=== PATIENT | male | born 1945 | race Two or more races ===

== ENCOUNTER 2018-10-10 09:22 | Inpatient (IN) | payer MEDICARE, MEDICAID ==
[~2018-10-10] VITALS: Ht 172.7 cm; Wt 77.1 kg
[2018-10-10 01:15] VITALS: BP 150/80
--- NOTE | 2018-10-10 09:22 | NUR ---
BIB SELF W C/O MIDSTERNAL CHEST PAIN X 5 DAYS, COUGH X 10 DAYS. TO ER BED 4, HOOKED TO MONITOR, CHANGED TO DR RIO BRICEÑO AT BEDSIDE, RESEARCH EDITOR AT BEDSIDE
[2018-10-10] MEDS ORDERED: IPRATROPIUM NEB FS 0.5 MG/2.5 ML AMPUL.NEB ONE (09:49)
[2018-10-10] MEDS ORDERED: ALBUTEROL FS 2.5 MG/3 ML VIAL.NEB ONE (09:49)
[2018-10-10 09:50] LABS: BASOPHILS % (AUTO) 0.5 % (0.0-2.0); EOSINOPHILS % (AUTO) 3.8 % (0.0-6.0); HEMATOCRIT 37 % (39-51); HEMOGLOBIN 12.9 g/dL (13.5-17.5); LYMPHOCYTES # (AUTO) 1.7 /CMM (0.8-4.8); LYMPHOCYTES % (AUTO) 18.4 % (20.0-44.0); MEAN CORPUSCULAR HGB CONC 35 g/dl (31.0-36.0); MEAN CORPUSCULAR VOLUME 92 fL (80-96); MONOCYTES % (AUTO) 10.6 % (2.0-12.0); NEUTROPHILS # (AUTO) 6.1 /CMM (1.8-8.9); NEUTROPHILS % (AUTO) 66.7 % (43.0-81.0); PLATELET COUNT (AUTO) 146 /CMM (150-450); RED BLOOD CELL COUNT(AUTO) 4.05 MIL/uL (4.5-6.0); WHITE BLOOD COUNT (AUTO) 9.2 K/uL (4.3-11.0)
[2018-10-10 09:57] LABS: POTASSIUM 3.9 mmol/L (3.5-5.1)
[2018-10-10 09:58] LABS: CALCIUM, SERUM 8.7 mg/dL (8.5-10.1); CARBON DIOXIDE 28 mmol/L (21-32); CHLORIDE 105 mmol/L (98-107); CREATININE 1.3 mg/dL (0.6-1.3); GLUCOSE 130 mg/dL (74-106); SODIUM SERUM 140 mmol/L (136-145); UREA NITROGEN, BLOOD 18 mg/dL (7-18)
[2018-10-10] MEDS ORDERED: IV NS 0.9% 1,000 ML BAG IV ONE (10:00)
[2018-10-10] MEDS ORDERED: IPRATROPIUM NEB FS 0.5 MG/2.5 ML AMPUL.NEB NEB ONE (10:00)
[2018-10-10] MEDS ORDERED: ALBUTEROL FS 2.5 MG/3 ML VIAL.NEB NEB ONE (10:00)
[2018-10-10 10:04] LABS: ALANINE AMINOTRANSFERASE 33 U/L (12-78); ALBUMIN 3.6 g/dL (3.4-5.0); ALKALINE PHOSPHATASE 59 U/L (46-116); ASPARTATE AMINOTRANSFERASE 16 U/L (15-37); BILIRUBIN,DIRECT 0.1 mg/dL (0.0-0.2); BILIRUBIN,TOTAL 0.7 mg/dL (0.2-1.0); TOTAL PROTEIN, SERUM 7.4 g/dL (6.4-8.2)
--- NOTE | 2018-10-10 10:07 | NUR ---
ONGOING BREATHING TREATMENT
--- NOTE | 2018-10-10 11:12 | NUR ---
CALLED [employer] [facility]SP WAS PAGED.
[2018-10-10] MEDS ORDERED: CHOL100044 PO (11:13)
[2018-10-10] MEDS ORDERED: CARV25TA2 PO (11:13)
[2018-10-10] MEDS ORDERED: LEVO88TA2 PO (11:13)
[2018-10-10] MEDS ORDERED: SACU1TAB4 PO (11:13)
[2018-10-10] MEDS ORDERED: POTA20TA83 PO (11:13)
[2018-10-10] MEDS ORDERED: METF500T PO (11:13)
[2018-10-10] MEDS ORDERED: CLOP75TA15 PO (11:13)
[2018-10-10] MEDS ORDERED: CEFTRIAXONE 1GM BAG (ER ONLY) 50 ML IV ONE ×2 (11:28→11:30)
[2018-10-10] MEDS ORDERED: ASPIRIN 81 MG TAB.CHEW ONE (11:28)
[2018-10-10] MEDS ORDERED: AZITHROMYCIN 500 MG in IV D5W 250 ML IV ONE (11:30)
[2018-10-10] MEDS ORDERED: ASPIRIN 81 MG TAB.CHEW PO ONE (11:30)
--- NOTE | 2018-10-10 11:30 | NUR ---
PT DOES NOT WANT TO RECEIVE CEFTRIAXONE AND ZITHROMYCIN. FAM WOULD LIKE TO GO HOME AND CHECK FOR PT'S ALLERGY TO ANTIBIOTICS. MADE AWARE
--- NOTE | 2018-10-10 11:45 | NUR ---
FAMILY INFORMED PT'S ALLERGY TO CEPHALEXIN. MADE AWARE. CANCELLED ORDER FOR CEFTRIAXONE AND ZITHROMYCIN.
--- NOTE | 2018-10-10 11:54 | NUR ---
REPORT GIVEN TO CARLOS SIMEON OF TELEMETRY UNIT
[2018-10-10] MEDS ORDERED: LEVOFLOXACIN 750 MG /D5W 150ML 150 ML IV ONE ×2 (11:55→12:00)
--- NOTE | 2018-10-10 12:50 | NUR ---
MS/tin pot operator New admission from emergency room with persistent cough for the past 10 days with some chest pain due to coughing. Patient fully admitted apart from skin assessment, refusing to allow at this time. Orders given by Kevin Slater NP. Oriented to new surroundings, made aware of how to operate bed controls, TV remote and how to call for nurse. Will continue to monitor and ensure safety.
[2018-10-10] MEDS ORDERED: DEXTROSE 50%-WATER 50 ML DISP.SYRIN IV PRN (13:00)
--- NOTE | 2018-10-10 15:53 | NUR ---
MS/RN Breathing treatment RT at bedside for breathing treatment.
[2018-10-10] MEDS: ALBUTEROL FS 2.5 MG/3 ML VIAL.NEB NEB PRN (15:55)
[2018-10-10] MEDS: IPRATROPIUM NEB FS 0.5 MG/2.5 ML AMPUL.NEB NEB PRN (15:55)
[2018-10-10 16:00] VITALS: BP 154/84
[2018-10-10 16:09] VITALS: BP 150/84
[2018-10-10] MEDS: BLOOD SUGAR DIAGNOSTIC 1 EACH STRIP IN SCH ×2 (17:00→22:06)
--- NOTE | 2018-10-10 18:23 | NUR ---
MS/RN End note Patient continues to complain of cough which in turn causes chest pain. MD notified and order given for Robitussin with codeine 5ml every 8 hours prn, order entered into computer. All other needs addressed, will endorse to closet organizer.
[2018-10-10] MEDS ORDERED: GUAIFENESIN/CODEINE 10 ML UDC PO PRN (18:30)
--- NOTE | 2018-10-10 18:43 | NUR ---
MS/RN Temperature Patient complaining of feeling hot, temperature checked and found to be 100.1. Tylenol 650mg ordered, blood cultures previously taken in ER and results still pending.
[2018-10-10] MEDS: ACETAMINOPHEN 325 MG TABLET PO PRN (18:46)
--- NOTE | 2018-10-10 19:30 | NUR ---
PRIMARY SPECIAL EDUCATION TEACHER NOTE RECEIVED IN STABLE A/O X4, SLOVAK SPEAKING BUT UNDERSTANDS SOMALI. NO SIGNS OF SOB OR DISTRESS. PT CURRENTY ON RA 96%. AND SON AT BEDSIDE. TELE MONITOR READING SR 111. IV ON RAC #18 PATENT AND INTACT H/L. SAFETY PRECAUTIONS IN PLACE: BED IN LOW, LOCKED POSITION, UPPER BED RAILS UP, AND CALL LIGHT WITHIN REACH. WILL CONT TO MONITOR.
[2018-10-10] MEDS: CARVEDILOL 12.5 MG TABLET PO SCH (20:33)
[2018-10-10 20:54] VITALS: BP 152/93
[2018-10-10] MEDS: INSULIN REGULAR, HUMAN 100 UNIT/ML 3 ML VIAL SQ PRN (21:59)
[2018-10-11 00:07] VITALS: BP 145/84
[2018-10-11] MEDS: ACETAMINOPHEN 325 MG TABLET PO PRN ×4 (03:07→20:17)
--- NOTE | 2018-10-11 03:07 | NUR ---
MS RN NOTE PRN TYLENOL 650 MG GIVEN FOR FEVER. 99.9. PT. CURRENTLY RESTING IN BED. NO SIGNS OF SOB OR DISTRESS. COOLING MEASURES ALSO STARTED. WILL CONT. TO MONITOR.
--- NOTE | 2018-10-11 03:19 | NUR ---
INTERNAL COMBUSTION ENGINE ASSEMBLER NOTE NOTIFIED IRIS RETAIL ADMINISTRATIVE ASSISTANT OF TROPONIN 0.078 AND BNP [id number] WITH NNO.
[2018-10-11] MEDS: ALBUTEROL FS 2.5 MG/3 ML VIAL.NEB NEB PRN ×4 (04:13→21:14)
[2018-10-11] MEDS: IPRATROPIUM NEB FS 0.5 MG/2.5 ML AMPUL.NEB NEB PRN ×4 (04:13→21:14)
[2018-10-11 04:17] VITALS: BP 131/60
--- NOTE | 2018-10-11 06:31 | NUR ---
KEY ACCOUNT COORDINATOR NOTE PT. IN STABLE A/O X4, AMERICAN SPEAKING BUT UNDERSTANDS MALAWIAN. NO SIGNS OF SOB OR DISTRESS. PT CURRENTLY ON RA 96%. TELE MONITOR READING SR 98. IV ON RAC #18 PATENT AND INTACT H/L. SAFETY PRECAUTIONS IN PLACE: BED IN LOW, LOCKED POSITION, UPPER BED RAILS UP, AND CALL LIGHT WITHIN REACH. WILL CONT TO MONITOR AND ENDORSE TO NEXT SHIFT FOR RIGOBERTO.
[2018-10-11] MEDS: BLOOD SUGAR DIAGNOSTIC 1 EACH STRIP IN SCH ×4 (06:46→21:23)
[2018-10-11 07:08] LABS: BASOPHILS % (AUTO) 0.2 % (0.0-2.0); EOSINOPHILS % (AUTO) 0.3 % (0.0-6.0); HEMATOCRIT 33 % (39-51); HEMOGLOBIN 11.2 g/dL (13.5-17.5); LYMPHOCYTES # (AUTO) 2.2 /CMM (0.8-4.8); LYMPHOCYTES % (AUTO) 19.9 % (20.0-44.0); MEAN CORPUSCULAR HGB CONC 34 g/dl (31.0-36.0); MEAN CORPUSCULAR VOLUME 91 fL (80-96); MONOCYTES % (AUTO) 8.7 % (2.0-12.0); NEUTROPHILS % (AUTO) 70.9 % (43.0-81.0); PLATELET COUNT (AUTO) 138 /CMM (150-450); RED BLOOD CELL COUNT(AUTO) 3.59 MIL/uL (4.5-6.0); WHITE BLOOD COUNT (AUTO) 11.2 K/uL (4.3-11.0)
[2018-10-11 07:21] LABS: CALCIUM, SERUM 8.6 mg/dL (8.5-10.1); CARBON DIOXIDE 25 mmol/L (21-32); CHLORIDE 106 mmol/L (98-107); CREATININE 1.4 mg/dL (0.6-1.3); GLUCOSE 97 mg/dL (74-106); POTASSIUM 3.6 mmol/L (3.5-5.1); SODIUM SERUM 142 mmol/L (136-145); UREA NITROGEN, BLOOD 21 mg/dL (7-18)
[2018-10-11] MEDS ORDERED: LEVOTHYROXINE SODIUM 175 MCG TABLET PO SCH (07:30)
[2018-10-11 07:32] LABS: CHOLESTEROL 105 mg/dL (<200); HDL CHOLESTEROL 42 mg/dL (40-60); LDL 61 mg/dL (0-99); THYROID STIMULATING HORMONE < 0.007 uIU/mL (0.358-3.74); TRIGLYCERIDES 70 mg/dL (30-150)
--- NOTE | 2018-10-11 07:32 | NUR ---
RN OPENING NOTES PT WAS RECEIVED IN BED AT LOWEST AND LOCKED POSITION WITH SIDE RAILS UP X2, A/O X4, BREATHING EVEN AND UNLABORED BUT NOTED TO HAVE A COUGH, NO S/S OF PAIN OR DISTRESS CURRENTLY NOTED, IV IS PATENT AND INTACT, SAFETY PRECAUTIONS IN PLACE, CALL LIGHT WITHIN REACH, WILL MONITOR ACCORDINGLY
--- NOTE | 2018-10-11 07:40 | NUR ---
RN NOTES PT CURRENTLY RECEIVING PRN BREATHING TX
[2018-10-11] MEDS: LEVOTHYROXINE SODIUM 100 MCG TABLET PO SCH (07:45)
[2018-10-11] MEDS: LEVOTHYROXINE SODIUM 88 MCG TABLET PO SCH (07:45)
[2018-10-11 08:00] VITALS: BP 130/68
[2018-10-11] MEDS: VALSARTAN 80 MG TABLET PO SCH (08:33)
[2018-10-11] MEDS: CLOPIDOGREL BISULFATE 75 MG TABLET PO SCH (08:34)
[2018-10-11] MEDS: CARVEDILOL 12.5 MG TABLET PO SCH ×2 (08:34→20:16)
[2018-10-11] MEDS: LEVOFLOXACIN 750 MG /D5W 150ML 750 MG in PREMIX 1 EA IV SCH (08:35)
[2018-10-11] MEDS ORDERED: VALSARTAN 80 MG TABLET PO SCH (09:00)
--- NOTE | 2018-10-11 11:50 | NUR ---
RN NOTE ROBITUSSIN GIVEN AT THIS TIME FOR PATIENT HACKING COUGH
[2018-10-11] MEDS: GUAIFENESIN/CODEINE 10 ML UDC PO PRN (11:51)
--- NOTE | 2018-10-11 12:11 | NUR ---
RN NOTE BLOOD GLUCOSE WAS NOTED TO BE 117, NO INSULIN NEEDED OR GIVEN ACCORDING TO S/S
[2018-10-11] MEDS: BENZONATATE 100 MG CAPSULE PO PRN (14:38)
[2018-10-11 16:00] VITALS: BP 135/76
--- NOTE | 2018-10-11 17:30 | NUR ---
RN NOTE PT BLOOD GLUCOSE WAS NOTED TO BE 111 AT THIS TIME, NO INSULIN NEED OR GIVEN ACCORDING TO S/S
--- NOTE | 2018-10-11 18:02 | NUR ---
RN CLOSING NOTES PT IN BED AT LOWEST AND LOCKED POSITION WITH SIDE RAILS UP X2, A/O X4 GERMAN SPEAKING, BREATHING EVEN AND UNLABORED BUT STILL HAS A COUGH, NO S/S OF PAIN OR DISTRESS, IV IS PATENT AND INTACT, PT IS AMBULATORY, SAFETY PRECAUTIONS IN PLACE, CALL LIGHT WITHIN REACH, ALL NEEDS ATTENDED TO, WILL ENDORSE TO SKI LIFT ATTENDANT RN FOR CONTINUITY OF CARE.
--- NOTE | 2018-10-11 19:15 | NUR ---
MS RN NOTE RECEIVED PT IN STABLE CONDITION A&O X4, GIBRALTARIAN SPEAKING, UNDERSTANDS MALAY. BREATHING EVEN AND UNLABORED WITH NO SIGNS OF DISTRESS. PT IS AMBULATORY WITH STEADY GAIT. STILL HAS A COUGH. IV PATENT AND INTACT. IS AT BEDSIDE. SAFETY PRECAUTIONS IN PLACE: BED LOW, LOCKED POSITION, UPPER RAILS UP, AND CALL LIGHT WITHIN REACH. WILL CONT TO MONITOR.
--- NOTE | 2018-10-11 19:42 | NUR ---
MS RN NOTE PT. ASKED FOR PRN TYLENOL 650 MG. WHEN MED WAS BROUGHT TO BEDSIDE, PT STATED HE WANTED TO KEEP IT UNTIL HE WENT TO BED. EXPLAINED TO PT THAT MEDICATION MUST BE CONSUMED IN FRONT OF ME, HE STATED THAT IT WAS ACTUALLY FOR HIS . MEDICATION WAS TAKEN BACK AND WASTED IN MED ROOM.
[2018-10-11 20:00] VITALS: BP 123/80
--- NOTE | 2018-10-11 20:38 | NUR ---
MS RN NOTE PRN TYLENOL 650 MG GIVEN TO PT FOR FEVER 99.4. COOLING MEASURES INITIATED, PT STABLE WITH NO SIGNS OF DISTRESS NOTED. WILL CONT TO MONITOR.
--- NOTE | 2018-10-11 21:09 | NUR ---
Met with patient, son Alen and patient sister at bedside. Patient primary language is Greek. He lives alone locally. He is ambulatory and independent with adl's. Has no DME or homehalth reported. Family is requesting homehealth follow up with [facility] [phone] prior discharge. Addendum: 10/11/18 at 2110 by MARITZA BECKMAN RN Amended: Links added.
[2018-10-11] MEDS: INSULIN REGULAR, HUMAN 100 UNIT/ML 3 ML VIAL SQ PRN (21:25)
[2018-10-12] MEDS: BENZONATATE 100 MG CAPSULE PO PRN (00:08)
[2018-10-12] MEDS: ALBUTEROL FS 2.5 MG/3 ML VIAL.NEB NEB PRN ×2 (01:29→12:36)
[2018-10-12] MEDS: IPRATROPIUM NEB FS 0.5 MG/2.5 ML AMPUL.NEB NEB PRN ×2 (01:29→12:36)
[2018-10-12] MEDS: GUAIFENESIN/CODEINE 10 ML UDC PO PRN (01:56)
--- NOTE | 2018-10-12 01:56 | NUR ---
MS RN NOTE PRN ROBITUSSIN GIVEN TO PT FOR COUGH. WILL CONT TO MONITOR.
--- NOTE | 2018-10-12 03:23 | NUR ---
MS SIMEON NOTE LANNY VENEGAS GIVEN TO PT FOR COUGH. WILL CONT TO MONITOR. Addendum: 10/12/18 at 0324 by JAROCHO BRANDT RN MEDICATION GIVEN AT 1208 NOT 0324
--- NOTE | 2018-10-12 06:15 | NUR ---
MS RN NOTE PT IN STABLE CONDITION A&O X4, LAO SPEAKING, UNDERSTANDS CZECH. BREATHING EVEN AND UNLABORED WITH NO SIGNS OF DISTRESS. PT IS AMBULATORY WITH STEADY GAIT. STILL HAS A COUGH. IV PATENT AND INTACT. SAFETY PRECAUTIONS IN PLACE: BED LOW, LOCKED POSITION, UPPER RAILS UP, AND CALL LIGHT WITHIN REACH. WILL CONT TO MONITOR AND ENDORSE TO NEXT SHIFT FOR RIGOBERTO.
[2018-10-12] MEDS: BLOOD SUGAR DIAGNOSTIC 1 EACH STRIP IN SCH ×2 (06:52→12:00)
--- NOTE | 2018-10-12 07:46 | NUR ---
MS RN OPENING NOTE RECEIVED PT IN BED, SLEEPING AND EASILY AROUSABLE. PT IS ALERT AND ORIENTED X4, PRIMARILY BOTSWANAN SPEAKING BUT ABLE TO MAKE NEEDS KNOWN AND COMMUNICATE VIA SLOVAK. DENIES N/V, CHEST PAIN, SOB. BREATHING IS EVEN AND UNLABORED ON ROOM AIR, NO ACUTE DISTRESS NOTED AT THIS TIME. R AC #18G IV IS SALINE LOCKED WITHOUT REDNESS OR SWELLING. PLANS FOR POSSIBLE D/C BACK HOME TODAY. REVIEWED USE OF CALL SYSTEM AND TO CALL FOR ASSISTANCE PRIOR TO GETTING OUT OF BED, PT VERBALIZED AGREEMENT AND UNDERSTANDING. ALL NEEDS ATTENDED TO, BED IS LOCKED AND IN LOWEST POSITION, SIDE RAILS UP X2, CALL LIGHT WITHIN REACH.
[2018-10-12 08:00] VITALS: BP 136/75
[2018-10-12] MEDS: VALSARTAN 80 MG TABLET PO SCH (08:21)
[2018-10-12] MEDS: LEVOTHYROXINE SODIUM 88 MCG TABLET PO SCH (08:21)
[2018-10-12] MEDS: LEVOTHYROXINE SODIUM 100 MCG TABLET PO SCH (08:21)
[2018-10-12 08:22] VITALS: BP 136/75
[2018-10-12] MEDS: CLOPIDOGREL BISULFATE 75 MG TABLET PO SCH (08:22)
[2018-10-12] MEDS: LEVOFLOXACIN 750 MG /D5W 150ML 750 MG in PREMIX 1 EA IV SCH (08:22)
[2018-10-12] MEDS: CARVEDILOL 12.5 MG TABLET PO SCH (08:22)
--- NOTE | 2018-10-12 12:02 | NUR ---
MS RN NOTE PT REFUSED ACCU CHECK, STATED HE IS BEING DISCHARGED SHORTLY. RISKS AND BENEFITS EXPLAINED, PT STILL REFUSED
--- NOTE | 2018-10-12 12:31 | NUR ---
MS RN PATIENT DISCHARGED PT DISCHARGE HOME VIA PRIVATE CAR IN MEDICALLY STABLE CONDITION. ACCOMPANIED BY SON HAYDER. PT IS ALERT AND ORIENTED X4, DENIES N/V, CHEST PAIN, SOB. BREATHING IS EVEN AND UNLABORED ON ROOM AIR. VS WNL. ALL DUE MEDICATIONS PROVIDED ORDERED. R AC PERIPHERAL IV REMOVED WITH CATHETER TIP INTACT. DISCHARGE INSTRUCTIONS AND EDUCATION PROVIDED PER PROTOCOL AT THE BEDSIDE WITH PT AND SON. INFORMED PT AND SON TO CALL 911 OR RETURN TO THE NEAREST ER FOR SOB, CHEST PAIN, UNILATERAL CALF SWELLING AND PAIN, A TEMPERATURE THAT DOES NOT DECREASE WITH TYLENOL, OR REOCCURRENCE OF SYMPTOMS. BOTH VERBALIZED UNDERSTANDING. PROVIDED PRESCRIPTIONS, REVIEWED D/C INSTRUCTIONS FROM PROVIDER TO TAKE LEVAQUIN ORDERED, TESSALON PEARLS NEEDED, AND TO FOLLOW UP WITH PCP IN ONE WEEK, AND TO WHICH HOME MEDICATION TO CONTINUE. SMOKING CESSATION EDUCATION PROVIDED ORDERED. PROVIDED CONTACT INFORMATION FOR [facility] [employer]. BOTH THE PT AND SON VERBALIZED UNDERSTANDING. ALL BELONGINGS ACCOUNTED FOR, BELONGINGS LIST SIGNED AND PLACED IN CHART. THE NURSE ACCOMPANIED THE PT AND SON TO THE MAIN LOBBY WITHOUT INCIDENT.
== END 2018-10-12 12:50 | disposition home health service (06) | DRG 202 ==
LOC: ER 09:24 → TELE 12:08 → MED 10-11 08:52
PROVIDERS: ADMIT Nurse Practitioner Acute Care; ATTEND Nurse Practitioner Acute Care
DX: J20.9 Acute bronchitis, unspecified (principal); I21.A1 Myocardial infarction type 2; I13.0 Hypertensive heart and chronic kidney disease with heart failure and stage 1 through stage 4 chronic kidney disease, or unspecified chronic kidney disease; I50.32 Chronic diastolic (congestive) heart failure; I49.9 Cardiac arrhythmia, unspecified; I25.10 Atherosclerotic heart disease of native coronary artery without angina pectoris; Z95.810 Presence of automatic (implantable) cardiac defibrillator; N18.9 Chronic kidney disease, unspecified; E89.0 Postprocedural hypothyroidism; D63.8 Anemia in other chronic diseases classified elsewhere; E11.22 Type 2 diabetes mellitus with diabetic chronic kidney disease; F17.210 Nicotine dependence, cigarettes, uncomplicated; E78.5 Hyperlipidemia, unspecified
CPT/HCPCS: 36415; 71045-TC; 80048-TC; 80061-TC; 80076-TC; 82962-TC; 83605-TC; 83880; 84439-TC; 84443-TC; 84484-TC; 85025-TC; 85730-TC; 87040-TC; 87081-TC; 93307-TC; A4216; G0378; J0456; J0696; J1815; J1956; J7030; J7060

== ENCOUNTER 2019-02-06 01:10 | Emergency (ER) | payer MEDICARE, MEDICAID ==
[~2019-02-06] VITALS: Ht 167.6 cm; Wt 78.0 kg
[~2019-02-06 01:10] MED LIST: CARV25TA2 PO; CHOL100044 PO; CLOP75TA15 PO; LEVO88TA2 PO; METF500T PO; POTA20TA83 PO; SACU1TAB4 PO
--- NOTE | 2019-02-06 01:40 | NUR ---
PT BIBSELF C/O PRODUCTIVE COUGH X3 DAYS. DESCRIBED YELLOW SPUTUM. PER , STATES PT HAD FEVER X1 DAY AGO, UNKNOWN TMAX. PT AAOX4. RESPIRATIONS EVEN AND UNLABORED. SKIN WARM AND INTACT. VITAL SIGNS STABLE. NO ACUTE DISTRESS NOTED AT THIS TIME. WILL CONTINUE TO MONITOR
--- NOTE | 2019-02-06 01:49 | NUR ---
FLU SWAB COLLECTED AND SENT TO LAB
--- NOTE | 2019-02-06 01:50 | NUR ---
RADIOLOGY AT BEDSIDE FOR CXR
--- NOTE | 2019-02-06 02:06 | NUR ---
CALLED [facility] FOR PENDING CHEST XRAY
--- NOTE | 2019-02-06 02:37 | NUR ---
Patient discharged to home in stable condition. Written and verbal after care instructions given. Patient verbalizes understanding of instruction.Pt ambulatory with a steady gait
[2019-02-06 02:39] VITALS: BP 150/73
[2019-04-14] MEDS ORDERED: METH4TAB3 PO (08:34)
== END 2019-02-06 02:40 | disposition home or self-care (01) ==
LOC: ER 01:12
DX: J06.9 Acute upper respiratory infection, unspecified (principal); I10 Essential (primary) hypertension; E11.9 Type 2 diabetes mellitus without complications; F10.10 Alcohol abuse, uncomplicated; F17.200 Nicotine dependence, unspecified, uncomplicated; Y90.9 Presence of alcohol in blood, level not specified; Z85.850 Personal history of malignant neoplasm of thyroid; Z95.810 Presence of automatic (implantable) cardiac defibrillator
CPT/HCPCS: 71045-TC; 87400

== ENCOUNTER 2019-04-12 08:11 | Inpatient (IN) | payer MEDICARE, MEDICAID ==
[~2019-04-12] VITALS: Ht 170.2 cm; Wt 75.3 kg
[2019-04-12] VITALS (15 sets, daily range): BP systolic 123–157; BP diastolic 62–107
--- NOTE | 2019-04-12 08:26 | NUR ---
BIB from home, c/o swollen upper lip and patient states " i can't breath when i lay down". On room air, breathing evenly and labored. connected to the monitor and pulse ox. Kept comfortable, will continue to monitor accordingly.
[2019-04-12] MEDS ORDERED: ONDANSETRON HCL/PF 4 MG/2 ML VIAL ONE (08:29)
[2019-04-12] MEDS ORDERED: methylPREDNISolone SOD SUCC 125 MG/2ML VIAL ONE (08:29)
[2019-04-12] MEDS ORDERED: diphenhydrAMINE HCL 50 MG/ML VIAL ONE (08:29)
[2019-04-12] MEDS ORDERED: methylPREDNISolone SOD SUCC 125 MG/2ML VIAL IV ONE (08:30)
[2019-04-12] MEDS ORDERED: ONDANSETRON HCL/PF 4 MG/2 ML VIAL IVP ONE (08:30)
[2019-04-12] MEDS ORDERED: IV NS 0.9% 500 ML BAG IV ONE (08:30)
[2019-04-12] MEDS ORDERED: diphenhydrAMINE HCL 50 MG/ML VIAL IV ONE (08:30)
[2019-04-12 08:35] LABS: BASOPHILS % (AUTO) 0.2 % (0.0-2.0); EOSINOPHILS % (AUTO) 6.2 % (0.0-6.0); HEMATOCRIT 37 % (39-51); HEMOGLOBIN 12.7 g/dL (13.5-17.5); LYMPHOCYTES # (AUTO) 1.2 /CMM (0.8-4.8); LYMPHOCYTES % (AUTO) 12.6 % (20.0-44.0); MEAN CORPUSCULAR HGB CONC 34 g/dl (31.0-36.0); MEAN CORPUSCULAR VOLUME 92 fL (80-96); MONOCYTES # (AUTO) 0.9 /CMM (0.1-1.30); MONOCYTES % (AUTO) 9.3 % (2.0-12.0); NEUTROPHILS % (AUTO) 71.7 % (43.0-81.0); PLATELET COUNT (AUTO) 151 /CMM (150-450); RED BLOOD CELL COUNT(AUTO) 4.05 MIL/uL (4.5-6.0); WHITE BLOOD COUNT (AUTO) 9.8 K/uL (4.3-11.0)
--- NOTE | 2019-04-12 08:35 | NUR ---
IV LINE ESTABLISHED, BLOOD DRAWNED AND SENT TO LAB.
[2019-04-12 08:43] LABS: CALCIUM, SERUM 8.6 mg/dL (8.5-10.1); CARBON DIOXIDE 27 mmol/L (21-32); CHLORIDE 105 mmol/L (98-107); CREATININE 1.3 mg/dL (0.6-1.3); GLUCOSE 145 mg/dL (74-106); POTASSIUM 3.9 mmol/L (3.5-5.1); SODIUM SERUM 143 mmol/L (136-145); UREA NITROGEN, BLOOD 25 mg/dL (7-18)
[2019-04-12 08:48] LABS: ALANINE AMINOTRANSFERASE 31 U/L (12-78); ALBUMIN 3.5 g/dL (3.4-5.0); ALKALINE PHOSPHATASE 50 U/L (46-116); ASPARTATE AMINOTRANSFERASE 12 U/L (15-37); BILIRUBIN,DIRECT 0.2 mg/dL (0.0-0.2); BILIRUBIN,TOTAL 0.8 mg/dL (0.2-1.0); TOTAL PROTEIN, SERUM 6.7 g/dL (6.4-8.2)
[2019-04-12] MEDS ORDERED: RACEPINEPHRINE HCL 2.25% NEB 0.5 ML VIAL.NEB IH ONE ×2 (10:14→10:30)
[2019-04-12] MEDS ORDERED: ATOR10TA PO (10:18)
[2019-04-12] MEDS ORDERED: TADA5TAB13 PO (10:18)
[2019-04-12] MEDS ORDERED: ESOM40CA52 PO (10:18)
[2019-04-12] MEDS ORDERED: AMLO5TAB9 PO (10:18)
--- NOTE | 2019-04-12 10:18 | NUR ---
paged epic personalized living manager nurse
--- NOTE | 2019-04-12 10:20 | NUR ---
RT AT BEDSIDE FOR BREATHING TREATMENT.
--- NOTE | 2019-04-12 10:36 | NUR ---
AT BEDSIDE FOR EVAL.
[2019-04-12] MEDS ORDERED: ALBUTEROL FS 2.5 MG/3 ML VIAL.NEB ONE (10:40)
[2019-04-12] MEDS ORDERED: ALBUTEROL FS 2.5 MG/3 ML VIAL.NEB NEB STA (10:41)
--- NOTE | 2019-04-12 11:00 | NUR ---
REPORT GIVEN TO CAILIN SERNA FOR RIGOBERTO.
--- NOTE | 2019-04-12 11:45 | NUR ---
DRAFT ROLLER PICKERPHLEBOTOMY SERVICES TECHNICIAN NOTES REPORT GIVEN BY CAILIN TROY IN ER.RECEIVED PT FROM ER TO ROOM 251 VIA GURNEY.PT AMBULATED WELL FROM DOORWAY TO BED.ALERT/ORIENTED X4,YI SPEAKING.UNDERSTANDS AND SPEAK UKRAINIAN WELL.ON ROOM AIR,TOLERATING WELL WITH O2 SATURATION 92%.NO SOB AND ACUTE DISTRESS NOTED.VITAL SIGNS CHECKED AND RECORDED.BEDSIDE MONITOR PRESENT.SKIN ASSESSMENT IS DONE AND NOTED WITH UPPER LIP EDEMA AND SWELLING.IV LINE IS ON LEFT AC G20,SL.SITE IS CLEAN,DRY AND INTACT.NO INFILTRATION NOTED.FAMILY IS AT BEDSIDE.BED IS IN LOW POSITION,SEMIFOWLERS.CALL LIGHT IS WITHIN REACH.WILL CONTINUE THE CARE. Addendum: 04/12/19 at 1922 by KAREEM TEJADA RN DEFIBRILLATOR PRESENT.
[2019-04-12] MEDS ORDERED: RACEPINEPHRINE HCL 2.25% NEB 0.5 ML VIAL.NEB IH PRN (12:00)
[2019-04-12] MEDS ORDERED: diphenhydrAMINE HCL 50 MG/ML VIAL IV PRN ×2 (12:00→12:30)
[2019-04-12] MEDS ORDERED: FAMOTIDINE/PF INJ 20 MG/2 ML VIAL IV SCH (12:00)
--- NOTE | 2019-04-12 12:10 | NUR ---
COREMAKER FLOOR NOTES STARTED PLASMA INFUSION PER ON IV G20 IN LEFT AC.PT TOLERATING WELL.
[2019-04-12] MEDS ORDERED: ONDANSETRON HCL/PF 4 MG/2 ML VIAL IVP PRN (12:30)
[2019-04-12] MEDS ORDERED: Z GUARD REMEDY 2 OZ OINT TP PRN (12:30)
[2019-04-12] MEDS ORDERED: ACETAMINOPHEN 325 MG TABLET PO PRN (12:30)
[2019-04-12] MEDS: DEXAMETHASONE SOD PHOSPHATE 4 MG/ML VIAL IV SCH ×2 (12:34→17:03)
[2019-04-12] MEDS: FAMOTIDINE/PF INJ 20 MG/2 ML VIAL IV SCH ×2 (12:35→21:55)
[2019-04-12] MEDS: methylPREDNISolone SOD SUCC 125 MG/2ML VIAL IV SCH ×2 (12:35→16:27)
[2019-04-12] MEDS: IV 1/2NS 1000 ML 1,000 ML IV PRN (12:53)
--- NOTE | 2019-04-12 13:30 | NUR ---
EQUAL OPPORTUNITY COUNSELOR NOTES PT REQUESTED TO HAVE 1LPM O2 VIA NC WITH O2 SATURATION 96%.
--- NOTE | 2019-04-12 13:30 | NUR ---
SUPERVISOR TICKET SALES NOTES PT HAS DONE 2 BAG OF FFP.PT TOLERATED WELL.
--- NOTE | 2019-04-12 18:52 | NUR ---
NURSE'S COMPANION CLOSING NOTES PATIENT ALERT/ORIENTED X4.ON NASAL CANULA O2 2 L, TOLERATING WELL WITH O2 SATURATION 96/97%. NO SOB AND ACUTE DISTRESS NOTED AT THIS TIME. VITAL SIGNS WNL. BEDSIDE MONITOR PRESENT. UPPER LIP EDEMA AND SWELLING. IV LINE IS ON LEFT AC G20, WITH 0.45% NS RUNNING @ 75ML/HR. SITE IS CLEAN,DRY AND INTACT.NO INFILTRATION NOTED.FAMILY IS AT BEDSIDE. BED IS IN LOW/LUCKED POSITION, SEMI FOWLERS. CALL LIGHT IS WITHIN REACH. ALL DUE MEDICATION ARE GIVEN. WILL ENDORSE THE CARE TO UPCOMING SHIFT RN.
--- NOTE | 2019-04-12 20:00 | NUR ---
FIELD SERVICE ANALYST OPENING NOTES RECEIVED PATIENT ALERT/ORIENTED X4 IN BED .ON NASAL CANULA O2 2 L, TOLERATING WELL WITH O2 SATURATION 96%. NO SOB AND ACUTE DISTRESS NOTED AT THIS TIME. VITAL SIGNS WNL. BEDSIDE. UPPER LIP EDEMA AND SWELLING NOTED. IV LINE IS ON LEFT AC G20, WITH 0.45% NS RUNNING @ 75ML/HR. SITE IS CLEAN,DRY AND INTACT.NO INFILTRATION NOTED. BED IS IN LOW/LUCKED POSITION, SEMI FOWLERS. CALL LIGHT IS WITHIN REACH. WILL CONTINUE TO MONITOR PATIENT CLOSELY.
[2019-04-13] VITALS (21 sets, daily range): BP systolic 122–164; BP diastolic 50–100
[2019-04-13] MEDS: DEXAMETHASONE SOD PHOSPHATE 4 MG/ML VIAL IV SCH ×3 (00:50→21:07)
[2019-04-13] MEDS: IV 1/2NS 1000 ML 1,000 ML IV PRN (02:30)
[2019-04-13 04:44] LABS: HEMATOCRIT 35 % (39-51); HEMOGLOBIN 12.1 g/dL (13.5-17.5); LYMPHOCYTES # (AUTO) 1.1 /CMM (0.8-4.8); LYMPHOCYTES % (AUTO) 9.9 % (20.0-44.0); MEAN CORPUSCULAR HGB CONC 35 g/dl (31.0-36.0); MEAN CORPUSCULAR VOLUME 91 fL (80-96); MONOCYTES # (AUTO) 0.1 /CMM (0.1-1.30); MONOCYTES % (AUTO) 1.4 % (2.0-12.0); NEUTROPHILS # (AUTO) 9.4 /CMM (1.8-8.9); NEUTROPHILS % (AUTO) 88.7 % (43.0-81.0); PLATELET COUNT (AUTO) 154 /CMM (150-450); RED BLOOD CELL COUNT(AUTO) 3.79 MIL/uL (4.5-6.0); WHITE BLOOD COUNT (AUTO) 10.6 K/uL (4.3-11.0)
[2019-04-13 04:54] LABS: ALANINE AMINOTRANSFERASE 26 U/L (12-78); ALBUMIN 3.3 g/dL (3.4-5.0); ALKALINE PHOSPHATASE 51 U/L (46-116); ASPARTATE AMINOTRANSFERASE 11 U/L (15-37); BILIRUBIN,TOTAL 0.8 mg/dL (0.2-1.0); CALCIUM, SERUM 8.3 mg/dL (8.5-10.1); CARBON DIOXIDE 24 mmol/L (21-32); CHLORIDE 105 mmol/L (98-107); CREATININE 1.3 mg/dL (0.6-1.3); GLUCOSE 157 mg/dL (74-106); MAGNESIUM 1.7 mg/dL (1.8-2.4); PHOSPHORUS 4.4 mg/dL (2.5-4.9); POTASSIUM 3.6 mmol/L (3.5-5.1); SODIUM SERUM 144 mmol/L (136-145); TOTAL PROTEIN, SERUM 6.8 g/dL (6.4-8.2); UREA NITROGEN, BLOOD 25 mg/dL (7-18)
[2019-04-13 05:01] LABS: CHOLESTEROL 147 mg/dL (<200); HDL CHOLESTEROL 48 mg/dL (40-60); LDL 92 mg/dL (0-99); TRIGLYCERIDES 69 mg/dL (30-150)
--- NOTE | 2019-04-13 06:36 | NUR ---
DISTRICT BRANCH MANAGER CLOSING NOTES PATIENT IS RESTING IN THE BED ALERT/ORIENTED X4.ON NASAL CANULA O2 2 L, TOLERATING WELL WITH O2 SATURATION 96%-97%. NO SOB AND ACUTE DISTRESS NOTED AT THIS TIME. VITAL SIGNS WNL. CONNECTED TO BEDSIDE MONITOR . UPPER LIP EDEMA AND SWELLING. IV LINE IS ON LEFT AC G20 PATIENT AND INTACT WITH 0.45% NS RUNNING @ 75ML/HR. SITE IS CLEAN,DRY AND INTACT.NO INFILTRATION NOTED.BED IS IN LOW/LUCKED POSITION, SEMI FOWLERS POSITION . CALL LIGHT IS WITHIN REACH. ALL DUE MEDICATION ARE GIVEN. WILL ENDORSE PATIENT CARE TO UPCOMING SHIFT RN FOR RESIDENT PROGRAMS ASSISTANT.
[2019-04-13] MEDS: FAMOTIDINE/PF INJ 20 MG/2 ML VIAL IV SCH ×2 (08:18→21:10)
[2019-04-13] MEDS: methylPREDNISolone SOD SUCC 125 MG/2ML VIAL IV SCH (08:18)
[2019-04-13] MEDS: Magnesium 1GM/D5W 100ML PREMIX 100 ML IV SCH ×2 (10:16→11:47)
[2019-04-13] MEDS: AMLODIPINE BESYLATE 5 MG TABLET PO SCH (11:49)
[2019-04-13] MEDS ORDERED: methylPREDNISolone SOD SUCC 125 MG/2ML VIAL IV SCH (17:00)
[2019-04-13] MEDS ORDERED: diphenhydrAMINE HCL 50 MG/ML VIAL IV PRN (18:00)
--- NOTE | 2019-04-13 18:50 | NUR ---
MS RN RECEIVING/CLOSING NOTES RECEIVED PATIENT FROM ICU VIA WHEELCHAIR. ALERT AND ORIENTED X4 NO SOB OBSERVED. DENIES ANY C/O PAIN NOR DISCOMFORT AT THIS TIME. NO LIP SWELLING NOR TONGUE SWELLING OBSERVED. PATIENT AMBULATORY. FAMILY AT BEDSIDE. SPEAKS LIMITED GUYANESE AND FLUENT IN JORDANIAN. SKIN WARM AND DRY TO TOUCH. V/S TAKEN B/P: 143/83, T:97.7, R:20, HR:88, SPO2 965 ROOM AIR. BED IN LOWEST POSITION. CALL LIGHT WITHIN REACH. ORIENTED TO ROOM AND CALL LIGHT, ENDORSED TO ONCOMING SHIFT.
--- NOTE | 2019-04-13 19:15 | NUR ---
rn initial notes: received report from [facility]. pt transfer from icu. pt met with pt and family at bed side. pt awake, a/o x4 on ra respirations even and unlabored. pt denies any pain or discomfort at this time. lip swelling improved as compared to photos in chart. pt claimed, he felt better, no difficulty swallowing, pt claimed he already ate and no problem so far. denies any pain, dizziness or light headedness. discussed with pt and family regarding plan of care tonight. oriented pt to unit policy and hourly rounding, use of call light. iv access patent and flushing well, on hl. safety precautions for fall initiated, call light in reach, will continue monitoring pt.
--- NOTE | 2019-04-13 20:50 | NUR ---
RN NOTES: PT WORKING ON HIS IPAD, OFFERED SNACK, REQUESTED FOR JELLO AND CRANBERRY JUICE.
--- NOTE | 2019-04-13 22:30 | NUR ---
RN NOTES: REQUESTED FOR CRANBERRY JUICE, PROVIDED WITH 2 BOXES 120ML EACH, BOTH CONSUMED 100%, NO DIFFICULTY SWALLOWING REPORTED
--- NOTE | 2019-04-14 00:33 | NUR ---
rn notes: pt requested for warm milk
--- NOTE | 2019-04-14 06:43 | NUR ---
rn closing notes: pt in bed, awake, remains a/o x4, ambulatory on ra, denies any sob or difficulty swallowing. facial edema improved. iv access remains patent and flushing well, on hl. vs remains stable, needs attended. safety precautions for fall remains engaged, call light in reach, will endorse to day rn for continuity of care.
[2019-04-14 07:09] LABS: CALCIUM, SERUM 8.4 mg/dL (8.5-10.1); CARBON DIOXIDE 24 mmol/L (21-32); CHLORIDE 104 mmol/L (98-107); CREATININE 1.5 mg/dL (0.6-1.3); GLUCOSE 182 mg/dL (74-106); MAGNESIUM 2.1 mg/dL (1.8-2.4); POTASSIUM 3.7 mmol/L (3.5-5.1); SODIUM SERUM 140 mmol/L (136-145); UREA NITROGEN, BLOOD 39 mg/dL (7-18)
[2019-04-14 08:00] VITALS: BP 140/92
--- NOTE | 2019-04-14 08:00 | NUR ---
RN NOTES RECEIVED PATIENT IN THE BED A/O X4, STABLE NO ACUTE RESPIRATORY DISTRESS, V/S STABLE. PATIENT REFUSED PAIN. PATIENT SEE HOSPITALIST. PATIENT WILL DISCHARGE HOME TODAY. PATIENT AMBULATORY SELF CARE. CALL LIGHT WITHIN TO REACH, CONTINUED MONITORING.
[2019-04-14] MEDS ORDERED: METH4TAB3 PO (08:34)
[2019-04-14] MEDS: DEXAMETHASONE SOD PHOSPHATE 4 MG/ML VIAL IV SCH (08:49)
[2019-04-14] MEDS: FAMOTIDINE/PF INJ 20 MG/2 ML VIAL IV SCH (08:50)
[2019-04-14] MEDS: AMLODIPINE BESYLATE 5 MG TABLET PO SCH (08:50)
[2019-04-14 09:00] VITALS: BP 140/92
[2019-04-14] MEDS ORDERED: AMLODIPINE BESYLATE 5 MG TABLET PO SCH (09:00)
--- NOTE | 2019-04-14 10:20 | NUR ---
LOAN SECRETARY NOTES PATENT DISCHARGE AT THIS TIME GOING HOME. PATIENT STABLE, A/O X4, NO ACUTE RESPIRATORY DISTRESS, V/S STABLE, REFUSED PAIN. MED RECONCILIATION AND DISCHARGE ORDER REVIEWED AND EXPLAINED TO PATIENT. PATIENT VERBALIZED UNDERSTANDING. BELONGING WITH THE PATIENT. PATIENT SIGN PAPERWORK. PRESCRIPTION HANDED TO THE PATIENT. PATIENT WILL FOLLOW PRIMARY MD. REMOVED IV ACCESS. PATIENT TIRE MAN BY NAME STAR PHONE # [phone]. ESCORTED PATIENT TO [employer] [facility] FOR SAFETY.
== END 2019-04-14 10:20 | disposition home or self-care (01) | DRG 915 ==
LOC: ER 08:13 → ICU 10:22 → MED 04-13 18:46
PROVIDERS: ADMIT Internal Medicine; ATTEND Nurse Practitioner Acute Care
DX: T78.3XXA Angioneurotic edema, initial encounter (principal); N17.0 Acute kidney failure with tubular necrosis; T46.4X5A Adverse effect of angiotensin-converting-enzyme inhibitors, initial encounter; Y92.009 Unspecified place in unspecified non-institutional (private) residence as the place of occurrence of the external cause; I12.9 Hypertensive chronic kidney disease with stage 1 through stage 4 chronic kidney disease, or unspecified chronic kidney disease; N18.9 Chronic kidney disease, unspecified; E11.22 Type 2 diabetes mellitus with diabetic chronic kidney disease; D63.8 Anemia in other chronic diseases classified elsewhere; Z95.810 Presence of automatic (implantable) cardiac defibrillator; Z79.899 Other long term (current) drug therapy; Z79.02 Long term (current) use of antithrombotics/antiplatelets; Z79.890 Hormone replacement therapy; Z79.84 Long term (current) use of oral hypoglycemic drugs; E89.0 Postprocedural hypothyroidism; Z88.1 Allergy status to other antibiotic agents; E78.5 Hyperlipidemia, unspecified; F17.200 Nicotine dependence, unspecified, uncomplicated; I25.10 Atherosclerotic heart disease of native coronary artery without angina pectoris
CPT/HCPCS: 36415; 71045-TC; 80048-TC; 80053-TC; 80061-TC; 80076-TC; 83735-TC; 84100-TC; 85025-TC; 86850-TC; 87081-TC; G0378; J1100; J1200; J2405; J2930; J3475; J3490; J7040; P9017-BL

== ENCOUNTER 2021-03-18 20:51 | Inpatient (IN) | payer MEDICARE, OTHER ==
[~2021-03-18] VITALS: Ht 172.7 cm; Wt 83.5 kg
[~2021-03-18 20:51] MED LIST changes: +AMLO-212 PO; +ATOR10TA PO; -CHOL100044 PO; -CLOP75TA15 PO; +ESOM40CA52 PO; +METH4TAB3 PO; -SACU1TAB4 PO; +TADA5TAB13 PO
--- NOTE | 2021-03-18 21:45 | NUR ---
pt bibfamily c/o non radiating cp since 2 weeks ago, but worse today. Pt aaox4 breathing evenly and unlabored. Pt skin warm, dry, and intact. pt attached to monitor and pox. blood drawn and sent to lab. Pt given blanket and call light within reach
--- NOTE | 2021-03-18 21:48 | NUR ---
placed on O2 2L via nc
[2021-03-18 22:25] LABS: BASOPHILS % (AUTO) 0.6 % (0.0-2.0); EOSINOPHILS % (AUTO) 1.8 % (0.0-6.0); HEMATOCRIT 37 % (39-51); HEMOGLOBIN 12.5 g/dL (13.5-17.5); LYMPHOCYTES # (AUTO) 1.8 K/uL (0.8-4.8); LYMPHOCYTES % (AUTO) 23.6 % (20.0-44.0); MEAN CORPUSCULAR HGB CONC 34 g/dl (31.0-36.0); MEAN CORPUSCULAR VOLUME 95 fL (80-96); MONOCYTES # (AUTO) 0.6 K/uL (0.1-1.30); MONOCYTES % (AUTO) 7.8 % (2.0-12.0); NEUTROPHILS # (AUTO) 5.2 K/uL (1.8-8.9); NEUTROPHILS % (AUTO) 66.2 % (43.0-81.0); PLATELET COUNT (AUTO) 146 K/uL (150-450); WHITE BLOOD COUNT (AUTO) 7.8 K/uL (4.3-11.0)
[2021-03-18] MEDS ORDERED: ASPIRIN EC 325 MG TABLET.DR PO ONE (22:26)
[2021-03-18] MEDS ORDERED: ASPIRIN 325 MG TABLET PO ONE (22:30)
[2021-03-18 22:37] LABS: CALCIUM, SERUM 8.3 mg/dL (8.5-10.1); CARBON DIOXIDE 24 mmol/L (21-32); CHLORIDE 111 mmol/L (98-107); CREATININE 1.4 mg/dL (0.6-1.3); GLUCOSE 157 mg/dL (74-106); POTASSIUM 4.1 mmol/L (3.5-5.1); SODIUM SERUM 143 mmol/L (136-145); UREA NITROGEN, BLOOD 26 mg/dL (7-18)
[2021-03-18 22:45] LABS: ALANINE AMINOTRANSFERASE 42 U/L (12-78); ALBUMIN 3.2 g/dL (3.4-5.0); ALKALINE PHOSPHATASE 49 U/L (46-116); ASPARTATE AMINOTRANSFERASE 26 U/L (15-37); BILIRUBIN,DIRECT 0.2 mg/dL (0.0-0.2); BILIRUBIN,TOTAL 0.6 mg/dL (0.2-1.0); TOTAL PROTEIN, SERUM 6.4 g/dL (6.4-8.2)
--- NOTE | 2021-03-18 22:45 | NUR ---
covid swab sent to lab
--- NOTE | 2021-03-18 22:46 | NUR ---
trop 3.69 per lab
[2021-03-18] MEDS ORDERED: ENOXAPARIN SODIUM 30 MG/0.3 ML DISP.SYRIN SQ ONE (23:00)
--- NOTE | 2021-03-18 23:00 | NUR ---
PAGED CARDIOLOGY; DR. COLLINS EVENT CREW TECHNICIAN, SPEAKING WITH DR CALDWELL
--- NOTE | 2021-03-18 23:07 | NUR ---
CALLED NURSING SUP FOR TELE BED
[2021-03-18] MEDS ORDERED: ONDANSETRON HCL/PF 4 MG/2 ML VIAL IVP PRN (23:30)
[2021-03-18] MEDS ORDERED: MAG HYDROX/AL HYDROX/SIMETH 30 ML UDC PO PRN (23:30)
[2021-03-18] MEDS ORDERED: MORPHINE SULFATE INJ 2 MG/ML DISP.SYRIN IV PRN (23:30)
[2021-03-18] MEDS ORDERED: Z GUARD REMEDY 2 OZ OINT TP PRN (23:30)
[2021-03-18] MEDS ORDERED: MAGNESIUM HYDROXIDE 30 ML UDC PO PRN (23:30)
[2021-03-18] MEDS ORDERED: IV NS 0.9% 1,000 ML IV PRN (23:30)
[2021-03-18] MEDS ORDERED: ACETAMINOPHEN 325 MG TABLET PO PRN (23:30)
--- NOTE | 2021-03-18 23:42 | NUR ---
ROOM 119-2, PER NURSING SUP.
--- NOTE | 2021-03-18 23:59 | NUR ---
Gave report to CAILIN morgan for cher
[2021-03-19] VITALS (21 sets, daily range): BP systolic 104–246; BP diastolic 63–149
--- NOTE | 2021-03-19 00:45 | NUR ---
RN NOTE 0010 RECEIVED PT FROM ER, ADMITTED FOR NSTEMI. PT ALERT AND ORIENTED X 4. DENIES ANY CHEST PAIN AT THIS TIME. HOOKED TO TELE MONITOR, SHOWS SR WITH OCCASIONAL VPACING. PT ON O2 AT 2L, NO SIGNS OF DISTRESS NOTED. DENIES SOB. SKIN INTACT. IV ON RFA 20G PATENT AND INTACT. FLUSHES WELL. PT ON NPO. ALL SAFETY MEASURES IN PLACE PER PROTOCOL, CALL LIGHT WITHIN REACH, BED LOCKED IN LOWEST POSITION. BP 141/70, R20 HR 75 T 98.3. O2 SAT 98 %.
[2021-03-19] MEDS ORDERED: DEXTROSE 50%-WATER 50 ML DISP.SYRIN IV PRN (01:00)
[2021-03-19 03:05] LABS: BASOPHILS # (AUTO) 0.1 K/uL (0.0-0.2); BASOPHILS % (AUTO) 0.7 % (0.0-2.0); EOSINOPHILS % (AUTO) 2.7 % (0.0-6.0); HEMATOCRIT 34 % (39-51); HEMOGLOBIN 11.7 g/dL (13.5-17.5); LYMPHOCYTES # (AUTO) 2.2 K/uL (0.8-4.8); LYMPHOCYTES % (AUTO) 30.4 % (20.0-44.0); MEAN CORPUSCULAR HGB CONC 34 g/dl (31.0-36.0); MEAN CORPUSCULAR VOLUME 94 fL (80-96); MONOCYTES # (AUTO) 0.6 K/uL (0.1-1.30); MONOCYTES % (AUTO) 8.4 % (2.0-12.0); NEUTROPHILS # (AUTO) 4.1 K/uL (1.8-8.9); NEUTROPHILS % (AUTO) 57.8 % (43.0-81.0); PLATELET COUNT (AUTO) 129 K/uL (150-450); RED BLOOD CELL COUNT(AUTO) 3.64 MIL/uL (4.5-6.0); WHITE BLOOD COUNT (AUTO) 7.1 K/uL (4.3-11.0)
[2021-03-19 03:16] LABS: D-DIMER 1.45 mg/L(FEU (0.17-0.50)
[2021-03-19 03:18] LABS: CREATININE 1.3 mg/dL (0.6-1.3); PHOSPHORUS 3.7 mg/dL (2.5-4.9); POTASSIUM 3.8 mmol/L (3.5-5.1)
[2021-03-19] MEDS ORDERED: CLOPIDOGREL BISULFATE 300 MG TABLET PO ONE (03:30)
--- NOTE | 2021-03-19 03:35 | NUR ---
RN NOTE PT TROPONIN AT 6.237. DOBBY LOOMS PEGGER DIAMOND MADE AWARE. PT DENIES ANY CHEST PAIN. CONTINUE ON TELE MONITORING.
[2021-03-19] MEDS ORDERED: CLOPIDOGREL BISULFATE 75 MG TABLET ONE (04:53)
--- NOTE | 2021-03-19 04:55 | NUR ---
RN NOTES PLAVIX GIVEN ORDERED, GAVE 4 TABS OF 75 MG.
--- NOTE | 2021-03-19 07:00 | NUR ---
RN NOTE PT REMAINS IN BED, ABLE TO MAKE NEEDS KNOWN. NO SIGNS OF DISTRESS NOTED, CONTINUE ON O2 THERAPY AT 2 LITERS. PT DENIES ANY SOB DENIES CHEST PAIN. CONTINUE ON TELE MONITORING, SR WITH HR OF 62. ON IVF OF NS 70 ML/HR, NO SIGNS OF INFILTRATION NOTED. ALL SAFETY MEASURES IN PLACE. WILL ENDORSE TO NEXT SHIFT NURSE FOR RIGOBERTO.
--- NOTE | 2021-03-19 08:02 | NUR ---
BLOOMING MILL SUPERVISOR NOTES 0748 - PATIENT FOUND GASPING FOR AIR, DIAPHORETIC,STATED NOT FEELING WELL. PATIENT REMOVED NASAL CANULA. RN PLACED IT BACK, O2 INCREASED TO 5L. PATIENT WAS SEEN BY DR. COLLINS 10-15 MINUTES AGO AND WAS DOING FINE. 0750 -RAPID RESPONSE CALLED. VS BP 246/149, O2 SAT 82% RR 28 HR 133 TEMP 98.4 BLOOD SUGAR 135 MG/DL. PATIENT PLACED ON NONREBREATHER MASK AT 15 LPM 0752 - RAPID RESPONSE TEAM ARRIVED. MALCOLM NURSING TRUCK GUARD, JOANNE ICU CHARGE NURSE, ARMANDO RESPIRATORY THERAPIST. SOON WILBERTO CHARGE NURSE, ASHLEIGH Antonio PRIMARY NURSE AND ALTAGRACIA SIMEON COLLEAGUE. 0755 - SPOKE WITH DR. COLLINS, ORDERED TO TRANSFER TO ICU. 0756 - ORDERED FOR STAT ABG. 0758 - PATIENT TRANSFERRED TO ICU RM 254. RAPID RESPONSE ENDED. 0802 - PATIENT ARRIVED AT ICU, RM 254. BEDSIDE REPORT GIVEN TO PRASAD SIMEON.
--- NOTE | 2021-03-19 08:05 | NUR ---
TRANSSFERRED TO ICU BED 254 POST CUSTOMER CONSULTING MANAGER FROM WILBERTO. PATIENT IN SEVERE RESP. DISTRESS UPON ARRIVAL, DIAPHORETIC, LUNG SOUNDS RALES THROUGHOUT. SBP >200'S. SPO2 70'S ON NRBM. STAT ABG DONE , 7.18 / / 49. / . PATIENT PLACED ON RESCUE BIPAP, ABG RESULTS RELAYED TO DR. KOTHARI WITH ORDERS TO KEEP PATIENT ON BIPAP AND REPEAT ABG POST 1 HOUR.
[2021-03-19 08:09] LABS: ABG BASE EXCESS -9.9 mmol/L; ABG OXYGEN SATURATION 75.8 % (92.0-98.5); ABG PH 7.185 (7.350-7.450); ABG PO2 49.7 mmHg (75.0-100.0); AaDO2 612.3 mmHg; COHb 0.2 % (0.5-1.5); MetHb 0.2 % (0.0-1.5); O2Hb 75.5 % (94.0-97.0); SITE, ABG Right Brachial; VENT MODE, BG NRB 100%
--- NOTE | 2021-03-19 08:20 | NUR ---
ICU/RN PT IS POST OFFICE SYSTEM ANALYST.PLACED ON BI-PAP.NEW IV INSERTED.F/C INSERTED.AM CARE PROVIDED.ABG DONE.CONTINUE MONITORING.
--- NOTE | 2021-03-19 08:20 | NUR ---
PT. IS AWAKE AND ALERT PLACED INTO BIPAP DUE TO INCREASE WORK OF BREATHING. BIPAP SETTINGS BELOW ORDER: IPAP 20 EPAP 8 RATE 14 FIO2 100% BREATH SOUNDS BILATERAL CRACKLES. LUCIANO @ BESIDE. Addendum: 03/19/21 at 0831 by ARMANDO STEVENS RT Amended: Links added.
[2021-03-19] MEDS ORDERED: Medication Not On Formulary EA (Tadalafil 5 MG) PO SCH (09:00)
[2021-03-19] MEDS: FUROSEMIDE 40 MG/4 ML VIAL IV SCH ×3 (09:03→16:24)
[2021-03-19] MEDS: ATORVASTATIN 10 MG TABLET PO SCH (09:04)
[2021-03-19] MEDS: BLOOD SUGAR DIAGNOSTIC 1 EACH STRIP IN SCH ×4 (09:04→22:00)
[2021-03-19] MEDS: ASPIRIN 81 MG TAB.CHEW PO SCH (09:04)
[2021-03-19] MEDS: AMLODIPINE BESYLATE 5 MG TABLET PO SCH (09:05)
[2021-03-19] MEDS: CARVEDILOL 12.5 MG TABLET PO SCH ×2 (09:05→21:02)
[2021-03-19] MEDS: POTASSIUM CHLORIDE 20 MEQ TAB.PRT.SR PO SCH ×3 (09:05→11:04)
[2021-03-19 09:17] LABS: BASOPHILS # (AUTO) 0.1 K/uL (0.0-0.2); BASOPHILS % (AUTO) 0.8 % (0.0-2.0); EOSINOPHILS % (AUTO) 3.1 % (0.0-6.0); HEMATOCRIT 46 % (39-51); HEMOGLOBIN 15.3 g/dL (13.5-17.5); LYMPHOCYTES # (AUTO) 2.3 K/uL (0.8-4.8); LYMPHOCYTES % (AUTO) 29.6 % (20.0-44.0); MEAN CORPUSCULAR HGB CONC 33 g/dl (31.0-36.0); MEAN CORPUSCULAR VOLUME 96 fL (80-96); MONOCYTES # (AUTO) 0.4 K/uL (0.1-1.30); MONOCYTES % (AUTO) 5.3 % (2.0-12.0); NEUTROPHILS # (AUTO) 4.8 K/uL (1.8-8.9); NEUTROPHILS % (AUTO) 61.2 % (43.0-81.0); PLATELET COUNT (AUTO) 155 K/uL (150-450); RED BLOOD CELL COUNT(AUTO) 4.78 MIL/uL (4.5-6.0); WHITE BLOOD COUNT (AUTO) 7.9 K/uL (4.3-11.0)
[2021-03-19] MEDS: PANTOPRAZOLE 40 MG TABLET.DR PO SCH (09:30)
[2021-03-19] MEDS: LEVOTHYROXINE SODIUM 88 MCG TABLET PO SCH (09:55)
--- NOTE | 2021-03-19 10:00 | NUR ---
fio2 decrease from 100% to 40% due to 100% spo2 and 199 PaO2 Addendum: 03/19/21 at 1033 by ARMANDO STEVENS RT Amended: Links added.
[2021-03-19 10:03] LABS: ABG BASE EXCESS -3.6 mmol/L; ABG PH 7.403 (7.350-7.450); COHb 0.3 % (0.5-1.5); MetHb 0.3 % (0.0-1.5); O2Hb 98.4 % (94.0-97.0); SITE, ABG Right Brachial
[2021-03-19 10:31] LABS: ALANINE AMINOTRANSFERASE 43 U/L (12-78); ALBUMIN 3.3 g/dL (3.4-5.0); ALKALINE PHOSPHATASE 59 U/L (46-116); ASPARTATE AMINOTRANSFERASE 30 U/L (15-37); BILIRUBIN,TOTAL 1.1 mg/dL (0.2-1.0); CALCIUM, SERUM 8.2 mg/dL (8.5-10.1); CARBON DIOXIDE 20 mmol/L (21-32); CHLORIDE 109 mmol/L (98-107); CREATININE 1.5 mg/dL (0.6-1.3); GLUCOSE 275 mg/dL (74-106); MAGNESIUM 1.9 mg/dL (1.8-2.4); PHOSPHORUS 5.2 mg/dL (2.5-4.9); POTASSIUM 3.6 mmol/L (3.5-5.1); SODIUM SERUM 144 mmol/L (136-145); TOTAL PROTEIN, SERUM 6.8 g/dL (6.4-8.2); UREA NITROGEN, BLOOD 22 mg/dL (7-18)
[2021-03-19] MEDS: ENOXAPARIN SODIUM 80 MG/0.8 ML DISP.SYRIN SQ SCH ×2 (11:15→21:03)
[2021-03-19 15:03] LABS: CALCIUM, SERUM 8.3 mg/dL (8.5-10.1); CARBON DIOXIDE 25 mmol/L (21-32); CHLORIDE 111 mmol/L (98-107); CREATININE 1.5 mg/dL (0.6-1.3); GLUCOSE 118 mg/dL (74-106); POTASSIUM 3.8 mmol/L (3.5-5.1); SODIUM SERUM 146 mmol/L (136-145); UREA NITROGEN, BLOOD 24 mg/dL (7-18)
--- NOTE | 2021-03-19 18:05 | NUR ---
ICU/RN ALL MEDS ARE GIVEN ORDERED.PM CARE PROVIDED. PLACED ON 2L N/C .PT EATS 50% FROM HIS DINNER TRAY. V/S STABLE.AFEBRILE.NO PAIN REPORTED AT THIS TIME.F/C DRAINED WITH CLEAR YELLOW URINE.CONTINUE MONITORING.
--- NOTE | 2021-03-19 19:27 | NUR ---
RCVD PT ON 3L NC. PLACED PT ON BIPAP 20/8, RATE 14, FIO2 40% PER MD'S ORDER. BIPAP PLUGGED INTO RED OUTLET, ALARMS ON AND AUDIBLE. NO RESPIRATORY DISTRESS NOTED AT THIS TIME. WILL CONTINUE TO MONITOR T/O SHIFT.
[2021-03-20] VITALS (13 sets, daily range): BP systolic 113–147; BP diastolic 56–91
[2021-03-20] MEDS: INSULIN REGULAR, HUMAN 100 UNIT/ML 3 ML VIAL SQ PRN ×2 (00:24→11:48)
--- NOTE | 2021-03-20 02:04 | NUR ---
patient awake alert on bi-pap 06/05 resp 14 fi02 40% sat 98%. patient sinus rythem on monitor blood sugar 113 no insulin given patient has a pace maker upper left side patient has f/c draining well.
[2021-03-20 05:01] LABS: BASOPHILS % (AUTO) 0.5 % (0.0-2.0); EOSINOPHILS % (AUTO) 2.3 % (0.0-6.0); HEMATOCRIT 38 % (39-51); HEMOGLOBIN 12.6 g/dL (13.5-17.5); LYMPHOCYTES # (AUTO) 2.4 K/uL (0.8-4.8); LYMPHOCYTES % (AUTO) 30.3 % (20.0-44.0); MEAN CORPUSCULAR HGB CONC 34 g/dl (31.0-36.0); MEAN CORPUSCULAR VOLUME 95 fL (80-96); MONOCYTES # (AUTO) 0.7 K/uL (0.1-1.30); MONOCYTES % (AUTO) 8.5 % (2.0-12.0); NEUTROPHILS # (AUTO) 4.6 K/uL (1.8-8.9); NEUTROPHILS % (AUTO) 58.4 % (43.0-81.0); PLATELET COUNT (AUTO) 136 K/uL (150-450); RED BLOOD CELL COUNT(AUTO) 3.95 MIL/uL (4.5-6.0); WHITE BLOOD COUNT (AUTO) 7.9 K/uL (4.3-11.0)
[2021-03-20 05:25] LABS: ALANINE AMINOTRANSFERASE 31 U/L (12-78); ALKALINE PHOSPHATASE 48 U/L (46-116); ASPARTATE AMINOTRANSFERASE 17 U/L (15-37); BILIRUBIN,TOTAL 1.7 mg/dL (0.2-1.0); CALCIUM, SERUM 8.3 mg/dL (8.5-10.1); CARBON DIOXIDE 29 mmol/L (21-32); CHLORIDE 110 mmol/L (98-107); CREATININE 1.8 mg/dL (0.6-1.3); GLUCOSE 106 mg/dL (74-106); MAGNESIUM 1.8 mg/dL (1.8-2.4); PHOSPHORUS 2.9 mg/dL (2.5-4.9); POTASSIUM 3.8 mmol/L (3.5-5.1); SODIUM SERUM 145 mmol/L (136-145); TOTAL PROTEIN, SERUM 5.9 g/dL (6.4-8.2)
[2021-03-20 05:37] LABS: UREA NITROGEN, BLOOD 26 mg/dL (7-18)
--- NOTE | 2021-03-20 06:00 | NUR ---
family here want to TALK TO DR. COLLINS ABOUT PATIENT GOING TO [facility] TODAY.THE SON WAS HERE EARLIER THIS NITE.
[2021-03-20] MEDS: BLOOD SUGAR DIAGNOSTIC 1 EACH STRIP IN SCH ×2 (06:22→11:50)
--- NOTE | 2021-03-20 06:23 | NUR ---
check blood sugar this a.m 108 no insulin given
--- NOTE | 2021-03-20 07:20 | NUR ---
CLINICAL REVIEWER NOTES RECEIVED PATIENT IN BED RESTING COMFORTABLY IN MODERATE HIGH BACK REST, A/O X4, ON BIPAP 30% FIO2 SATING 99%, NO SIGNS OF DISTRESS NOTED AT THIS TIME. IV ACCESS ON RAC #18 AND RFA #20, INTACT AND PATENT. SR ON THE MONITOR WITH HR OF 63. MERLOS CATHETER INTACT AND DRAINING CLEAR YELLOW URINE, SAFETY MEASURES MAINTAINED, WILL CONTINUE TO MONITOR.
[2021-03-20] MEDS: ATORVASTATIN 10 MG TABLET PO SCH (08:07)
[2021-03-20] MEDS: ASPIRIN 81 MG TAB.CHEW PO SCH (08:07)
[2021-03-20] MEDS: LEVOTHYROXINE SODIUM 88 MCG TABLET PO SCH (08:07)
[2021-03-20] MEDS: AMLODIPINE BESYLATE 5 MG TABLET PO SCH (08:08)
[2021-03-20] MEDS: PANTOPRAZOLE 40 MG TABLET.DR PO SCH (08:08)
[2021-03-20] MEDS: CARVEDILOL 12.5 MG TABLET PO SCH (08:08)
--- NOTE | 2021-03-20 08:08 | NUR ---
RT PATIENT REC'D OFF BIPAP ON 3L N/C
[2021-03-20] MEDS: ENOXAPARIN SODIUM 80 MG/0.8 ML DISP.SYRIN SQ SCH (08:09)
--- NOTE | 2021-03-20 08:30 | NUR ---
COMPUTER LABORATORY TECHNICIAN NOTES PATIENT REMOVED BIPAP, CURRENTLY ON OXYGEN VIA NC @5LPM SATING 98%, NOT IN ANY SIGNS OF DISTRESS.
--- NOTE | 2021-03-20 09:00 | NUR ---
WIND TURBINE SERVICE TECHNICIAN NOTES SPOKE TO SON REGARDING TRANSFER AND UPDATES REGARDING THE STATUS GIVEN.
[2021-03-20] MEDS ORDERED: FUROSEMIDE 40 MG/4 ML VIAL IV SCH (09:30)
--- NOTE | 2021-03-20 09:30 | NUR ---
SUPERVISOR FERTILIZER NOTES SPOKE TO REYES BLACKWELL REGARDING STATUS, SON AT BEDSIDE, UPDATES GIVEN.
--- NOTE | 2021-03-20 10:30 | NUR ---
MUSCULOSKELETAL PHYSICIAN NOTES SEEN AND EXAMINED BY CARMEL SIMMONS, NNO AT THIS TIME, WILL CONTINUE TO MONITOR.
--- NOTE | 2021-03-20 12:51 | NUR ---
DISCHARGE NOTES PATIENT PICKED UP BY AMBULANCE IN STABLE CONDITION, NO SIGNS OF DISTRESS NOTED. SKIN IS INTACT, ALL BELONGINGS WITH FAMILY, SIGNED DC PAPERS, CD PROVIDED TO PATIENT, REPORT GIVEN TO CAILIN ZAZUETA AT [facility]. PATIENT IS GOING TO RM 4302, ACCEPTING PHYSICIAN DR. BEATTY. LEFT UNIT VIA GURNEY IN NO SIGNS OF DISTRESS AND VSS. ACCOMPANIED BY 2 AMBULANCE STAFF AND FAMILY.
== END 2021-03-20 12:50 | disposition short-term general hospital (02) | DRG 280 ==
LOC: ER 20:52 → TELE1 03-19 00:03 → ICU 03-19 08:02
PROVIDERS: ADMIT Nurse Practitioner Acute Care; ATTEND Nurse Practitioner Acute Care
PROC: 5A09357 Assistance with Respiratory Ventilation, Less than 24 Consecutive Hours, Continuous Positive Airway Pressure (ICD-10-PCS; principal; 2021-03-19)
DX: I21.4 Non-ST elevation (NSTEMI) myocardial infarction (principal); J96.01 Acute respiratory failure with hypoxia; I50.21 Acute systolic (congestive) heart failure; J96.02 Acute respiratory failure with hypercapnia; N17.9 Acute kidney failure, unspecified; E87.2 Acidosis; J81.1 Chronic pulmonary edema; I11.0 Hypertensive heart disease with heart failure; I25.10 Atherosclerotic heart disease of native coronary artery without angina pectoris; F17.210 Nicotine dependence, cigarettes, uncomplicated; Z20.822 Contact with and (suspected) exposure to COVID-19; E89.0 Postprocedural hypothyroidism; E78.5 Hyperlipidemia, unspecified; E11.9 Type 2 diabetes mellitus without complications; Z95.810 Presence of automatic (implantable) cardiac defibrillator; Z79.84 Long term (current) use of oral hypoglycemic drugs; Z71.6 Tobacco abuse counseling
CPT/HCPCS: 36415; 36600; 71045-TC; 80048-TC; 80053-TC; 80061-TC; 80076-TC; 82803-TC; 82962-TC; 83735-TC; 84100-TC; 84443-TC; 84484-TC; 85025-TC; 85378-TC; 85730-TC; 87081-TC; 93307-TC; 94799-TC; C9803; G0378; J1650; J1815; J1940; J2270; J7030

== ENCOUNTER 2022-03-19 01:05 | Inpatient (IN) | payer MEDICARE, OTHER ==
[~2022-03-19] VITALS: Ht 172.7 cm; Wt 77.6 kg
--- NOTE | 2022-03-19 01:30 | NUR ---
TO ER BED 8. BIBSELF C/O SOB AND COUGH WITH PHLEGM X4 DAYS DENIES AND FEVERS OR CHILLS. PT AAOX4. AMBULATORY WITH STEADY GAIT. BREATHING IS EVEN AND NONLABORED. LUNGS ARE CLEAR BILATERALLY. CONNECTED TO MONITOR. AWAITING MD ALCANTAR
--- NOTE | 2022-03-19 01:32 | NUR ---
COVID ANTIGEN SWAB COLLECTED AND SENT TO LAB
[2022-03-19 02:16] LABS: BASOPHILS % (AUTO) 0.4 % (0.0-2.0); EOSINOPHILS % (AUTO) 1.9 % (0.0-6.0); HEMATOCRIT 41 % (39-51); HEMOGLOBIN 13.6 g/dL (13.5-17.5); LYMPHOCYTES % (AUTO) 19.7 % (20.0-44.0); MEAN CORPUSCULAR HGB CONC 34 g/dl (31.0-36.0); MEAN CORPUSCULAR VOLUME 93 fL (80-96); MONOCYTES # (AUTO) 0.8 K/uL (0.1-1.30); MONOCYTES % (AUTO) 7.9 % (2.0-12.0); NEUTROPHILS # (AUTO) 7.1 K/uL (1.8-8.9); NEUTROPHILS % (AUTO) 70.1 % (43.0-81.0); PLATELET COUNT (AUTO) 146 K/uL (150-450); RED BLOOD CELL COUNT(AUTO) 4.39 MIL/uL (4.5-6.0); WHITE BLOOD COUNT (AUTO) 10.1 K/uL (4.3-11.0)
[2022-03-19 02:32] LABS: CALCIUM, SERUM 9.3 mg/dL (8.5-10.1); CARBON DIOXIDE 33 mmol/L (21-32); CHLORIDE 105 mmol/L (98-107); CREATININE 1.6 mg/dL (0.6-1.3); GLUCOSE 150 mg/dL (74-106); POTASSIUM 3.7 mmol/L (3.5-5.1); SODIUM SERUM 144 mmol/L (136-145); UREA NITROGEN, BLOOD 32 mg/dL (7-18)
--- NOTE | 2022-03-19 02:45 | NUR ---
CRITICAL : TROPONIN 240, MD MADE AWARE
--- NOTE | 2022-03-19 02:57 | NUR ---
DR. COLLINS ON THE PHONE WITH DR. PITTMAN FOR CONSULT
[2022-03-19] MEDS ORDERED: methylPREDNISolone SOD SUCC 125 MG/2ML VIAL ONE (02:58)
[2022-03-19] MEDS ORDERED: methylPREDNISolone SOD SUCC 125 MG/2ML VIAL IV ONE (03:00)
[2022-03-19] MEDS ORDERED: ALBUTEROL FS 2.5 MG/3 ML VIAL.NEB NEB ONE (03:00)
[2022-03-19] MEDS ORDERED: IPRATROPIUM NEB FS 0.5 MG/2.5 ML AMPUL.NEB NEB ONE (03:00)
[2022-03-19] MEDS ORDERED: ALBUTEROL FS 2.5 MG/3 ML VIAL.NEB ONE (03:04)
[2022-03-19] MEDS ORDERED: IPRATROPIUM NEB FS 0.5 MG/2.5 ML AMPUL.NEB ONE (03:04)
--- NOTE | 2022-03-19 04:23 | NUR ---
TROPONIN: 229
[2022-03-19] MEDS ORDERED: ACETAMINOPHEN 325 MG TABLET PO PRN (04:30)
[2022-03-19] MEDS ORDERED: FUROSEMIDE 40 MG/4 ML VIAL IV ONE (04:30)
[2022-03-19] MEDS ORDERED: MAGNESIUM HYDROXIDE 30 ML UDC PO PRN (04:30)
[2022-03-19] MEDS ORDERED: ONDANSETRON HCL/PF 4 MG/2 ML VIAL IVP PRN (04:30)
[2022-03-19] MEDS ORDERED: MAG HYDROX/AL HYDROX/SIMETH 30 ML UDC PO PRN (04:30)
[2022-03-19] MEDS ORDERED: Z GUARD REMEDY 4 OZ OINT TP PRN (04:30)
[2022-03-19] MEDS ORDERED: MORPHINE SULFATE INJ 2 MG/ML DISP.SYRIN IV PRN (04:30)
[2022-03-19] MEDS ORDERED: HYDROCODONE/APAP 5/325MG TABLET PO PRN (04:30)
[2022-03-19] MEDS ORDERED: FUROSEMIDE 40 MG/4 ML VIAL ONE (04:46)
--- NOTE | 2022-03-19 07:36 | NUR ---
REPORT GIVEN TO DEEPALI SIMEON FOR RIGOBERTO
--- NOTE | 2022-03-19 08:12 | NUR ---
THE PATIENT IS TAKEN TO ROOM 328 IN STABLE CONDITION AND PER ACLS POLICY.
[2022-03-19] MEDS: ASPIRIN 81 MG TAB.CHEW PO SCH (09:28)
[2022-03-19] MEDS: ENOXAPARIN SODIUM 40 MG/0.4 ML DISP.SYRIN SQ SCH (09:29)
[2022-03-19] MEDS: PANTOPRAZOLE 40 MG TABLET.DR PO SCH (09:29)
[2022-03-19] MEDS ORDERED: DAPA5TAB PO (10:11)
[2022-03-19] MEDS ORDERED: ASPI-1169 PO (10:11)
[2022-03-19] MEDS ORDERED: ALIR75PE SQ (10:11)
[2022-03-19] MEDS ORDERED: SACU1TAB4 PO (10:11)
[2022-03-19] MEDS ORDERED: SITA1TAB6 PO (10:11)
[2022-03-19] MEDS ORDERED: CARV6.252 PO (10:11)
[2022-03-19] MEDS ORDERED: LEVO137T2 PO (10:11)
[2022-03-19 12:00] VITALS: BP 131/77
[2022-03-19] MEDS ORDERED: DEXTROSE 50%-WATER 50 ML DISP.SYRIN IV PRN (12:30)
[2022-03-19] MEDS: ALBUTEROL FS 2.5 MG/3 ML VIAL.NEB NEB PRN ×2 (13:01→20:11)
[2022-03-19] MEDS: IPRATROPIUM NEB FS 0.5 MG/2.5 ML AMPUL.NEB NEB PRN ×2 (13:01→20:11)
[2022-03-19] MEDS: methylPREDNISolone SOD SUCC 40 MG/ML VIAL IV SCH ×2 (14:10→20:26)
[2022-03-19 16:00] VITALS: BP 158/83
[2022-03-19] MEDS: VALSARTAN PO SCH (17:00)
[2022-03-19] MEDS: SACUBITRIL PO SCH (17:00)
[2022-03-19] MEDS: BLOOD SUGAR DIAGNOSTIC 1 EACH STRIP VI SCH ×2 (18:21→22:03)
[2022-03-19] MEDS: CARVEDILOL 6.25 MG TABLET PO SCH (18:22)
--- NOTE | 2022-03-19 18:23 | NUR ---
BLOODSUGAR IS 225, PATIENT REFUSED 6 UNITS INSULIN COVERAGE SAYING THAT HE ALREADY FINISHED A BIG MEAL. WILL CONTINUE TO MONITOR PATIENT.
[2022-03-19 20:00] VITALS: BP 155/80
[2022-03-19] MEDS: *INSULIN REGULAR(HUMULIN R)HUM 100 UNIT/ML VIAL SQ PRN (22:04)
--- NOTE | 2022-03-19 22:27 | NUR ---
RN OPENING NOTE PT A/O X4 ABLE TO MAKE NEEDS NOW IN NO PAIN OR DISCOMFORT AT THIS TIME DID NOTICE PT WAS HAVING COUGHING AND A HARD TIME BREATHING PRN BREATHING TREATMENT AND PLACED ON O2 2L ON NASAL CANNULA SATURATING AT 97% SCHEDULED SOLU MEDROL ALSO GIVEN AND TOLERATED WELL. PT COUGH HAS STOPPED AFTER INTERVENTIONS. IV ACCESS NOTE DON THE LAC #20G TOLERATING WELL. PT REFUSED INSULIN BLOOD SUGAR WAS 159 RISK AND BENEFITS EXPLAINED X3. BILATERAL SIDE RAILS UP FOR SAFETY, CALL LIGHT WITHIN REACH WILL CONTINUE TO MONITOR.
[2022-03-19] MEDS: GUAIFENESIN/D-METHORPHAN HB 5 ML UDC PO PRN (23:12)
[2022-03-20] VITALS: BP 151/78
[2022-03-20] MEDS: GUAIFENESIN/D-METHORPHAN HB 5 ML UDC PO PRN ×2 (03:14→08:42)
--- NOTE | 2022-03-20 03:18 | NUR ---
MS RN NOTES PRN COUGH SYRUP GIVEN FOR COUGH TOLERATED WELL.
[2022-03-20 04:00] VITALS: BP 142/67
[2022-03-20] MEDS: methylPREDNISolone SOD SUCC 40 MG/ML VIAL IV SCH ×3 (05:26→22:07)
--- NOTE | 2022-03-20 06:29 | NUR ---
RN CLOSING NOTE PT A/O X4 ABLE TO MAKE NEEDS NOW IN NO PAIN OR DISCOMFORT AT THIS TIME. ON O2 2L ON NASAL CANNULA SATURATING AT 97% PT STILL HAS A COUGH BUT COUGH HAS IMPROVED SUBSTANTIALLY AFTER INTERVENTIONS. IV ACCESS NOTED ON THE LAC #20G TOLERATING WELL. PT REFUSED INSULIN BLOOD SUGAR BOTH PM AND AM RISK AND BENEFITS EXPLAINED X3. BILATERAL SIDE RAILS UP FOR SAFETY, CALL LIGHT WITHIN REACH WILL ENDORSE CARE TO DAY SHIFT NURSE.
[2022-03-20] MEDS: BLOOD SUGAR DIAGNOSTIC 1 EACH STRIP VI SCH ×4 (06:34→22:07)
[2022-03-20] MEDS: *INSULIN REGULAR(HUMULIN R)HUM 100 UNIT/ML VIAL SQ PRN ×2 (06:35→22:19)
[2022-03-20 06:56] LABS: HEMATOCRIT 37 % (39-51); HEMOGLOBIN 12.5 g/dL (13.5-17.5); LYMPHOCYTES # (AUTO) 1.1 K/uL (0.8-4.8); LYMPHOCYTES % (AUTO) 8.2 % (20.0-44.0); MEAN CORPUSCULAR HGB CONC 34 g/dl (31.0-36.0); MEAN CORPUSCULAR VOLUME 92 fL (80-96); MONOCYTES # (AUTO) 0.8 K/uL (0.1-1.30); MONOCYTES % (AUTO) 5.8 % (2.0-12.0); NEUTROPHILS # (AUTO) 11.9 K/uL (1.8-8.9); PLATELET COUNT (AUTO) 123 K/uL (150-450); RED BLOOD CELL COUNT(AUTO) 4.03 MIL/uL (4.5-6.0); WHITE BLOOD COUNT (AUTO) 13.9 K/uL (4.3-11.0)
--- NOTE | 2022-03-20 07:25 | NUR ---
RN OPENING NOTES RECEIVED PATIENT IN BED AWAKE, ALERT AND ORIENTED X4, VERBALLY RESPONSIVE, NO SIGNS OF ACUTE DISTRESS NOTED. ON O2 @ 2LPM VIA N/C, BREATHING EVEN AND UNLABORED, NO SOB NOTED. DENIES ANY PAIN AT THIS TIME. NOTED WITH PERIPHERAL ACCESS ON LEFT ANTECUBITAL AREA #20G, INTACT AND PATENT, SALINE LOCKED. ON TELE MONITOR, NOT IN CARDIAC DISTRESS. SAFETY MEASURE IN PLACE. BED IN LOWEST AND LOCKED POSITION, SIDE RAILS UP X2, CALL LIGHT PLACED WITHIN EASY REACH. WILL CONTINUE TO MONITOR PATIENT.
[2022-03-20 07:43] LABS: CALCIUM, SERUM 8.8 mg/dL (8.5-10.1); CARBON DIOXIDE 27 mmol/L (21-32); CHLORIDE 105 mmol/L (98-107); CREATININE 1.5 mg/dL (0.6-1.3); GLUCOSE 148 mg/dL (74-106); MAGNESIUM 2.4 mg/dL (1.8-2.4); PHOSPHORUS 3.1 mg/dL (2.5-4.9); SODIUM SERUM 142 mmol/L (136-145); UREA NITROGEN, BLOOD 36 mg/dL (7-18)
[2022-03-20 08:00] VITALS: BP 143/83
[2022-03-20 08:01] LABS: THYROID STIMULATING HORMONE 0.117 uIU/mL (0.358-3.74)
[2022-03-20] MEDS: LEVOTHYROXINE SODIUM 137 MCG TABLET PO SCH (08:17)
[2022-03-20] MEDS: PANTOPRAZOLE 40 MG TABLET.DR PO SCH (08:17)
[2022-03-20] MEDS: ENOXAPARIN SODIUM 40 MG/0.4 ML DISP.SYRIN SQ SCH (08:37)
[2022-03-20] MEDS: ATORVASTATIN 10 MG TABLET PO SCH (08:38)
[2022-03-20] MEDS: ASPIRIN 81 MG TAB.CHEW PO SCH (08:38)
[2022-03-20] MEDS: CARVEDILOL 6.25 MG TABLET PO SCH ×2 (08:38→16:48)
[2022-03-20] MEDS: SACUBITRIL PO SCH ×2 (09:00→17:58)
[2022-03-20] MEDS: VALSARTAN PO SCH ×2 (09:00→17:58)
[2022-03-20] MEDS: INSULIN REGULAR, HUMAN 100 UNIT/ML 3 ML VIAL SQ PRN ×2 (11:32→16:49)
[2022-03-20 12:00] VITALS: BP 132/67
[2022-03-20] MEDS: IPRATROPIUM NEB FS 0.5 MG/2.5 ML AMPUL.NEB NEB PRN ×2 (14:35→19:38)
[2022-03-20] MEDS: ALBUTEROL FS 2.5 MG/3 ML VIAL.NEB NEB PRN ×2 (14:35→19:38)
[2022-03-20 16:00] VITALS: BP 148/79
--- NOTE | 2022-03-20 18:55 | NUR ---
RN CLOSING NOTES PATIENT IN BED, AWAKE, A/O X4, VERBALLY RESPONSIVE. NO SIGNS OF ACUTE DISTRESS NOTED. REMAINS ON O2 @ 2LPM VIA N/C, NO SOB NOTED, BREATHING EVEN AND UNLABORED. IV ACCESS ON LEFT AC #20G, INTACT AND PATENT, SALINE LOCKED. ON TELE MONITOR CURRENTLY SHOWING SINUS RHYTHM WITH BBB, HR @79 . ALL DUE MEDS GIVEN. SAFETY MEASURE MAINTAINED. BED IN LOWEST AND LOCKED POSITION, SIDE RAILS UP X2, CALL LIGHT PLACED WITHIN EASY REACH. WILL ENDORSE TO NEXT SHIFT FOR RIGOBERTO.
--- NOTE | 2022-03-20 19:31 | NUR ---
RN OPENING NOTE PATIENT WALKING AROUND THE ROOM, A/O X 4 ABLE TO MAKE NEEDS KNOWN. AMBULATORY AND STEADY. PATIENT IS CURRENTLY ON RA, 99% 02 SAT, HAS 2LPM VIA NC PRN. PATIENT NOT NOTED TO HAVE SOB AND DOESN'T REPORT DYSPNEA. OBSERVED TO HAVE NON PRODUCTIVE COUGH. PATIENT'S TELE MONITOR READS SR 91 WITH BBB. PATIENT HAS A LAC 20 G PATENT AND INTACT, FLUSHING WELL. SAFETY MEASURES IN PLACE: BED LOCKED AND IN LOWEST POSITION, CALL LIGHT WITHIN REACH, SIDE RAILS UP. WILL MONITOR PATIENT CLOSELY.
[2022-03-20 20:00] VITALS: BP 135/79
--- NOTE | 2022-03-20 22:15 | NUR ---
RN NOTE BS 177 MG/DL, PATIENT REFUSED INSULIN COVERAGE BS LEVEL IS "NOT TOO MUCH". EDUCATION GIVEN ON MED, STILL INSISTS NOT TO HAVE INSULIN ADMINISTERED AND STATES "MAYBE IN THE MORNING". WILL MONITOR FOR HYPO/HYPERGLYCEMIA
[2022-03-21] VITALS: BP 134/81
[2022-03-21 01:49] VITALS: BP 103/53
[2022-03-21 04:00] VITALS: BP_SYST 131; BP_SYST 93; BP_DIAS 56; BP_DIAS 63
[2022-03-21] MEDS: methylPREDNISolone SOD SUCC 40 MG/ML VIAL IV SCH ×3 (05:05→16:30)
[2022-03-21] MEDS: IPRATROPIUM NEB FS 0.5 MG/2.5 ML AMPUL.NEB NEB PRN ×3 (06:05→15:31)
[2022-03-21] MEDS: ALBUTEROL FS 2.5 MG/3 ML VIAL.NEB NEB PRN ×3 (06:05→15:31)
[2022-03-21] MEDS: INSULIN REGULAR, HUMAN 100 UNIT/ML 3 ML VIAL SQ PRN ×3 (06:11→16:42)
[2022-03-21 06:20] LABS: BASOPHILS % (AUTO) 0.1 % (0.0-2.0); HEMATOCRIT 36 % (39-51); HEMOGLOBIN 12.1 g/dL (13.5-17.5); LYMPHOCYTES % (AUTO) 7.2 % (20.0-44.0); MEAN CORPUSCULAR HGB CONC 34 g/dl (31.0-36.0); MEAN CORPUSCULAR VOLUME 92 fL (80-96); MONOCYTES # (AUTO) 0.5 K/uL (0.1-1.30); MONOCYTES % (AUTO) 3.8 % (2.0-12.0); NEUTROPHILS # (AUTO) 12.6 K/uL (1.8-8.9); NEUTROPHILS % (AUTO) 88.9 % (43.0-81.0); PLATELET COUNT (AUTO) 123 K/uL (150-450); RED BLOOD CELL COUNT(AUTO) 3.91 MIL/uL (4.5-6.0); WHITE BLOOD COUNT (AUTO) 14.2 K/uL (4.3-11.0)
[2022-03-21] MEDS: PANTOPRAZOLE 40 MG TABLET.DR PO SCH (07:30)
[2022-03-21] MEDS: LEVOTHYROXINE SODIUM 137 MCG TABLET PO SCH (07:30)
--- NOTE | 2022-03-21 07:30 | NUR ---
FLIGHT SOFTWARE TEST ENGINEER OPENING NOTES RECEIVED PATIENT IN BED AWAKE, ALERT AND ORIENTED X4, VERBALLY RESPONSIVE TO CROATIAN AND UZBEK LANGUAGES. NO DISTRESS NOTED. ON O2 @ 2LPM VIA NASAL CANNULA AT 98%. BREATHING EVEN AND UNLABORED, NO SOB NOTED. NO PAIN NOTED. IV ACCESS ON THE LEFT ANTECUBITAL #20G, INTACT AND PATENT, SALINE LOCKED. ON TELE MONITOR READING SR 90 WITH BBB. NOT IN CARDIAC DISTRESS. SAFETY MEASURE IN PLACE. BED IN LOWEST AND LOCKED POSITION, SIDE RAILS UP X2, CALL LIGHT AND TABLE PLACED WITHIN EASY REACH. WILL CONTINUE TO MONITOR PATIENT.
[2022-03-21] MEDS: BLOOD SUGAR DIAGNOSTIC 1 EACH STRIP VI SCH ×4 (07:31→22:35)
[2022-03-21] MEDS ORDERED: VALSARTAN 40 MG TABLET PO SCH (09:00)
[2022-03-21] MEDS: ATORVASTATIN 10 MG TABLET PO SCH (09:28)
[2022-03-21] MEDS: CARVEDILOL 6.25 MG TABLET PO SCH ×2 (09:28→16:14)
[2022-03-21] MEDS: SPIRONOLACTONE 25 MG TABLET PO SCH (09:29)
[2022-03-21] MEDS: ASPIRIN 81 MG TAB.CHEW PO SCH (09:29)
[2022-03-21] MEDS: ENOXAPARIN SODIUM 40 MG/0.4 ML DISP.SYRIN SQ SCH (09:30)
[2022-03-21 09:37] LABS: CALCIUM, SERUM 8.8 mg/dL (8.5-10.1); CREATININE 1.3 mg/dL (0.6-1.3); POTASSIUM 4.1 mmol/L (3.5-5.1)
[2022-03-21] MEDS: ENTRESTO PO SCH ×2 (09:59→16:13)
[2022-03-21 15:56] LABS: BILIRUBIN,URINE NEGATIVE (NEGATIVE); COLOR,URINE YELLOW (YELLOW); LEUKOCYTE ESTERASE ,URINE NEGATIVE (NEGATIVE); NITRITE, URINE NEGATIVE (NEGATIVE); PROTEIN,URINE 100 mg/dl (NEGATIVE); UGLUCOSE 250 MG/DL mg/dL (NEGATIVE); UROBILINOGEN,URINE 0.2 EU/dL (0.2)
[2022-03-21 16:18] LABS: CREATININE, URINE 110.7 MG/DL (30.0-125.0)
[2022-03-21 16:22] LABS: RBC,URINE 0-2 /HPF (0-2); WBC,URINE 0-2 /HPF (0-3)
[2022-03-21 16:23] LABS: BACTERIA,URINE None seen /HPF (None Seen); SQUAMOUS EPITHELIAL CELL,UR None Seen /HPF (None Seen)
--- NOTE | 2022-03-21 18:47 | NUR ---
SPRINKLER TRUCK DRIVER CLOSING NOTES PATIENT IN BED AWAKE, ALERT AND ORIENTED X4, VERBALLY RESPONSIVE TO SWAZI AND URDU LANGUAGES. NO DISTRESS NOTED. ON O2 @ 2LPM VIA NASAL CANNULA AT 98%. BREATHING EVEN AND UNLABORED, NO SOB NOTED. NO PAIN NOTED. IV ACCESS ON THE LEFT ANTECUBITAL #20G, INTACT AND PATENT, SALINE LOCKED. ALL DUE MEDS GIVEN ORDERED.ON TELE MONITOR READING SR . NOT IN CARDIAC DISTRESS. SAFETY MEASURE IN PLACE. BED IN LOWEST AND LOCKED POSITION, SIDE RAILS UP X2, CALL LIGHT AND TABLE PLACED WITHIN EASY REACH. WILL ENDORSE FOR RIGOBERTO.
--- NOTE | 2022-03-21 19:30 | NUR ---
RN OPENING NOTE PATIENT IN BED AWAKE TALKING ON THE PHONE, A/O X 4 ABLE TO MAKE NEEDS KNOWN. PATIENT IS CURRENTLY ON RA, 94% 02 SAT, HAS 2LPM VIA NC PRN. PATIENT NOT NOTED TO HAVE SOB AND DOESN'T REPORT DYSPNEA. OBSERVED TO HAVE NON PRODUCTIVE COUGH. PATIENT'S TELE MONITOR READS SR 90 WITH BBB. PATIENT HAS A LAC 20 G PATENT AND INTACT, FLUSHING WELL. SAFETY MEASURES IN PLACE: BED LOCKED AND IN LOWEST POSITION, CALL LIGHT WITHIN REACH, SIDE RAILS UP. WILL MONITOR PATIENT CLOSELY.
[2022-03-21 20:00] VITALS: BP 146/80
[2022-03-21] MEDS: ALBUTEROL FS 2.5 MG/3 ML VIAL.NEB NEB SCH (20:20)
[2022-03-21] MEDS: *INSULIN REGULAR(HUMULIN R)HUM 100 UNIT/ML VIAL SQ PRN (22:40)
--- NOTE | 2022-03-21 22:40 | NUR ---
RN NOTE BS 167 MG/DL, PATIENT GIVEN 3 UNITS OF REGULAR INSULIN FOR COVERAGE. PATIENT PROVIDED SNACKS. WILL MONITOR PATIENT FOR HYPO/HYPERGLYCEMIA.
[2022-03-22] VITALS: BP 149/82
[2022-03-22] MEDS: ALBUTEROL FS 2.5 MG/3 ML VIAL.NEB NEB SCH ×3 (01:13→12:46)
[2022-03-22 04:00] VITALS: BP 113/56
[2022-03-22] MEDS: BLOOD SUGAR DIAGNOSTIC 1 EACH STRIP VI SCH ×2 (06:30→11:44)
[2022-03-22] MEDS: INSULIN REGULAR, HUMAN 100 UNIT/ML 3 ML VIAL SQ PRN ×2 (06:31→11:44)
--- NOTE | 2022-03-22 07:03 | NUR ---
RN OPENING NOTE PATIENT IN BED, AWAKE, A/O X 4 ABLE TO MAKE NEEDS KNOWN. PATIENT IS CURRENTLY ON RA, 98% 02 SAT, HAS 2LPM VIA NC PRN. PATIENT NOT NOTED TO HAVE SOB AND DOESN'T REPORT DYSPNEA. COUGH PRESENT. PATIENT'S TELE MONITOR READS SR 90 WITH BBB. PATIENT HAS A LAC 20 G PATENT AND INTACT, FLUSHING WELL. BS 157 MG/DL, GIVEN 2 UNITS OF INSULIN COVERAGE, SNACKS PROVIDED. SAFETY MEASURES IN PLACE: BED LOCKED AND IN LOWEST POSITION, CALL LIGHT WITHIN REACH, SIDE RAILS UP. ALL NEEDS MET AND ATTENDED. ALL ORDERS CARRIED OUT. WILL ENDORSE TO DAY SHIFT NURSE FOR RIGOBERTO. Addendum: 03/22/22 at 0705 by MUMTAZ GROVE RN CLOSING NOTE
--- NOTE | 2022-03-22 07:30 | NUR ---
RN MS NOTES PT AWAKE, ALERT AND ORIENTED, EATING BREAKFAST, NO COMPLAINT OF PAIN, RESPIRATIONS NORMAL, CALL LIGHT WITHIN REACH, ALL NEEDS ATTENDED.
[2022-03-22] MEDS ORDERED: CARVEDILOL 6.25 MG TABLET PO SCH (09:00)
[2022-03-22] MEDS: ASPIRIN 81 MG TAB.CHEW PO SCH (09:56)
[2022-03-22] MEDS: ATORVASTATIN 10 MG TABLET PO SCH (09:58)
[2022-03-22] MEDS: SPIRONOLACTONE 25 MG TABLET PO SCH (09:58)
[2022-03-22] MEDS: ENTRESTO PO SCH (09:58)
[2022-03-22] MEDS: methylPREDNISolone SOD SUCC 40 MG/ML VIAL IV SCH (09:58)
[2022-03-22] MEDS: LEVOTHYROXINE SODIUM 137 MCG TABLET PO SCH (10:03)
[2022-03-22] MEDS: PANTOPRAZOLE 40 MG TABLET.DR PO SCH (10:03)
[2022-03-22] MEDS: ENOXAPARIN SODIUM 40 MG/0.4 ML DISP.SYRIN SQ SCH (10:20)
[2022-03-22] MEDS ORDERED: ALBU18HF2 INH (10:29)
[2022-03-22] MEDS ORDERED: PRED50TA PO (10:29)
[2022-03-22 10:30] VITALS: BP 156/87
[2022-03-22] MEDS ORDERED: IPRA3AMP23 IH (10:37)
--- NOTE | 2022-03-22 13:43 | NUR ---
RN MS NOTES PT AWAKE, ALERT AND ORIENTED, NO COMPLAINT OF PAIN, NOT IN DISTRESS, ON ROOM AIR, TOLERATES WELL, NO SOB, ABLE TO AMBULATE INSIDE HIS ROOM, SEEN BY DR. FRYE, DISCHARGE ORDER GIVEN, PT CLEARED BY DR. KOTHARI, DISCHARGE AND MEDICATION INSTRUCTIONS PROVIDED TO PT AND SON, VERBALIZED UNDERSTANDING, BELONGINGS ACCOUNTED FOR, PT'S NEW PRESCRIPTION SENT ELECTRONICALLY TO PT'S PREFERRED PHARMACY, PICKED UP BY HIS , LEFT IN STABLE CONDITION.
== END 2022-03-22 15:00 | disposition home or self-care (01) | DRG 280 ==
LOC: ER 01:18 → TRANSITION 05:37 → TELE 06:34 → MED 03-21 14:41 → TELE 03-21 14:46 → MED 03-22 10:15
PROVIDERS: ADMIT Internal Medicine; ATTEND Internal Medicine
DX: I21.4 Non-ST elevation (NSTEMI) myocardial infarction (principal); I50.23 Acute on chronic systolic (congestive) heart failure; J44.1 Chronic obstructive pulmonary disease with (acute) exacerbation; I11.0 Hypertensive heart disease with heart failure; Z95.810 Presence of automatic (implantable) cardiac defibrillator; E11.9 Type 2 diabetes mellitus without complications; E78.5 Hyperlipidemia, unspecified; E89.0 Postprocedural hypothyroidism; F17.210 Nicotine dependence, cigarettes, uncomplicated; Z88.1 Allergy status to other antibiotic agents
CPT/HCPCS: 36415; 71045-TC; 76770-TC; 80048-TC; 81001; 82570-TC; 82962-TC; 83735-TC; 83880; 84100-TC; 84300-TC; 84443-TC; 84484-TC; 85025-TC; 87081-TC; 93307-TC; 94799-TC; C9803; G0378; J1650; J1815; J1940; J2270; J2920; J2930

== ENCOUNTER 2022-06-25 19:41 | Inpatient (IN) | payer MEDICARE, OTHER ==
[~2022-06-25] VITALS: Ht 167.6 cm; Wt 73.5 kg
[~2022-06-25 19:41] MED LIST changes: +ALBU18HF2 INH; +ALIR75PE SQ; -AMLO-212 PO; +ASPI-1169 PO; -CARV25TA2 PO; +CARV6.252 PO; +DAPA5TAB PO; -ESOM40CA52 PO; +IPRA3AMP23 IH; +LEVO137T2 PO; -LEVO88TA2 PO; -METF500T PO; -METH4TAB3 PO; -POTA20TA83 PO; +PRED50TA PO; +SACU1TAB4 PO; +SITA1TAB6 PO; -TADA5TAB13 PO
--- NOTE | 2022-06-25 20:10 | NUR ---
TO ER BED 10. BIBWIFE FROM HOME C/O SOB, COUGH, WEAKNESS X5 DAYS. TAKING ATB ZPAK X3DAYS. PT IS ALERT AND ORIENTED. O2 SAT 91% ROOM AIR, PER PT NORMALLY ON 2L OF O2 AT HOME. CONNECTED TO 2L OF O2 NASAL CANNULA. CONNECTED TO MONITOR. AWAITING MD ORDERS
--- NOTE | 2022-06-25 20:15 | NUR ---
BUSHWALKING GUIDE AT PT'S BEDSIDE
--- NOTE | 2022-06-25 20:19 | NUR ---
IV LINE ESTABLISHED, LAC20G
--- NOTE | 2022-06-25 20:19 | NUR ---
JOE BETTS AT BEDSIDE FOR EKG
--- NOTE | 2022-06-25 20:19 | NUR ---
BLOOD COLLECTED AND SENT TO LAB
[2022-06-25] MEDS ORDERED: ACETAMINOPHEN ES 500 MG TABLET ONE (20:24)
[2022-06-25] MEDS ORDERED: IBUPROFEN 600 MG TABLET ONE (20:24)
[2022-06-25] MEDS ORDERED: IBUPROFEN 600 MG TABLET PO ONE (20:30)
[2022-06-25] MEDS ORDERED: ACETAMINOPHEN ES 500 MG TABLET PO ONE (20:30)
[2022-06-25 20:53] LABS: BASOPHILS % (AUTO) 0.3 % (0.0-2.0); EOSINOPHILS % (AUTO) 1.3 % (0.0-6.0); HEMATOCRIT 40 % (39-51); HEMOGLOBIN 13.4 g/dL (13.5-17.5); LYMPHOCYTES # (AUTO) 1.2 K/uL (0.8-4.8); LYMPHOCYTES % (AUTO) 9.5 % (20.0-44.0); MEAN CORPUSCULAR HGB CONC 34 g/dl (31.0-36.0); MEAN CORPUSCULAR VOLUME 91 fL (80-96); MONOCYTES # (AUTO) 0.9 K/uL (0.1-1.30); MONOCYTES % (AUTO) 7.3 % (2.0-12.0); NEUTROPHILS # (AUTO) 10.3 K/uL (1.8-8.9); NEUTROPHILS % (AUTO) 81.6 % (43.0-81.0); PLATELET COUNT (AUTO) 155 K/uL (150-450); WHITE BLOOD COUNT (AUTO) 12.6 K/uL (4.3-11.0)
[2022-06-25 21:01] LABS: ALANINE AMINOTRANSFERASE 20 U/L (12-78); ALBUMIN 3.8 g/dL (3.4-5.0); ALKALINE PHOSPHATASE 55 U/L (46-116); ASPARTATE AMINOTRANSFERASE 15 U/L (15-37); BILIRUBIN,DIRECT 0.2 mg/dL (0.0-0.2); BILIRUBIN,TOTAL 1.2 mg/dL (0.2-1.0); CALCIUM, SERUM 8.8 mg/dL (8.5-10.1); CARBON DIOXIDE 30 mmol/L (21-32); CHLORIDE 104 mmol/L (98-107); CREATININE 1.6 mg/dL (0.6-1.3); GLUCOSE 141 mg/dL (74-106); POTASSIUM 3.5 mmol/L (3.5-5.1); SODIUM SERUM 143 mmol/L (136-145); TOTAL PROTEIN, SERUM 7.5 g/dL (6.4-8.2); UREA NITROGEN, BLOOD 25 mg/dL (7-18)
[2022-06-25] MEDS ORDERED: ALBUTEROL FS 2.5 MG/3 ML VIAL.NEB ONE (21:11)
[2022-06-25] MEDS ORDERED: IPRATROPIUM NEB FS 0.5 MG/2.5 ML AMPUL.NEB ONE (21:11)
[2022-06-25] MEDS ORDERED: methylPREDNISolone SOD SUCC 125 MG/2ML VIAL ONE (21:20)
[2022-06-25] MEDS ORDERED: LEVOFLOXACIN 750 MG /D5W 150ML 150 ML IV ONE (21:20)
[2022-06-25] MEDS ORDERED: HYDROCODONE/APAP 5/325MG TABLET ONE (21:21)
[2022-06-25] MEDS ORDERED: HYDROCODONE/APAP 5/325MG TABLET PO ONE (21:30)
[2022-06-25] MEDS ORDERED: IPRATROPIUM NEB FS 0.5 MG/2.5 ML AMPUL.NEB NEB ONE (21:30)
[2022-06-25] MEDS ORDERED: ALBUTEROL FS 2.5 MG/3 ML VIAL.NEB NEB ONE (21:30)
[2022-06-25] MEDS ORDERED: LEVOFLOXACIN 750 MG /D5W 150ML PIGGYBACK IV ONE (21:30)
[2022-06-25] MEDS ORDERED: methylPREDNISolone SOD SUCC 125 MG/2ML VIAL IV ONE (21:30)
[2022-06-25] MEDS ORDERED: MORPHINE SULFATE INJ 2 MG/ML DISP.SYRIN IV PRN (22:00)
[2022-06-25] MEDS ORDERED: ONDANSETRON HCL/PF 4 MG/2 ML VIAL IVP PRN (22:00)
[2022-06-25] MEDS ORDERED: ACETAMINOPHEN 325 MG TABLET PO PRN (22:00)
[2022-06-25] MEDS ORDERED: MAG HYDROX/AL HYDROX/SIMETH 30 ML UDC PO PRN (22:00)
[2022-06-25] MEDS ORDERED: Z GUARD REMEDY 4 OZ OINT TP PRN (22:00)
[2022-06-25] MEDS ORDERED: HYDROCODONE/APAP 5/325MG TABLET PO PRN (22:00)
[2022-06-25] MEDS ORDERED: ALBUTEROL FS 2.5 MG/3 ML VIAL.NEB NEB PRN (22:00)
[2022-06-25] MEDS ORDERED: TEMAZEPAM 15 MG CAPSULE PO PRN (22:00)
[2022-06-25] MEDS ORDERED: MAGNESIUM HYDROXIDE 30 ML UDC PO PRN (22:00)
[2022-06-25 22:10] LABS: BILIRUBIN,URINE NEGATIVE (NEGATIVE); COLOR,URINE YELLOW (YELLOW); LEUKOCYTE ESTERASE ,URINE NEGATIVE (NEGATIVE); NITRITE, URINE NEGATIVE (NEGATIVE); PH,URINE 5.5 (5.0-8.0); PROTEIN,URINE 100 mg/dl (NEGATIVE); UGLUCOSE >=1000 mg/dL (NEGATIVE); UROBILINOGEN,URINE 0.2 EU/dL (0.2)
[2022-06-25 22:18] LABS: BACTERIA,URINE None seen /HPF (None Seen); SQUAMOUS EPITHELIAL CELL,UR 0-2 /HPF (None Seen); WBC,URINE 0-2 /HPF (0-3)
[2022-06-25] MEDS ORDERED: DEXTROSE 50%-WATER 50 ML DISP.SYRIN IV PRN (22:30)
--- NOTE | 2022-06-25 23:20 | NUR ---
REPORT GIVEN TO SONIDO SIMEON FOR RIGOBERTO
[2022-06-26] VITALS: BP 140/70
--- NOTE | 2022-06-26 | NUR ---
RN ADMITTING NOTE PATIENT FROM HOME, CAME TO ER DT "BREATHING PROBLEM" PER PATIENT. PATIENT IS A/O X 4, ABLE TO MAKE NEEDS KNOWN. SPEAKS BENGALI/LATVIAN. PATIENT RECEIVED ON 02 SUPPLEMENTATION 2LPM VIA NC, PATIENT TOLERATING WELL SATTING 94-95%. PATIENT STATES THAT HE ALSO USES O2 AT HOME. PATIENT REFUSES FLU SHOT AT THIS TIME HE STATES HE MIGHT GET SICK MORE WELL THE PNEUMONIA VAX. PATIENT VACCINATED WITH COVID X 3. NO SKIN ISSUES NOTED. PATIENT IS AMBULATORY, WITH STEADY GAIT. PATIENT'S BELONGINGS INVENTORIED. ORIENTED PATIENT TO ROOM, RN, AND OPEN HEARTH STOCKYARD SUPERVISOR. SAFETY MEASURES IN PLACE: BED LOCKED AND IN LOWEST POSITION, CALL LIGHT WITHIN REACH, SIDE RAILS UP. WILL MONITOR PATIENT CLOSELY.
[2022-06-26] MEDS: ENOXAPARIN SODIUM 30 MG/0.3 ML DISP.SYRIN SQ SCH ×2 (00:24→21:24)
--- NOTE | 2022-06-26 00:43 | NUR ---
PATIENT TRANSFERRED TO 108 VIA ACLS
--- NOTE | 2022-06-26 01:25 | NUR ---
RN NOTE PATIENT COUGHING EXCESSIVELY, NOTIFIED RT TO GIVE BERATHING TX. TEMAZEPAM NOT EFFECTIVE AT THIS TIME D/T PATIENT COUGHING.
--- NOTE | 2022-06-26 02:30 | NUR ---
RN NOTE PATIENT SLEEPING COMFORTABLY AT THIS TIME. NOT IN ANY DISTRESS.
[2022-06-26 04:00] VITALS: BP 128/72
[2022-06-26] MEDS: methylPREDNISolone SOD SUCC 40 MG/ML VIAL IV SCH ×3 (04:14→21:21)
--- NOTE | 2022-06-26 06:46 | NUR ---
RN CLOSING NOTE PATIENT IN BED, AWAKE. ABLE TO MAKE NEEDS KNOWN, A/O X 4 . PATIENT IS ON 02 SUPPLEMENTATION 2 LPM VIA NC, SATTING 93-95%. BREATHING EVEN AND UNLABORED. PATIENT STILL COUGHING. PATIENT DOES NOT REPORT ANY PAIN AT THIS TIME. PATIENT REMAINED AFEBRILE DURING THE SHIFT. LAC 20G PATENT AND INTACT, FLUSHING WELL. PATIENT NOT IN ANY APPARENT DISTRESS. SAFETY MEASURES IN PLACE: BED LOCKED AND IN LOWEST POSITION, CALL LIGHT WITHIN REACH, SIDE RAILS UP. ALL NEEDS MET AND ATTENDED. ALL ORDERS CARRIED OUT. WILL ENDORSE TO DAY SHIFT NURSE FOR RIGOBERTO.
--- NOTE | 2022-06-26 07:25 | NUR ---
CREDIT DEPARTMENT MANAGER OPENING NOTES: RECEIVED PATIENT IN BED, AWAKE, ALERT, ORIENTED X 4. NO SOB NOTED AT THIS TIME BUT NOTED WITH OCCASIONAL COUGH BUT NO RESPIRATORY DISTRESS NOTED. ON OXYGEN @ 2L/MIN VIA N/C WITH OXYGEN SATURATION OF 94%. ON SR ON TELE MONITOR WITH HR OF 87. HAS IV ACCESS ON LEFT ANTECUBITAL AREA, PATENT AND FLUSHES WELL, NO S/S OF INFILTRATION NOTED. CALL LIGHT WITHIN REACH, AND INSTRUCTED PATIENT TO PLEASE CALL WHENEVER HE NEEDS TO GO TO THE BATHROOM FOR SAFETY. BED LOCKED AND IN LOWEST POSITION. ALL SAFETY MEASURES IMPLEMENTED. WILL CONTINUE TO MONITOR PATIENT THROUGHOUT SHIFT.
[2022-06-26] MEDS: INSULIN REGULAR, HUMAN 100 UNIT/ML 3 ML VIAL SQ PRN ×4 (07:36→21:46)
[2022-06-26] MEDS: BLOOD SUGAR DIAGNOSTIC 1 EACH STRIP IN SCH ×4 (07:37→21:24)
[2022-06-26] MEDS: LEVOTHYROXINE SODIUM 137 MCG TABLET PO SCH (07:37)
[2022-06-26] MEDS: PANTOPRAZOLE 40 MG TABLET.DR PO SCH (07:37)
[2022-06-26 08:00] VITALS: BP 129/80
[2022-06-26] MEDS: ASPIRIN EC 81 MG TABLET.DR PO SCH (08:41)
[2022-06-26] MEDS: CARVEDILOL 6.25 MG TABLET PO SCH ×2 (08:41→21:22)
[2022-06-26] MEDS: ATORVASTATIN 10 MG TABLET PO SCH (08:41)
[2022-06-26] MEDS ORDERED: LEVOFLOXACIN (250MG) 250 MG TABLET PO SCH (09:00)
[2022-06-26 09:10] LABS: HEMATOCRIT 40 % (39-51); HEMOGLOBIN 13.1 g/dL (13.5-17.5); LYMPHOCYTES # (AUTO) 0.8 K/uL (0.8-4.8); LYMPHOCYTES % (AUTO) 6.4 % (20.0-44.0); MEAN CORPUSCULAR HGB CONC 33 g/dl (31.0-36.0); MEAN CORPUSCULAR VOLUME 92 fL (80-96); MONOCYTES # (AUTO) 0.1 K/uL (0.1-1.30); MONOCYTES % (AUTO) 0.9 % (2.0-12.0); NEUTROPHILS # (AUTO) 11.1 K/uL (1.8-8.9); NEUTROPHILS % (AUTO) 92.7 % (43.0-81.0); PLATELET COUNT (AUTO) 155 K/uL (150-450); RED BLOOD CELL COUNT(AUTO) 4.35 MIL/uL (4.5-6.0)
[2022-06-26 09:22] LABS: CARBON DIOXIDE 26 mmol/L (21-32); CHLORIDE 102 mmol/L (98-107); CREATININE 1.7 mg/dL (0.6-1.3); GLUCOSE 239 mg/dL (74-106); MAGNESIUM 1.9 mg/dL (1.8-2.4); PHOSPHORUS 4.1 mg/dL (2.5-4.9); POTASSIUM 3.4 mmol/L (3.5-5.1); SODIUM SERUM 141 mmol/L (136-145); UREA NITROGEN, BLOOD 30 mg/dL (7-18)
[2022-06-26 09:33] LABS: CHOLESTEROL 128 mg/dL (<200); HDL CHOLESTEROL 61 mg/dL (40-60); LDL 64 mg/dL (0-99); THYROID STIMULATING HORMONE 0.117 uIU/mL (0.358-3.74); TRIGLYCERIDES 55 mg/dL (30-150)
[2022-06-26 09:48] LABS: ABG BASE EXCESS 0.4 mmol/L; ABG PCO2 34.1 mmHg (35.0-45.0); ABG PO2 57.5 mmHg (75.0-100.0); COHb 0.2 % (0.5-1.5); MetHb 0.3 % (0.0-1.5); SITE, ABG Right Radial
[2022-06-26] MEDS: ALBUTEROL HALF STRENGTH 1.25 MG/3 ML VIAL.NEB NEB SCH ×4 (09:56→23:10)
[2022-06-26] MEDS: IPRATROPIUM NEB FS 0.5 MG/2.5 ML AMPUL.NEB NEB SCH ×5 (09:56→23:10)
[2022-06-26] MEDS: GUAIFENESIN LA 600 MG TABLET.SA PO SCH ×2 (11:27→21:22)
[2022-06-26] MEDS: LEVOFLOXACIN 500 MG /D5W 100ML 100 ML IV SCH (11:28)
[2022-06-26 12:00] VITALS: BP 139/72
--- NOTE | 2022-06-26 13:00 | NUR ---
ECHOCARDIOGRAM DONE AT BEDSIDE, PATENT TOLERATED IT WELL
[2022-06-26 16:00] VITALS: BP 150/67
[2022-06-26] MEDS: ENTRESTO PO SCH ×2 (16:14→16:31)
--- NOTE | 2022-06-26 18:31 | NUR ---
LINTING MACHINE OPERATOR CLOSING NOTES: PATIENT IN BED, AWAKE, ALERT, ORIENTED X 4, WATCHING TELEVISION.. NO RESPIRATORY DISTRESS NOTED AT THIS TIME, BREATHING EVEN AND UNLABORED. ON OXYGEN @ 2L/MIN VIA N/C WITH OXYGEN SATURATION OF 94%. ON ST ON TELE MONITOR WITH HR OF 107 WITH AV PACING. PATIENT'S IV ACCESS ON LEFT ANTECUBITAL AREA, PATENT AND FLUSHES WELL, NO S/S OF INFILTRATION NOTED. ALL NEEDS MET AND ANTICIPATED. CALL LIGHT WITHIN REACH. BED LOCKED AND IN LOWEST POSITION. ALL SAFETY MEASURES IMPLEMENTED. WILL ENDORSE TO NEXT SHIFT NURSE FOR CONTINUITY OF CARE
--- NOTE | 2022-06-26 19:30 | NUR ---
RECEIVED PATIENT RESTING COMFORTABLY IN BED, A/O X 4. NO SOB NOTED AT THIS TIME BUT NOTED WITH OCCASIONAL COUGH BUT NO RESPIRATORY DISTRESS NOTED. ON OXYGEN @ 2L/MIN VIA N/C WITH OXYGEN SATURATION OF 95%. ON SR TO ST ON TELE MONITOR WITH HR OF 90'S. HAS IV ACCESS ON LEFT ANTECUBITAL AREA G#20 ON SL, PATENT AND FLUSHES WELL, NO S/S OF INFILTRATION NOTED. SAFETY MEASURES IN PLACE BED LOW AND LOCKED, SIDERAILS UP X2, HEAD OF BED SLIGHTLY ELEVATED, BED ALARM ON, CALL LIGHT WITHIN REACH. WILL CONTINUE PLAN OF CARE.
[2022-06-26 20:00] VITALS: BP 131/73
[2022-06-27] VITALS: BP 143/68
[2022-06-27] MEDS: GUAIFENESIN/CODEINE 10 ML UDC PO PRN ×2 (02:27→10:52)
[2022-06-27] MEDS: IPRATROPIUM NEB FS 0.5 MG/2.5 ML AMPUL.NEB NEB SCH ×6 (03:41→23:16)
[2022-06-27] MEDS: ALBUTEROL HALF STRENGTH 1.25 MG/3 ML VIAL.NEB NEB SCH ×6 (03:41→23:16)
[2022-06-27 04:00] VITALS: BP 143/68
[2022-06-27] MEDS: methylPREDNISolone SOD SUCC 40 MG/ML VIAL IV SCH ×3 (04:46→21:37)
[2022-06-27 06:02] LABS: HEMATOCRIT 39 % (39-51); HEMOGLOBIN 13.1 g/dL (13.5-17.5); LYMPHOCYTES # (AUTO) 1.1 K/uL (0.8-4.8); LYMPHOCYTES % (AUTO) 5.1 % (20.0-44.0); MEAN CORPUSCULAR HGB CONC 33 g/dl (31.0-36.0); MEAN CORPUSCULAR VOLUME 90 fL (80-96); NEUTROPHILS # (AUTO) 18.9 K/uL (1.8-8.9); NEUTROPHILS % (AUTO) 89.9 % (43.0-81.0); PLATELET COUNT (AUTO) 174 K/uL (150-450); RED BLOOD CELL COUNT(AUTO) 4.35 MIL/uL (4.5-6.0)
[2022-06-27 06:15] LABS: CALCIUM, SERUM 9.6 mg/dL (8.5-10.1); CARBON DIOXIDE 25 mmol/L (21-32); CHLORIDE 102 mmol/L (98-107); GLUCOSE 193 mg/dL (74-106); MAGNESIUM 1.9 mg/dL (1.8-2.4); PHOSPHORUS 4.9 mg/dL (2.5-4.9); POTASSIUM 3.3 mmol/L (3.5-5.1); SODIUM SERUM 140 mmol/L (136-145); UREA NITROGEN, BLOOD 46 mg/dL (7-18)
--- NOTE | 2022-06-27 07:00 | NUR ---
RN NOTE RECEIVED PATIENT IN BED RESTING ALERT ORIENTED X4 VERBALLY RESPONSIVE ON 2L OXYGEN VIA NASAL CANNULA,O2:98% IV SITE IS LEFT AC INTACT PATENT,AMBULATORY,CONTIENT BOWEL/BLADDER SAFETY MEASURE IMPLEMENT BED IN LOW POSITION AND LOCKED,CALL LIGHT WITHIN REACH,HEAD OF THE BED ELEVATED,CONTINUE TO MONITOR.
--- NOTE | 2022-06-27 07:35 | NUR ---
PATIENT SLEEPING COMFORTABLY IN BED, A/O X 4. NO SOB NOTED AT THIS TIME BUT NOTED WITH OCCASIONAL COUGH BUT NO RESPIRATORY DISTRESS NOTED. ON OXYGEN @ 2L/MIN VIA N/C WITH OXYGEN SATURATION OF 95%. ON SR TO ST ON TELE MONITOR WITH HR OF 90'S. HAS IV ACCESS ON LEFT ANTECUBITAL AREA G#20 ON SL, PATENT AND FLUSHES WELL, NO S/S OF INFILTRATION NOTED. SAFETY MEASURES MAINTAINED. BED LOW AND LOCKED, SIDERAILS UP X2, HEAD OF BED SLIGHTLY ELEVATED, BED ALARM ON, CALL LIGHT WITHIN REACH. WILL ENDORSE TO NEXT NURSE ON DUTY FOR CONTINUITY OF CARE.
[2022-06-27] MEDS: LEVOTHYROXINE SODIUM 137 MCG TABLET PO SCH (07:38)
[2022-06-27] MEDS: PANTOPRAZOLE 40 MG TABLET.DR PO SCH (07:38)
[2022-06-27] MEDS: BLOOD SUGAR DIAGNOSTIC 1 EACH STRIP IN SCH ×4 (07:39→21:52)
[2022-06-27] MEDS: FARXIGA 5 MG PO SCH (07:39)
[2022-06-27 08:00] VITALS: BP 157/90
[2022-06-27] MEDS: GUAIFENESIN LA 600 MG TABLET.SA PO SCH ×2 (08:24→21:37)
[2022-06-27] MEDS: ASPIRIN EC 81 MG TABLET.DR PO SCH (08:24)
[2022-06-27] MEDS: ATORVASTATIN 10 MG TABLET PO SCH (08:25)
[2022-06-27] MEDS: ENTRESTO PO SCH ×2 (08:25→16:41)
[2022-06-27] MEDS: CARVEDILOL 6.25 MG TABLET PO SCH ×2 (08:26→21:37)
[2022-06-27] MEDS: INSULIN REGULAR, HUMAN 100 UNIT/ML 3 ML VIAL SQ PRN ×4 (09:23→21:57)
[2022-06-27] MEDS ORDERED: POTASSIUM CHLORIDE 10 MEQ TABLET.SA PO ONE (10:00)
[2022-06-27] MEDS: LEVOFLOXACIN 500 MG /D5W 100ML 100 ML IV SCH (10:06)
--- NOTE | 2022-06-27 10:58 | NUR ---
RN NOTE REPORT GIVEN TO ARPITA SIMEON FOR CONTINUATION OF CARE.
--- NOTE | 2022-06-27 11:10 | NUR ---
MS RN NOTE RECEIVED PATIENTIN THE BED. A&OX4. 2L NASAL CANNULA. NO SOB NOTED. PT. COMPLAINT COUHG. POTASSIUM WILL BE GIVEN. LEFT AC HL INTACT. ON TELEMONITOR. SINUS TACHY. HR @102. DR. LARA AT BEDSIDE. WILL FOLLOW UP.
--- NOTE | 2022-06-27 15:03 | NUR ---
MS RN NOTE CONTACT WORKER NOTIFIED THAT PATIENT HAS OWN HOME HEALTH. BREATHING NEBULIZER NEEDS TO BE ARRANGED BY CONTACT WORKER. PATIENT STATED PATIENT HAS OXYGEN AT HOME, AT ROOM AIR OXYGEN IS AT 96%.
[2022-06-27 16:00] VITALS: BP 140/90
[2022-06-27 16:39] LABS: CREATININE, URINE 102.9 MG/DL (30.0-125.0)
--- NOTE | 2022-06-27 16:49 | NUR ---
MS RN NOTE ON BREATHING TX ORDERED , NOT IN DISTRESS CALL LIGHT WITHIN RECH
--- NOTE | 2022-06-27 18:37 | NUR ---
GARAGE HAND NOTE CT CHEST DONE, ALL NEEDS ATTENDED ON 2L NC NO SOB NOTED AT THIS TIME BED IN LOWEST AND LOCKED POSITION , WILL CONT TO MONITOR
[2022-06-27 20:00] VITALS: BP 144/73
[2022-06-27] MEDS: ENOXAPARIN SODIUM 30 MG/0.3 ML DISP.SYRIN SQ SCH (21:38)
[2022-06-28 01:24] VITALS: BP 142/72
[2022-06-28 04:00] VITALS: BP 119/62
[2022-06-28] MEDS: IPRATROPIUM NEB FS 0.5 MG/2.5 ML AMPUL.NEB NEB SCH ×3 (04:22→11:39)
[2022-06-28] MEDS: ALBUTEROL HALF STRENGTH 1.25 MG/3 ML VIAL.NEB NEB SCH ×3 (04:22→11:39)
[2022-06-28] MEDS: methylPREDNISolone SOD SUCC 40 MG/ML VIAL IV SCH (05:28)
--- NOTE | 2022-06-28 06:55 | NUR ---
RN CLOSING NOTE: ALERT AND ORIENTED X4. UNLABORED BREATHING WITH 02 2LPM NC SATING AT 98 %. HOB ELEVATED SEMI-FOWLERS POSITION. BILATERAL HALF SIDE RAILS UP X2. BED IN LOW POSITION, EXIT ALARM, BED IS LOCKED, CALL LIGHT WITHIN REACH. IV ON LEFT AC PATENT. NO S/S OF COMPLICATIONS. ALL NEEDS MET AND ATTENDED. KEPT CLEAN AND COMFORTABLE. ABLE TO SLEEP WELL. DECLINES PAIN OR DISCOMFORT.
--- NOTE | 2022-06-28 07:00 | NUR ---
RN NOTE RECEIVED PATIENT IN BED RESTING ALERT ORIENTED X4 VERBALLY RESPONSIVE ON 2L OXYGEN VIA NASAL CANNULA O2:98% IV SITE IS ON LEFT AC INTACT PATENT AMBULATORY, CONTIENT BOWEL/BLADDER,SAFETY MEASURE IMPLEMENT,BED IN LOW POSITION AND LOCKED,CALL LIGHT WITHIN REACH CONTINUE TO MONITOR
[2022-06-28] MEDS: PANTOPRAZOLE 40 MG TABLET.DR PO SCH (07:34)
[2022-06-28] MEDS: LEVOTHYROXINE SODIUM 137 MCG TABLET PO SCH (07:34)
[2022-06-28] MEDS: FARXIGA 5 MG PO SCH (07:35)
[2022-06-28] MEDS: BLOOD SUGAR DIAGNOSTIC 1 EACH STRIP IN SCH ×2 (07:35→12:08)
[2022-06-28] MEDS: INSULIN REGULAR, HUMAN 100 UNIT/ML 3 ML VIAL SQ PRN ×2 (07:59→12:10)
[2022-06-28 08:00] VITALS: BP 145/81
[2022-06-28] MEDS: ATORVASTATIN 10 MG TABLET PO SCH (08:23)
[2022-06-28] MEDS: ASPIRIN EC 81 MG TABLET.DR PO SCH (08:23)
[2022-06-28] MEDS: ENTRESTO PO SCH (08:23)
[2022-06-28] MEDS: GUAIFENESIN LA 600 MG TABLET.SA PO SCH (08:23)
[2022-06-28 08:24] VITALS: BP 145/81
[2022-06-28] MEDS: CARVEDILOL 6.25 MG TABLET PO SCH (08:24)
[2022-06-28] MEDS: LEVOFLOXACIN 500 MG /D5W 100ML 100 ML IV SCH (10:12)
[2022-06-28 11:48] LABS: CARBON DIOXIDE 27 mmol/L (21-32); CHLORIDE 105 mmol/L (98-107); CREATININE 1.8 mg/dL (0.6-1.3); GLUCOSE 212 mg/dL (74-106); POTASSIUM 3.9 mmol/L (3.5-5.1); SODIUM SERUM 139 mmol/L (136-145); UREA NITROGEN, BLOOD 50 mg/dL (7-18)
--- NOTE | 2022-06-28 12:29 | NUR ---
DUPLICATION SPECIALIST NOTE PATIENT DISCHARGE HOME IN STABLE CONDITION,NO SOB NOT ACUTE DISTRESS NOTED,IV REMOVED NO BLEEDING NOTED,ALL EDUCATION GIVEN REGARDING REGRADING FOLLOWING APPOINTMENTS,AND MEDICATIONS HE VERBALIZED UNDERSTOOD ALL TEACHING.PATIENT DISCHARGE WITH ALL BELONGINGS,HE SINGED ALL DISCHARGE PAPER,HE LEFT HOSPITAL,IN STABLE CONDITION WITH HIS AND SON BY PRIVATE CAR.
== END 2022-06-28 13:18 | disposition home health service (06) | DRG 280 ==
LOC: ER 19:46 → TELE1 23:00 → MEDSG1 06-27 08:21
PROVIDERS: ADMIT Nurse Practitioner Acute Care; ATTEND Nurse Practitioner Acute Care
DX: I21.4 Non-ST elevation (NSTEMI) myocardial infarction (principal); J15.9 Unspecified bacterial pneumonia; N17.0 Acute kidney failure with tubular necrosis; J44.1 Chronic obstructive pulmonary disease with (acute) exacerbation; I13.0 Hypertensive heart and chronic kidney disease with heart failure and stage 1 through stage 4 chronic kidney disease, or unspecified chronic kidney disease; I50.22 Chronic systolic (congestive) heart failure; I42.9 Cardiomyopathy, unspecified; J44.0 Chronic obstructive pulmonary disease with (acute) lower respiratory infection; E78.5 Hyperlipidemia, unspecified; I25.2 Old myocardial infarction; Z95.810 Presence of automatic (implantable) cardiac defibrillator; Z87.891 Personal history of nicotine dependence; N18.9 Chronic kidney disease, unspecified; E11.22 Type 2 diabetes mellitus with diabetic chronic kidney disease; Z85.850 Personal history of malignant neoplasm of thyroid; Z79.51 Long term (current) use of inhaled steroids; Z88.1 Allergy status to other antibiotic agents; Z79.84 Long term (current) use of oral hypoglycemic drugs; Z79.82 Long term (current) use of aspirin; Z79.899 Other long term (current) drug therapy; N32.0 Bladder-neck obstruction; N40.0 Benign prostatic hyperplasia without lower urinary tract symptoms; E89.0 Postprocedural hypothyroidism; I25.10 Atherosclerotic heart disease of native coronary artery without angina pectoris; E87.6 Hypokalemia; N20.0 Calculus of kidney; N28.1 Cyst of kidney, acquired
CPT/HCPCS: 36415; 36600; 71045-TC; 71250-TC; 76770-TC; 80048-TC; 80061-TC; 80076-TC; 81001; 82570-TC; 82803-TC; 82962-TC; 83605-TC; 83735-TC; 84100-TC; 84300-TC; 84443-TC; 84484-TC; 85025-TC; 85730-TC; 87040-TC; 87081-TC; 87086-TC; 93307-TC; 94799-TC; C9803; G0378; J1650; J1815; J1956; J2920; J2930; J7050

== ENCOUNTER 2022-07-05 12:12 | Outpatient (CLI) | payer MEDICARE, OTHER ==
[~2022-07-05 12:12] MED LIST changes: -PRED50TA PO
[2022-07-05 13:33] LABS: THYROID STIMULATING HORMONE 0.294 uIU/mL (0.358-3.74)
== END 2022-07-05 23:59 | disposition home or self-care (01) ==
LOC: LAB 12:12
PROVIDERS: ATTEND Internal Medicine Interventional Cardiology
DX: E03.9 Hypothyroidism, unspecified (principal)
CPT/HCPCS: 36415; 84439-TC; 84443-TC

== ENCOUNTER 2022-12-21 12:45 | Inpatient (IN) | payer MEDICARE, OTHER ==
[2022-12-21] VITALS (7 sets, daily range): BP systolic 83–115; BP diastolic 39–60
[~2022-12-21] VITALS: Ht 160 cm; Wt 70.8 kg
--- NOTE | 2022-12-21 12:50 | NUR ---
RECEVED PT 77 YRS MALE came from home c/o SOB and since 9 am today awake and alert no distress O2 SAT 86-88 % ON ROOM AIR FIO2 WITH 2L 90% INCREASED TO 4LNC 92% HOB 45%
--- NOTE | 2022-12-21 12:55 | NUR ---
DR. DAVIS AT BED SIDE.
--- NOTE | 2022-12-21 13:00 | NUR ---
INSERTED ANGO CATHETER C-G 18 ON RT WRIST BLOOD DROW AND SENT TO LAB BC X2 SENT AND LACTICK SENT TO LAB
--- NOTE | 2022-12-21 13:10 | NUR ---
RENE CAMP SENT TO LAB
--- NOTE | 2022-12-21 13:23 | NUR ---
MOVE SHEET SUBMITTED.
[2022-12-21] MEDS ORDERED: SPIR25TA6 PO (13:36)
[2022-12-21] MEDS ORDERED: POTA20TA83 PO (13:36)
[2022-12-21] MEDS ORDERED: ALBU18HF2 IH (13:36)
[2022-12-21 13:38] LABS: CALCIUM, SERUM 8.9 mg/dL (8.5-10.1); CARBON DIOXIDE 25 mmol/L (21-32); CHLORIDE 101 mmol/L (98-107); GLUCOSE 158 mg/dL (74-106); SODIUM SERUM 136 mmol/L (136-145); UREA NITROGEN, BLOOD 54 mg/dL (7-18)
[2022-12-21 13:40] LABS: BASOPHILS % (AUTO) 0.2 % (0.0-2.0); HEMATOCRIT 41 % (39-51); HEMOGLOBIN 13.7 g/dL (13.5-17.5); LYMPHOCYTES # (AUTO) 1.1 K/uL (0.8-4.8); LYMPHOCYTES % (AUTO) 11.6 % (20.0-44.0); MEAN CORPUSCULAR HGB CONC 34 g/dl (31.0-36.0); MEAN CORPUSCULAR VOLUME 89 fL (80-96); MONOCYTES # (AUTO) 0.9 K/uL (0.1-1.30); MONOCYTES % (AUTO) 9.4 % (2.0-12.0); NEUTROPHILS # (AUTO) 7.2 K/uL (1.8-8.9); NEUTROPHILS % (AUTO) 78.8 % (43.0-81.0); PLATELET COUNT (AUTO) 106 K/uL (150-450); RED BLOOD CELL COUNT(AUTO) 4.55 MIL/uL (4.5-6.0); WHITE BLOOD COUNT (AUTO) 9.2 K/uL (4.3-11.0)
--- NOTE | 2022-12-21 13:47 | NUR ---
SON AT BED SIDE KACI BECERRA
--- NOTE | 2022-12-21 13:48 | NUR ---
[facility] [phone] DR. SANTOS LA.
[2022-12-21 13:54] LABS: ALANINE AMINOTRANSFERASE 29 U/L (12-78); ALBUMIN 3.9 g/dL (3.4-5.0); ALKALINE PHOSPHATASE 52 U/L (46-116); ASPARTATE AMINOTRANSFERASE 28 U/L (15-37); BILIRUBIN,DIRECT 0.3 mg/dL (0.0-0.2); BILIRUBIN,TOTAL 1.5 mg/dL (0.2-1.0); TOTAL PROTEIN, SERUM 7.6 g/dL (6.4-8.2)
[2022-12-21] MEDS ORDERED: IV NS 0.9% 500 ML BAG IV ONE (14:00)
[2022-12-21] MEDS ORDERED: LEVOFLOXACIN 750 MG /D5W 150ML PIGGYBACK IV ONE (14:00)
[2022-12-21] MEDS ORDERED: LEVOFLOXACIN 750 MG /D5W 150ML 150 ML IV ONE ×2 (14:22→15:53)
--- NOTE | 2022-12-21 14:47 | NUR ---
[facility] CALLED RN ENDOCRINOLOGY PAGED.
[2022-12-21] MEDS ORDERED: ASPIRIN 325 MG TABLET PO ONE (15:00)
[2022-12-21] MEDS ORDERED: VANCOMYCIN 1 GM in IV D5W 250 ML IV ONE (15:00)
[2022-12-21] MEDS ORDERED: ASPIRIN 325 MG TABLET ONE (15:12)
--- NOTE | 2022-12-21 15:22 | NUR ---
TO CT SCAN
[2022-12-21] MEDS ORDERED: NOREPINEPHRINE 8 MG in IV NS 0.9% 242 ML IV PRN (15:30)
[2022-12-21] MEDS ORDERED: ONDANSETRON HCL/PF 4 MG/2 ML VIAL IVP PRN (15:30)
[2022-12-21] MEDS ORDERED: Z GUARD REMEDY 4 OZ OINT TP PRN (15:30)
[2022-12-21] MEDS ORDERED: MAGNESIUM HYDROXIDE 30 ML UDC PO PRN (15:30)
[2022-12-21] MEDS ORDERED: methylPREDNISolone SOD SUCC 125 MG/2ML VIAL IV ONE (15:30)
[2022-12-21] MEDS ORDERED: MAG HYDROX/AL HYDROX/SIMETH 30 ML UDC PO PRN (15:30)
[2022-12-21] MEDS ORDERED: DEXTROSE 50%-WATER 50 ML DISP.SYRIN IV PRN (15:30)
[2022-12-21] MEDS ORDERED: ALBUTEROL FS 2.5 MG/3 ML VIAL.NEB NEB PRN (15:30)
[2022-12-21] MEDS ORDERED: IPRATROPIUM NEB FS 0.5 MG/2.5 ML AMPUL.NEB NEB PRN (15:30)
[2022-12-21] MEDS ORDERED: HYDROCODONE/APAP 5/325MG TABLET PO PRN (15:30)
[2022-12-21] MEDS ORDERED: ACETAMINOPHEN 325 MG TABLET PO PRN (15:30)
--- NOTE | 2022-12-21 15:35 | NUR ---
ICU 255
[2022-12-21] MEDS ORDERED: VANCOMYCIN 1.5 GM in IV D5W 500 ML IV ONE (16:00)
--- NOTE | 2022-12-21 16:46 | NUR ---
HAND OFF TO WILBERTO SIMEON TO ROOM 255 PT AWAKE ZEENAT CANALES NO DISTREDD
--- NOTE | 2022-12-21 17:00 | NUR ---
RN NOTES PT ADMITTED VIA ED. REPORT GIVEN BY ED NURSE. PT ADMITTED FOR ACUTE RESP FAILURE, CHF EXACERBATION, AND ELEVATED TROP. PT ON 4L NC AND IS COMFORTABLE. BP WAS LOW WHEN PT CAME ONTO THE FLOOR; CONTINUED TO MONITOR BP. CXR NEGATIVE, CT CHEST SHOWS POSSIBLE PNA, AND CT ABD AND PELVIC WAS NEGATIVE. LEVAQUIN AND VANCO GIVEN IN ED PER ED NURSE. TROP AT 401 AND LACTIC 2.6 ELEVATED; ED PHYSICIAN IS AWARE.
[2022-12-21] MEDS: BLOOD SUGAR DIAGNOSTIC 1 EACH STRIP IN SCH ×2 (17:09→21:53)
[2022-12-21] MEDS: INSULIN REGULAR, HUMAN 100 UNIT/ML 3 ML VIAL SQ PRN ×2 (17:48→21:56)
[2022-12-21 18:46] LABS: BILIRUBIN,URINE NEGATIVE (NEGATIVE); COLOR,URINE YELLOW (YELLOW); LEUKOCYTE ESTERASE ,URINE NEGATIVE (NEGATIVE); NITRITE, URINE NEGATIVE (NEGATIVE); PH,URINE 5.5 (5.0-8.0); PROTEIN,URINE 1+ mg/dl (NEGATIVE); UGLUCOSE 2+ mg/dL (NEGATIVE); UROBILINOGEN,URINE 0.2 EU/dL (0.2)
--- NOTE | 2022-12-21 19:23 | NUR ---
RN CLOSING NOTES PT IS COMFORTABLE, NO COMPLAINT OF PAIN AT THIS TIME, ALL DUE MEDICATIONS GIVEN. SPOKE TO DR. GRAHAM AND PLACED A NURSING COMM NOTE FOR DR. GRAHAM TO PUT IN AN ORDER FOR LEVOPHED IF PT'S MAP FALLS BELOW 55. REPORT GIVEN TO SILKE SIMEON FOR CONTINUATION OF CARE.
[2022-12-21 20:09] LABS: BACTERIA,URINE None seen /HPF (None Seen); SQUAMOUS EPITHELIAL CELL,UR 0-2 /HPF (None Seen); WBC,URINE 0-2 /HPF (0-3)
[2022-12-21] MEDS: methylPREDNISolone SOD SUCC 40 MG/ML VIAL IV SCH (20:22)
[2022-12-21] MEDS: BENZONATATE 100 MG CAPSULE PO PRN (21:19)
[2022-12-22] VITALS (20 sets, daily range): BP systolic 96–145; BP diastolic 42–84
[2022-12-22] MEDS: methylPREDNISolone SOD SUCC 40 MG/ML VIAL IV SCH ×3 (05:13→21:37)
[2022-12-22 05:26] LABS: HEMATOCRIT 39 % (39-51); HEMOGLOBIN 12.9 g/dL (13.5-17.5); LYMPHOCYTES # (AUTO) 0.7 K/uL (0.8-4.8); LYMPHOCYTES % (AUTO) 7.3 % (20.0-44.0); MEAN CORPUSCULAR HGB CONC 33 g/dl (31.0-36.0); MEAN CORPUSCULAR VOLUME 90 fL (80-96); MONOCYTES # (AUTO) 0.3 K/uL (0.1-1.30); MONOCYTES % (AUTO) 3.4 % (2.0-12.0); NEUTROPHILS # (AUTO) 8.9 K/uL (1.8-8.9); NEUTROPHILS % (AUTO) 89.3 % (43.0-81.0); PLATELET COUNT (AUTO) 93 K/uL (150-450); RED BLOOD CELL COUNT(AUTO) 4.36 MIL/uL (4.5-6.0)
[2022-12-22 05:35] LABS: CALCIUM, SERUM 9.2 mg/dL (8.5-10.1); CARBON DIOXIDE 22 mmol/L (21-32); CHLORIDE 101 mmol/L (98-107); CREATININE 3.1 mg/dL (0.6-1.3); GLUCOSE 177 mg/dL (74-106); MAGNESIUM 2.1 mg/dL (1.8-2.4); PHOSPHORUS 4.3 mg/dL (2.5-4.9); POTASSIUM 4.9 mmol/L (3.5-5.1); SODIUM SERUM 137 mmol/L (136-145); UREA NITROGEN, BLOOD 69 mg/dL (7-18)
--- NOTE | 2022-12-22 06:37 | NUR ---
END OF SHIFT SUMMARY I received the patient in bed, alert and oriented x 4. Pt denies pain and is cooperative with his care. Pt developed a lould cough and Maria A Emma ordered Tessalon Pearles which was very effective in quieting the cough. Pt's vital signs remained stable throughout the night. Report endorsed to day shift RN. Addendum: 12/22/22 at 0644 by SILKE SWAIN ADM Troponin is 366. Trending down from 400.
[2022-12-22 06:40] LABS: CHOLESTEROL 106 mg/dL (<200); HDL CHOLESTEROL 50 mg/dL (40-60); LDL 47 mg/dL (0-99); TRIGLYCERIDES 79 mg/dL (30-150)
[2022-12-22] MEDS: BENZONATATE 100 MG CAPSULE PO PRN ×2 (07:29→18:02)
[2022-12-22] MEDS: BLOOD SUGAR DIAGNOSTIC 1 EACH STRIP IN SCH ×4 (08:03→21:37)
[2022-12-22] MEDS: ASPIRIN 81 MG TAB.CHEW PO SCH (08:03)
[2022-12-22] MEDS: PANTOPRAZOLE 40 MG TABLET.DR PO SCH (08:03)
[2022-12-22] MEDS: INSULIN REGULAR, HUMAN 100 UNIT/ML 3 ML VIAL SQ PRN ×4 (08:05→21:37)
--- NOTE | 2022-12-22 08:54 | NUR ---
RN NOTES SPOKE TO DR. GRAHAM. RECEIVED VERBAL ORDERS FOR ONE TIME 250 ML NS BOLUS.
[2022-12-22] MEDS ORDERED: IV NS 0.9% 250 ML IV ONE (09:00)
[2022-12-22] MEDS: IPRATROPIUM NEB FS 0.5 MG/2.5 ML AMPUL.NEB NEB SCH ×3 (10:30→19:30)
--- NOTE | 2022-12-22 11:05 | NUR ---
RN NOTES RECEIVED CALL FROM PHARMACY THAT NOTIFIED ME THAT PT'S POTASSIUM IS 4.9 TODAY. PT CURRENTLY GETTING 40 MEQ OF POTASSIUM DAILY. NOTIFIED DR. ZURITA; PER THE DOCTOR, HOLD TODAY'S DOSE, BUT CONTINUE WITH NORMAL ROUTINE TOMORROW 12/23/22. NOTIFIED PHARMACY OF THE DOCTOR'S REQUEST AND THEY WILL HOLD FOR TODAY ONLY.
--- NOTE | 2022-12-22 11:14 | NUR ---
RN NOTES NOTIFIED DR. KOTHARI THAT PT'S PLT IS 93. PER THE DOCTOR, OK TO GIVE TODAY, WILL REPEAT CBC TOMORROW.
[2022-12-22] MEDS: HEPARIN SODIUM, PORCINE 5000 UNITS/1 ML VIAL SQ SCH ×2 (11:16→16:12)
[2022-12-22] MEDS ORDERED: LEVOFLOXACIN 750 MG /D5W 150ML 750 MG in PREMIX 1 EA IV SCH (16:00)
[2022-12-22] MEDS: METFORMIN 500 MG TABLET PO SCH (16:10)
[2022-12-22] MEDS: CARVEDILOL 6.25 MG TABLET PO SCH (16:10)
[2022-12-22 16:41] LABS: BAND % (MANUAL) 5 % (0.0-5.0); LYMPHOCYTES % (MANUAL) 6 % (16-48); METAMYELOCYTES % 1 % (0-0); MONOCYTES % (MANUAL) 5 % (0-11.0); NEUTROPHILS % (MANUAL) 83 (42-76)
[2022-12-22] MEDS ORDERED: Medication Not On Formulary EA (Sitagliptin Phos/Metformin Hcl (Janumet 50-1,000 Mg Tabl PO SCH (17:00)
[2022-12-22] MEDS ORDERED: SACUBITRIL/VALSARTAN 1 EACH TABLET PO SCH (17:00)
--- NOTE | 2022-12-22 18:01 | NUR ---
RN CLOSING NOTES PT IS STABLE, VITALS STABLE, ALL DUE MEDICATIONS GIVEN, NO COMPLAINT OF PAIN AT THIS TIME OR SOB. ALL BELONGINGS SENT W/PT. REPORT GIVEN TO VERÓNICA SIMEON FOR CONTINUATION OF CARE.
--- NOTE | 2022-12-22 19:15 | NUR ---
RN NOTE REPORT RECEIVED FROM VERÓNICA SIMEON, PT IN BED, AAO X 4, SATURATION AT 95% ON 4-5L VIA NC, SR ON THE MONITOR, HR IS 97. IV LINE AT RWRIST 18G PATENT AND FLUSHING WELL, NO S/S OF INFECTION OR INFILTRATION. PT IS CONTINENT AND AMBULATORY, STEADY GAIT NOTED. SAFETY MEASURES IN PLACE, BED IS LOCKED AND AT LOWEST POSITION, CALL LIGHT WITHIN REACH OF PATIENT. WILL CONT TO MONITOR AND REASSESS.
[2022-12-22] MEDS: HOME MED MISCELLANEOUS PO SCH (19:23)
[2022-12-23] VITALS: BP 115/68
[2022-12-23] MEDS: IPRATROPIUM NEB FS 0.5 MG/2.5 ML AMPUL.NEB NEB SCH ×4 (01:30→19:26)
[2022-12-23] MEDS: ZOLPIDEM TARTRATE 10 MG TABLET PO PRN (01:44)
[2022-12-23] MEDS: BENZONATATE 100 MG CAPSULE PO PRN ×2 (02:02→22:24)
[2022-12-23] MEDS: VANCOMYCIN 1 GM in IV D5W 250 ML IV SCH (02:02)
[2022-12-23 04:00] VITALS: BP 132/75
[2022-12-23] MEDS: methylPREDNISolone SOD SUCC 40 MG/ML VIAL IV SCH ×3 (05:31→22:15)
[2022-12-23 06:28] LABS: HEMATOCRIT 36 % (39-51); HEMOGLOBIN 11.8 g/dL (13.5-17.5); LYMPHOCYTES # (AUTO) 0.8 K/uL (0.8-4.8); LYMPHOCYTES % (AUTO) 6.8 % (20.0-44.0); MEAN CORPUSCULAR HGB CONC 33 g/dl (31.0-36.0); MEAN CORPUSCULAR VOLUME 90 fL (80-96); MONOCYTES # (AUTO) 0.6 K/uL (0.1-1.30); MONOCYTES % (AUTO) 4.7 % (2.0-12.0); NEUTROPHILS # (AUTO) 10.7 K/uL (1.8-8.9); NEUTROPHILS % (AUTO) 88.5 % (43.0-81.0); PLATELET COUNT (AUTO) 97 K/uL (150-450); RED BLOOD CELL COUNT(AUTO) 3.98 MIL/uL (4.5-6.0); WHITE BLOOD COUNT (AUTO) 12.1 K/uL (4.3-11.0)
[2022-12-23 07:20] LABS: CALCIUM, SERUM 9.2 mg/dL (8.5-10.1); CARBON DIOXIDE 23 mmol/L (21-32); CHLORIDE 102 mmol/L (98-107); CREATININE 2.6 mg/dL (0.6-1.3); GLUCOSE 202 mg/dL (74-106); POTASSIUM 4.4 mmol/L (3.5-5.1); SODIUM SERUM 137 mmol/L (136-145)
[2022-12-23 07:24] LABS: UREA NITROGEN, BLOOD 95 mg/dL (7-18)
--- NOTE | 2022-12-23 07:30 | NUR ---
WILBERTO RN AM NOTE PT IN BED, AAO X 4, ON 3L O2 NASAL CANULA O2 SAT 93%. SHORT OF BREATH WHEN MOVING AND TALKING. RESPIRATION UNLABORED. NO DISTRESS. SR HR 77ON MONITOR, DENIES CHEST PAIN. WITH RT WRIST G 18 IV ACCESS, FLUSHES WELL. SITE CLEAR. PT IS CONTINENT AND AMBULATORY, STEADY GAIT NOTED. POC DISCUSSED, VERBALIZED UNDERSTANDING. SAFETY MEASURES IN PLACE, BED IS LOCKED AND AT LOWEST POSITION, CALL LIGHT WITHIN REACH OF PATIENT. WILL CONT TO MONITOR.
[2022-12-23] MEDS: PANTOPRAZOLE 40 MG TABLET.DR PO SCH (07:59)
[2022-12-23] MEDS: LEVOTHYROXINE SODIUM 137 MCG TABLET PO SCH (07:59)
[2022-12-23] MEDS: BLOOD SUGAR DIAGNOSTIC 1 EACH STRIP IN SCH ×4 (07:59→22:23)
[2022-12-23 08:00] VITALS: BP 113/41
[2022-12-23] MEDS: POTASSIUM CHLORIDE 20 MEQ TAB.PRT.SR PO SCH (08:33)
[2022-12-23] MEDS: ATORVASTATIN 10 MG TABLET PO SCH (08:33)
[2022-12-23] MEDS: LINAGLIPTIN 5 MG TABLET PO SCH (08:33)
[2022-12-23] MEDS: METFORMIN 500 MG TABLET PO SCH (08:33)
[2022-12-23] MEDS: HOME MED MISCELLANEOUS PO SCH ×2 (08:33→17:11)
[2022-12-23] MEDS: CARVEDILOL 6.25 MG TABLET PO SCH ×2 (08:34→17:10)
[2022-12-23] MEDS: ASPIRIN 81 MG TAB.CHEW PO SCH (08:36)
[2022-12-23] MEDS: HEPARIN SODIUM, PORCINE 5000 UNITS/1 ML VIAL SQ SCH ×2 (08:36→17:11)
[2022-12-23] MEDS: INSULIN REGULAR, HUMAN 100 UNIT/ML 3 ML VIAL SQ PRN ×3 (08:38→22:25)
[2022-12-23] MEDS ORDERED: ASPIRIN 81 MG TAB.CHEW PO SCH (09:00)
--- NOTE | 2022-12-23 09:30 | NUR ---
RN NOTES DUE MEDS GIVEN
[2022-12-23 12:00] VITALS: BP 106/67
[2022-12-23] MEDS: IV D5/ 0.9% NACL 1,000 ML IV PRN (12:12)
[2022-12-23] MEDS: CODEINE/PROMETHAZINE HCL 5 ML UDC PO PRN (13:51)
[2022-12-23] MEDS: LEVOFLOXACIN 750 MG /D5W 150ML 750 MG in PREMIX 1 EA IV SCH (15:41)
[2022-12-23 16:00] VITALS: BP 99/62
[2022-12-23 17:18] LABS: LYMPHOCYTES % (MANUAL) 10 % (16-48); MONOCYTES % (MANUAL) 7 % (0-11.0); NEUTROPHILS % (MANUAL) 83 (42-76)
--- NOTE | 2022-12-23 18:31 | NUR ---
RN NOTES ALL NEEDS MET AT THIS TIME PT RESTING COMFORTABLY. VS STABLE ONGOING IVF AT 60 ML/HR SAFETY MEASURE IN PLACE WILL ENDORSE TO NEXT SHIFT FOR RIGOBERTO.
--- NOTE | 2022-12-23 18:36 | NUR ---
RN NOTES PATIENT'S GAVE PHONE NUMBER OF HOME HEALTH [facility] - [phone]
--- NOTE | 2022-12-23 19:15 | NUR ---
RN NOTE REPORT RECEIVED FROM ASHLEIGH SIMEON, PT IN BED, AAO X 4, SATURATION AT 100% ON ROOM AIR, SR ON THE MONITOR, HR IS 97. IV LINE AT RWRIST 18G PATENT AND FLUSHING WELL, NO S/S OF INFECTION OR INFILTRATION WITH D5NS AT 60 ML/HR. PT IS CONTINENT AND AMBULATORY, STEADY GAIT NOTED. SAFETY MEASURES IN PLACE, BED IS LOCKED AND AT LOWEST POSITION, CALL LIGHT WITHIN REACH OF PATIENT. WILL CONT TO MONITOR AND REASSESS.
[2022-12-23 20:00] VITALS: BP 129/88
[2022-12-24] VITALS: BP 142/71
[2022-12-24] MEDS: ZOLPIDEM TARTRATE 10 MG TABLET PO PRN (00:36)
[2022-12-24] MEDS: IPRATROPIUM NEB FS 0.5 MG/2.5 ML AMPUL.NEB NEB SCH ×4 (01:54→19:47)
[2022-12-24 04:00] VITALS: BP 117/58
[2022-12-24] MEDS: methylPREDNISolone SOD SUCC 40 MG/ML VIAL IV SCH ×3 (04:14→20:57)
[2022-12-24] MEDS: CODEINE/PROMETHAZINE HCL 5 ML UDC PO PRN (04:17)
--- NOTE | 2022-12-24 04:29 | NUR ---
RN NOTE PATIENT NOTED WITH HR SUSTAINING AT 140-150, ST WITH PAC/PVC'S, PT ASYMPTOMATIC. DR ALVAREZ WAS NOTIFIED, ORDER RECEIVED FOR STAT EKG.
--- NOTE | 2022-12-24 05:05 | NUR ---
RN NOTE EKG RESULTED: AFIB WITH RVR AT RATE OF 147. DR ALVAREZ WAS NOTIFIED, ORDER RECEIVED FOR METOPROLOL 5 MG IVP X 1
[2022-12-24] MEDS: IV D5/ 0.9% NACL 1,000 ML IV PRN (05:13)
[2022-12-24] MEDS ORDERED: METOPROLOL TARTRATE INJ 5 MG/5 ML AMPUL IVP ONE (05:30)
--- NOTE | 2022-12-24 05:49 | NUR ---
RN NOTE PT CONVERTED BACK TO SINUS, NOW SR - ST AT 90-100'S, HOWEVER, NOW COMPLAINING OF L SIDED CHEST PAIN. DR ALVAREZ WAS NOTIFIED, ORDERS RECEIVED FOR NITROGLYCERIN 0.4 MG SL
[2022-12-24] MEDS: NITROGLYCERIN 0.4 MG/TAB BOTTLE SL PRN ×2 (06:08→06:13)
--- NOTE | 2022-12-24 06:29 | NUR ---
RN NOTE NO RELIEF WITH PAIN AFTER NITROGLYCERIN 0.4 MG SL X [address] ALVAREZ NOTIFIED, ORDER RECEIVED FRO MORPHINE 2 MG X 1, AND STAT TROPONIN
[2022-12-24 06:48] LABS: HEMATOCRIT 34 % (39-51); HEMOGLOBIN 11.3 g/dL (13.5-17.5); LYMPHOCYTES # (AUTO) 0.7 K/uL (0.8-4.8); MEAN CORPUSCULAR HGB CONC 33 g/dl (31.0-36.0); MEAN CORPUSCULAR VOLUME 90 fL (80-96); MONOCYTES # (AUTO) 0.3 K/uL (0.1-1.30); MONOCYTES % (AUTO) 2.9 % (2.0-12.0); NEUTROPHILS # (AUTO) 8.7 K/uL (1.8-8.9); NEUTROPHILS % (AUTO) 90.1 % (43.0-81.0); PLATELET COUNT (AUTO) 114 K/uL (150-450); RED BLOOD CELL COUNT(AUTO) 3.81 MIL/uL (4.5-6.0); WHITE BLOOD COUNT (AUTO) 9.7 K/uL (4.3-11.0)
--- NOTE | 2022-12-24 06:53 | NUR ---
RN NOTE PODIATRIST ORTHOPEDIC AT BEDSIDE FOR STAT TROPONIN
[2022-12-24] MEDS ORDERED: MORPHINE SULFATE INJ 2 MG/ML DISP.SYRIN IV ONE (07:00)
[2022-12-24 07:24] LABS: CALCIUM, SERUM 9.3 mg/dL (8.5-10.1); CARBON DIOXIDE 17 mmol/L (21-32); CHLORIDE 102 mmol/L (98-107); CREATININE 2.4 mg/dL (0.6-1.3); GLUCOSE 236 mg/dL (74-106); MAGNESIUM 2.1 mg/dL (1.8-2.4); PHOSPHORUS 3.6 mg/dL (2.5-4.9); POTASSIUM 3.7 mmol/L (3.5-5.1); SODIUM SERUM 135 mmol/L (136-145)
[2022-12-24 07:25] LABS: UREA NITROGEN, BLOOD 96 mg/dL (7-18)
[2022-12-24 08:00] VITALS: BP 121/69
--- NOTE | 2022-12-24 08:03 | NUR ---
terell rn note dr syed at beside nitrified that troponin level 209, on heparin sq bid also examined patient on 2l nc saturation 95% , on tele monitor sr with pac hr 97 , rt wrist hl intact and flushed well , bed in lowest and locked position , will cont to monitor closely
[2022-12-24] MEDS: ATORVASTATIN 10 MG TABLET PO SCH (08:25)
[2022-12-24] MEDS: PANTOPRAZOLE 40 MG TABLET.DR PO SCH (08:26)
[2022-12-24] MEDS: POTASSIUM CHLORIDE 20 MEQ TAB.PRT.SR PO SCH (08:26)
[2022-12-24] MEDS: ASPIRIN 81 MG TAB.CHEW PO SCH (08:26)
[2022-12-24] MEDS: CARVEDILOL 6.25 MG TABLET PO SCH ×2 (08:26→17:19)
[2022-12-24] MEDS: LEVOTHYROXINE SODIUM 137 MCG TABLET PO SCH (08:26)
[2022-12-24] MEDS: LINAGLIPTIN 5 MG TABLET PO SCH (08:26)
[2022-12-24] MEDS: HEPARIN SODIUM, PORCINE 5000 UNITS/1 ML VIAL SQ SCH ×2 (08:28→17:19)
[2022-12-24] MEDS: INSULIN REGULAR, HUMAN 100 UNIT/ML 3 ML VIAL SQ PRN ×4 (08:29→23:28)
[2022-12-24] MEDS: HOME MED MISCELLANEOUS PO SCH ×2 (08:41→17:19)
[2022-12-24] MEDS: BLOOD SUGAR DIAGNOSTIC 1 EACH STRIP IN SCH ×4 (08:45→22:59)
--- NOTE | 2022-12-24 09:30 | NUR ---
WILBERTO RN NOTE SEEN BY DR KOTHARI REPORTED TO THAT PATIENT AMBULATED WELL WITH COUNSELING DEPARTMENT CHAIR AROUND HIS ROOM
--- NOTE | 2022-12-24 10:00 | NUR ---
FREIGHT BRAKEMAN NOTE TYLENOL PO GIVEN ORDER FOR CHEST PAIN
[2022-12-24] MEDS: FUROSEMIDE 20 MG/2 ML VIAL IV SCH ×2 (10:37→17:19)
[2022-12-24 12:00] VITALS: BP 136/60
--- NOTE | 2022-12-24 12:47 | NUR ---
WILBERTO RN NOTE STOOL FOR PB COLLECTED ALSO AMBULATED IN WHOLE WAY WELL WITH STAND BY ASSISTANCE
--- NOTE | 2022-12-24 14:53 | NUR ---
returned telephone equipment appraiser note see by pt , able to ambulate well , also new hl on lt fa inserted with good blood return ,cont on ivf as ordered ,family at bedside
[2022-12-24 14:56] LABS: OCCULT BLOOD STOOL POSITIVE (NEGATIVE)
[2022-12-24] MEDS: VANCOMYCIN 1 GM in IV D5W 250 ML IV SCH (14:57)
[2022-12-24 16:00] VITALS: BP 118/76
--- NOTE | 2022-12-24 16:30 | NUR ---
WILBERTO RN NOTE REPORTED TO DR KOTHARI RESULT STOOL FOR OB POSITIVE WITH ORDER CBC AND PROTONIX IF NOT ORDERED WILL F\U
--- NOTE | 2022-12-24 18:37 | NUR ---
WILBERTO RN NOTE PATIENT RESTING COMFORTABLY IN BED , ON IVF ORDERED NOT IN DISTRESS , WILL CONT TO MONITOR
--- NOTE | 2022-12-24 19:20 | NUR ---
RN OPENING NOTES PATIENT RECEIVED IN BED, AWAKE, A/O X 4. ON NASAL CANULA @ 2LPM SATING AT 95%. RESPIRATORY EVEN AND UNLABORED, NO SOB NOTED, NO S/S DISTRESS, AFEBRILE, NO S/S OF DISTRESS NOTED. NOTED WITH LEFT FOREARM PERIPHERAL LINE, FLUSHED WITH NS, NO S/S OF INFILTRATION NOTED. RUNNING WITH D5NS @60 ML/HR. ALL SAFETY PRECAUTION PROVIDED. BED IN LOWEST POSITION, LOCKED. BED ALARM ARMED. CALL LIGHT WITHIN REACH, SIDE RAILS UP X3. WILL CONTINUE TO MONITOR.
[2022-12-24 20:00] VITALS: BP 124/70
[2022-12-25] VITALS: BP 124/75
[2022-12-25] MEDS: IV D5/ 0.9% NACL 1,000 ML IV PRN ×2 (00:46→23:53)
[2022-12-25] MEDS: IPRATROPIUM NEB FS 0.5 MG/2.5 ML AMPUL.NEB NEB SCH ×4 (02:36→19:48)
[2022-12-25 04:00] VITALS: BP 126/81
[2022-12-25] MEDS: BENZONATATE 100 MG CAPSULE PO PRN ×2 (05:58→18:36)
[2022-12-25] MEDS: methylPREDNISolone SOD SUCC 40 MG/ML VIAL IV SCH ×3 (05:59→22:08)
[2022-12-25 06:42] LABS: HEMATOCRIT 32 % (39-51); HEMOGLOBIN 10.8 g/dL (13.5-17.5); LYMPHOCYTES # (AUTO) 0.6 K/uL (0.8-4.8); LYMPHOCYTES % (AUTO) 6.3 % (20.0-44.0); MEAN CORPUSCULAR HGB CONC 33 g/dl (31.0-36.0); MEAN CORPUSCULAR VOLUME 90 fL (80-96); MONOCYTES # (AUTO) 0.5 K/uL (0.1-1.30); MONOCYTES % (AUTO) 4.8 % (2.0-12.0); NEUTROPHILS # (AUTO) 9.1 K/uL (1.8-8.9); NEUTROPHILS % (AUTO) 88.9 % (43.0-81.0); PLATELET COUNT (AUTO) 121 K/uL (150-450); RED BLOOD CELL COUNT(AUTO) 3.62 MIL/uL (4.5-6.0); WHITE BLOOD COUNT (AUTO) 10.2 K/uL (4.3-11.0)
[2022-12-25 07:06] LABS: CALCIUM, SERUM 8.7 mg/dL (8.5-10.1); CARBON DIOXIDE 20 mmol/L (21-32); CHLORIDE 107 mmol/L (98-107); CREATININE 2.1 mg/dL (0.6-1.3); GLUCOSE 216 mg/dL (74-106); POTASSIUM 4.3 mmol/L (3.5-5.1); SODIUM SERUM 138 mmol/L (136-145); UREA NITROGEN, BLOOD 77 mg/dL (7-18)
--- NOTE | 2022-12-25 07:24 | NUR ---
RN CLOSING NOTE A/OX4. SINUS RHTYHM ON THE MONITOR. IVF RUNNING. PRN COUGH MEDICINE GIVEN. PLAN TO AMBULATE PATIENT.
[2022-12-25 08:00] VITALS: BP 133/70
[2022-12-25 08:09] LABS: LYMPHOCYTES % (MANUAL) 9 % (16-48); MONOCYTES % (MANUAL) 6 % (0-11.0); NEUTROPHILS % (MANUAL) 85 (42-76)
[2022-12-25] MEDS: BLOOD SUGAR DIAGNOSTIC 1 EACH STRIP IN SCH ×4 (08:19→22:17)
[2022-12-25] MEDS: LEVOTHYROXINE SODIUM 137 MCG TABLET PO SCH (08:19)
[2022-12-25] MEDS: PANTOPRAZOLE 40 MG TABLET.DR PO SCH (08:19)
[2022-12-25] MEDS: INSULIN REGULAR, HUMAN 100 UNIT/ML 3 ML VIAL SQ PRN ×4 (08:21→22:20)
[2022-12-25] MEDS: LINAGLIPTIN 5 MG TABLET PO SCH (08:49)
[2022-12-25] MEDS: ASPIRIN 81 MG TAB.CHEW PO SCH (08:49)
[2022-12-25] MEDS: ATORVASTATIN 10 MG TABLET PO SCH (08:49)
[2022-12-25] MEDS: FUROSEMIDE 20 MG/2 ML VIAL IV SCH ×2 (08:49→17:42)
[2022-12-25] MEDS: POTASSIUM CHLORIDE 20 MEQ TAB.PRT.SR PO SCH (08:49)
[2022-12-25] MEDS: CARVEDILOL 6.25 MG TABLET PO SCH ×2 (08:50→17:43)
[2022-12-25] MEDS: HOME MED MISCELLANEOUS PO SCH ×2 (09:07→17:49)
[2022-12-25] MEDS: CODEINE/PROMETHAZINE HCL 5 ML UDC PO PRN ×2 (11:48→22:12)
[2022-12-25 12:00] VITALS: BP 144/61
[2022-12-25] MEDS: LEVOFLOXACIN 750 MG /D5W 150ML 750 MG in PREMIX 1 EA IV SCH (15:05)
[2022-12-25 16:00] VITALS: BP 102/70
[2022-12-25] MEDS: AMIODARONE 450 MG in IV D5W 241 ML IV PRN ×2 (16:48→22:41)
[2022-12-25] MEDS ORDERED: AMIODARONE 150 MG in IV D5W 100 ML IV ONE (17:00)
--- NOTE | 2022-12-25 19:00 | NUR ---
RN notes: pt complained of chest pain , HR 130 paged the program director/air personality flight dynamicist, went back to pt he verbalized his chest pain resolved by itself
--- NOTE | 2022-12-25 19:36 | NUR ---
rn notes: pt in bed denied chest pain at this time, no sob noted. on amiodarone drip 1 mg/hr running via left forearm saline lock, report given to circuit design engineer rn, on iv fluid running on right forearm saline lock, all due meds were given as ordered,kept clean and dry and comfortable, endorsed to circuit design engineer rn for cher
--- NOTE | 2022-12-25 19:40 | NUR ---
RECEIVED CALL BACK FROM HOUSE DESIGNER HANDICRAFTS TEACHER DR WILSON, PER PRIOR NURSE SHE PAGED BECAUSE PATIENT WAS HAVING CHEST PAIN, WHEN SUMMONED TO PT'S ROOM AND RECEIVED REPORT FROM HER, PATIENT DENIES ANY PAIN, JHE STAYED THAT HE RESOLVED, 2 SONS AT BEDSIDE, REPORT TO DR JEFFREY THAT PT CHEST PAIN RESOLVED AND ANYWAY, HE HAS PRN NITRO JUST IN CASE, AND ASKED IF HE WANTS TO ADD MORPHINE PRN IN CASE PT C/O AGAIN OF CHEST PAIN, PER HOUSE DESIGNER, JUST GIVE NITRO IF HE C/O CHEST PAIN AND DO EKG, NOTED.
[2022-12-25 20:00] VITALS: BP 151/67
--- NOTE | 2022-12-25 21:55 | NUR ---
PATIENT GOT CONVERTED FROM A-FIB TO NSR, WITH HR IN 80S AT THIS TIME, WILL CONTINUE TO MONITOR CLOSELY.
[2022-12-25] MEDS: ZOLPIDEM TARTRATE 10 MG TABLET PO PRN (22:29)
[2022-12-25] MEDS: ALBUTEROL FS 2.5 MG/3 ML VIAL.NEB NEB PRN (23:50)
[2022-12-26] VITALS: BP 149/72
[2022-12-26] MEDS: IPRATROPIUM NEB FS 0.5 MG/2.5 ML AMPUL.NEB NEB SCH ×4 (01:30→19:58)
[2022-12-26] MEDS: BENZONATATE 100 MG CAPSULE PO PRN ×2 (02:31→10:00)
[2022-12-26] MEDS: ALBUTEROL FS 2.5 MG/3 ML VIAL.NEB NEB PRN (03:39)
[2022-12-26 04:00] VITALS: BP 128/70
[2022-12-26] MEDS: CODEINE/PROMETHAZINE HCL 5 ML UDC PO PRN (04:48)
[2022-12-26] MEDS: methylPREDNISolone SOD SUCC 40 MG/ML VIAL IV SCH ×3 (04:48→22:59)
--- NOTE | 2022-12-26 06:27 | NUR ---
END OF SHIFT, PATIENT AWAKE A/O X4, SITTING IN BED, AT 2LPM VIA NC, NO SOB/ACUTE DISTRESS NOTED, PERSISTENT COUGH, PRN MEDICATION FOR COUGH ADMINISTERED X3, WITH NO SUCCESS. CONT ON AMIODARONE DRIP AT 0.5MG, WELL IVF ORDERED, NSR IN TELE MONITOR GOT CONVERTED LAST NIGHT, WILL FOLLOW WITH CARDIOLOGY IN AM, FEW HOURS OF SLEEP DUE TO PERSISTENT COUGH, BREATHING TX ORDERED, OTHERWISE MAINTAINED O2 SAT LEVEL >93%, CALL LIGHT W/I REACH, S/R OF BED X2, WILL ENDORSE CONTINUITY OF CARE TO ONCOMING NURSE, UPDATE GIVEN TO FRANCO EISENBERG.
[2022-12-26 06:52] LABS: HEMATOCRIT 32 % (39-51); HEMOGLOBIN 10.6 g/dL (13.5-17.5); LYMPHOCYTES # (AUTO) 0.5 K/uL (0.8-4.8); LYMPHOCYTES % (AUTO) 4.9 % (20.0-44.0); MEAN CORPUSCULAR HGB CONC 33 g/dl (31.0-36.0); MEAN CORPUSCULAR VOLUME 90 fL (80-96); MONOCYTES # (AUTO) 0.6 K/uL (0.1-1.30); MONOCYTES % (AUTO) 5.2 % (2.0-12.0); NEUTROPHILS # (AUTO) 9.7 K/uL (1.8-8.9); NEUTROPHILS % (AUTO) 89.9 % (43.0-81.0); PLATELET COUNT (AUTO) 132 K/uL (150-450); RED BLOOD CELL COUNT(AUTO) 3.52 MIL/uL (4.5-6.0); WHITE BLOOD COUNT (AUTO) 10.7 K/uL (4.3-11.0)
[2022-12-26 06:53] LABS: CALCIUM, SERUM 8.2 mg/dL (8.5-10.1); CARBON DIOXIDE 19 mmol/L (21-32); CHLORIDE 106 mmol/L (98-107); CREATININE 2.1 mg/dL (0.6-1.3); GLUCOSE 270 mg/dL (74-106); POTASSIUM 4.4 mmol/L (3.5-5.1); SODIUM SERUM 137 mmol/L (136-145); UREA NITROGEN, BLOOD 70 mg/dL (7-18)
[2022-12-26 08:00] VITALS: BP 127/68
--- NOTE | 2022-12-26 08:00 | NUR ---
WILBERTO RN NOTE PATIENT AWAKE A/O X4, SITTING IN BED, AT 2LPM VIA NC, NO SOB/ACUTE DISTRESS NOTED, PERSISTENT COUGH, PRN MEDICATION FOR COUGH ADMINISTERED X3, WITH NO SUCCESS. CONT ON AMIODARONE DRIP AT 0.5MG, WELL IVF ORDERED, NSR IN TELE MONITOR SR HR [address] COLLINS ALSO PATIENT WITH SEVERE DRY COUGH ,ON IVF ORDERED, AND ON BREATHING TX BED IN LOWEST AND LOCKED POSITION
[2022-12-26] MEDS: PANTOPRAZOLE 40 MG TABLET.DR PO SCH (08:03)
[2022-12-26] MEDS: LEVOTHYROXINE SODIUM 137 MCG TABLET PO SCH (08:03)
[2022-12-26] MEDS: FUROSEMIDE 20 MG/2 ML VIAL IV SCH (08:08)
[2022-12-26] MEDS: BLOOD SUGAR DIAGNOSTIC 1 EACH STRIP IN SCH ×4 (08:15→17:26)
[2022-12-26] MEDS: INSULIN REGULAR, HUMAN 100 UNIT/ML 3 ML VIAL SQ PRN ×4 (08:15→23:11)
[2022-12-26] MEDS: CARVEDILOL 6.25 MG TABLET PO SCH ×2 (08:26→16:31)
[2022-12-26] MEDS: LINAGLIPTIN 5 MG TABLET PO SCH (08:27)
[2022-12-26] MEDS: ASPIRIN 81 MG TAB.CHEW PO SCH (08:27)
[2022-12-26] MEDS: POTASSIUM CHLORIDE 20 MEQ TAB.PRT.SR PO SCH (08:27)
[2022-12-26] MEDS: HOME MED MISCELLANEOUS PO SCH ×2 (08:29→16:30)
[2022-12-26] MEDS: ATORVASTATIN 10 MG TABLET PO SCH (08:29)
[2022-12-26] MEDS ORDERED: AMIODARONE HCL 200 MG TABLET PO SCH (09:00)
--- NOTE | 2022-12-26 09:25 | NUR ---
MUSIC THEORY PROFESSOR NOTE PATIENT SEEN BYDR KOTHARI NOTIFIED THAT HAS SEVERE DRY COUGH NO NEW ORDER AT THIS TIME
[2022-12-26] MEDS: APIXABAN 2.5 MG TABLET PO SCH ×2 (10:01→16:31)
--- NOTE | 2022-12-26 10:03 | NUR ---
ELDERLY CAREGIVER NOTE C\ COUGH TESSALON PO GIVEN ORDERED
--- NOTE | 2022-12-26 10:18 | NUR ---
WILBERTO RN NOTE SPOKE WITH DR KARINA PENA TO COMPLETE AMIO DRIP AT 5 PM AND START PO AMIODARONE AT 9 PMM WILL F\U
[2022-12-26 10:22] LABS: BASOPHILS % (MANUAL) 0 % (0.0-2.0); EOSINOPHILS % (MANUAL) 0 % (0-4); LYMPHOCYTES % (MANUAL) 7 % (16-48); MONOCYTES % (MANUAL) 9 % (0-11.0); NEUTROPHILS % (MANUAL) 84 (42-76)
[2022-12-26] MEDS: AMIODARONE 450 MG in IV D5W 241 ML IV PRN (11:29)
[2022-12-26 12:03] VITALS: BP 120/71
--- NOTE | 2022-12-26 12:30 | NUR ---
INCIDENT RESPONSE CONSULTANT NOTE UP ON CHAIR ,NOT IN DISTRESS Addendum: 12/26/22 at 1308 by ARPITA REGAN RN [id number] BACK T BED , ALL NEEDS ATTENDED CONT ON DAVY BRICEÑO
--- NOTE | 2022-12-26 14:36 | NUR ---
terell rn note cont on amiodarone drip ,new hl on rt fa palmira 20 inserted with good blood return
--- NOTE | 2022-12-26 15:39 | NUR ---
terell arias note ambulated in hallway with stand by assistance tolerated well Addendum: 12/26/22 at 1558 by ARPITA REGAN RN sitting up on chair tolerated well ,saturation 95% not in distress
[2022-12-26 16:00] VITALS: BP 125/60
--- NOTE | 2022-12-26 18:14 | NUR ---
WILBERTO RN NOTE PATIENT IN BED ALL NEEDS ATTENDED ON2LNC NO SOB NOTED AT THIS TIME, ON TELEMONITOR SR HR 76, ABLE T EAT DINNER SELF, LT AC AND RT FA HL INTACT AND FLUSHED WELL ,AMIO DRIP DONE TO INFUSED , BED IN LOWEST AND LOCKED POSITION, CALL LIGHT WITHIN REACH , WILL CONT TO MONITOR
[2022-12-26 20:00] VITALS: BP 125/60
--- NOTE | 2022-12-26 20:00 | NUR ---
WILBERTO RN NOTE PT IN BED AWAKE. A/O X 4, NO SOB, NO DISTRESS OR DISCOMFORT NOTED. DENIES PAIN. ON O2 2L VIA N/C O2 SAT 97%. ON TELE SR WITH BBB HR 90. RFA AND LAC #20 G SL INTACT AND PATENT. VSS. SIDE RAILS UP X 2 AND CALL LIGHT WITHIN REACH. CONTINUE TO MONITOR HIM.
[2022-12-26] MEDS: AMIODARONE HCL 200 MG TABLET PO SCH (23:06)
[2022-12-27] VITALS: BP 142/74
[2022-12-27] MEDS: CODEINE/PROMETHAZINE HCL 5 ML UDC PO PRN (00:24)
[2022-12-27] MEDS: ZOLPIDEM TARTRATE 10 MG TABLET PO PRN (01:22)
[2022-12-27] MEDS: IPRATROPIUM NEB FS 0.5 MG/2.5 ML AMPUL.NEB NEB SCH ×4 (01:30→19:55)
[2022-12-27] MEDS: ALBUTEROL FS 2.5 MG/3 ML VIAL.NEB NEB PRN ×3 (03:21→16:10)
[2022-12-27] MEDS: methylPREDNISolone SOD SUCC 40 MG/ML VIAL IV SCH (05:07)
[2022-12-27 06:00] VITALS: BP 140/84
--- NOTE | 2022-12-27 06:50 | NUR ---
WILBERTO RN NOTE PT IN BED AWAKE. NO DISTRESS OR DISCOMFORT NOTED. DENIES PAIN. ON TELE SR WITH BBB HR 75. WILL ENDORSE TO DAY SHIFT NURSE FOR CONTINUE TO CARE.
[2022-12-27 07:22] LABS: BASOPHILS % (AUTO) 0.1 % (0.0-2.0); HEMATOCRIT 30 % (39-51); HEMOGLOBIN 9.8 g/dL (13.5-17.5); LYMPHOCYTES # (AUTO) 0.5 K/uL (0.8-4.8); LYMPHOCYTES % (AUTO) 4.9 % (20.0-44.0); MEAN CORPUSCULAR HGB CONC 33 g/dl (31.0-36.0); MEAN CORPUSCULAR VOLUME 90 fL (80-96); MONOCYTES # (AUTO) 0.5 K/uL (0.1-1.30); MONOCYTES % (AUTO) 4.5 % (2.0-12.0); NEUTROPHILS # (AUTO) 9.7 K/uL (1.8-8.9); NEUTROPHILS % (AUTO) 90.5 % (43.0-81.0); PLATELET COUNT (AUTO) 142 K/uL (150-450); RED BLOOD CELL COUNT(AUTO) 3.33 MIL/uL (4.5-6.0); WHITE BLOOD COUNT (AUTO) 10.7 K/uL (4.3-11.0)
[2022-12-27] MEDS: LEVOTHYROXINE SODIUM 137 MCG TABLET PO SCH (07:30)
[2022-12-27] MEDS: PANTOPRAZOLE 40 MG TABLET.DR PO SCH (07:30)
[2022-12-27 07:40] LABS: CALCIUM, SERUM 8.4 mg/dL (8.5-10.1); CARBON DIOXIDE 20 mmol/L (21-32); CHLORIDE 106 mmol/L (98-107); GLUCOSE 245 mg/dL (74-106); POTASSIUM 4.3 mmol/L (3.5-5.1); SODIUM SERUM 136 mmol/L (136-145); UREA NITROGEN, BLOOD 67 mg/dL (7-18)
[2022-12-27] MEDS: BLOOD SUGAR DIAGNOSTIC 1 EACH STRIP IN SCH ×4 (07:45→22:10)
[2022-12-27] MEDS: INSULIN REGULAR, HUMAN 100 UNIT/ML 3 ML VIAL SQ PRN ×4 (07:52→22:12)
[2022-12-27 08:00] VITALS: BP 140/67
[2022-12-27] MEDS: AMIODARONE HCL 200 MG TABLET PO SCH ×2 (08:26→17:18)
[2022-12-27] MEDS: ASPIRIN 81 MG TAB.CHEW PO SCH (08:26)
[2022-12-27] MEDS: LINAGLIPTIN 5 MG TABLET PO SCH (08:26)
[2022-12-27] MEDS: APIXABAN 2.5 MG TABLET PO SCH ×2 (08:27→17:19)
[2022-12-27] MEDS: ATORVASTATIN 10 MG TABLET PO SCH (08:27)
[2022-12-27] MEDS: CARVEDILOL 6.25 MG TABLET PO SCH ×2 (08:27→17:18)
[2022-12-27] MEDS: HOME MED MISCELLANEOUS PO SCH ×2 (08:29→17:17)
[2022-12-27] MEDS ORDERED: PRED50TA PO (10:42)
[2022-12-27] MEDS ORDERED: AMIO200T7 PO (10:42)
[2022-12-27] MEDS ORDERED: APIX2.5T PO (10:42)
[2022-12-27] MEDS: BENZONATATE 100 MG CAPSULE PO PRN ×2 (11:02→17:17)
[2022-12-27] MEDS: predniSONE 20 MG TABLET PO SCH (11:03)
[2022-12-27 12:00] VITALS: BP 130/64
--- NOTE | 2022-12-27 12:30 | NUR ---
DR. ZURITA DISCHARGED THE PATIENT, BUT ELGIN PATIENT'S SON PUT APPEAL SO PATIENT CAN STAY ONE MORE NIGHT.
--- NOTE | 2022-12-27 12:51 | NUR ---
PT. SON APPEAL DISCHARGE MD AND CM AWARE.
[2022-12-27 16:00] VITALS: BP 134/76
--- NOTE | 2022-12-27 19:00 | NUR ---
RN CLOSING NOTE NOTE PT IN BED AWAKE. NO DISTRESS OR DISCOMFORT NOTED. DENIES PAIN. ON TELE SR WITH BBB HR 81. WILL ENDORSE TO THE PERSONNEL RECORDS CLERK NURSE FOR CONTINUE TO CARE. ALL SAFETY PRECAUTIONS IMPLEMENTED. PATIENT IS DISCHARGED BUT WILL STAY ONE MORE NIGHT PER HIS SON'S REQUEST
--- NOTE | 2022-12-27 19:40 | NUR ---
RN OPENING NOTE RECEIVED PATIENT IN BED WITH FAMILY AT BEDSIDE, AAO X4, O2 VIA NC AT 2L, O2 SAT 97%. NO SOB/DISTRESS NOTED. ON TELE MONITOR SHOWING SR WITH BBB HR 81. SAFETY PRECAUTIONS IN PLACE: BED LOCKED AND IN LOWEST POSITION, SIDE RAILS UP X2, CALL LIGHT WITHIN REACH.
[2022-12-27 20:00] VITALS: BP 138/77
[2022-12-28] VITALS: BP 133/66
[2022-12-28] MEDS: ZOLPIDEM TARTRATE 10 MG TABLET PO PRN (00:23)
--- NOTE | 2022-12-28 00:29 | NUR ---
RN NOTE PATIENT COMPLAINED OF NOT BEING ABLE TO SLEEP AND ASKED FOR A SLEEPING PILL. AMBIEN 5MG ADMINISTERED.
[2022-12-28] MEDS: IPRATROPIUM NEB FS 0.5 MG/2.5 ML AMPUL.NEB NEB SCH ×4 (01:15→20:01)
[2022-12-28 04:00] VITALS: BP 123/57
--- NOTE | 2022-12-28 06:58 | NUR ---
RN CLOSING NOTE PATIENT IN BED, AAO X4, O2 VIA NC AT 2L, O2 SAT 98%. NO SOB/DISTRESS NOTED. ON TELE MONITOR SHOWING SR WITH BBB HR 80. SAFETY PRECAUTIONS IN PLACE: BED LOCKED AND IN LOWEST POSITION, SIDE RAILS UP X2, CALL LIGHT WITHIN REACH.
--- NOTE | 2022-12-28 07:05 | NUR ---
RN OPENING NOTE PATIENT IN BED, AWAKE, A/O X 4. ON NASAL CANULA @ 2LPM SATING AT 95%. RESPIRATORY EVEN AND UNLABORED, NO SOB NOTED. IV ACCESS LEFT FOREARM,FLUSHES WELL. PT IS AMBULATORY, BPR. SAFETY PRECAUTION IMPLEMENTED, BED IN LOWEST POSITION, LOCKED. CALL LIGHT WITHIN REACH, WILL CONTINUE TO MONITOR.
[2022-12-28] MEDS: PANTOPRAZOLE 40 MG TABLET.DR PO SCH (07:16)
[2022-12-28] MEDS: LEVOTHYROXINE SODIUM 137 MCG TABLET PO SCH (07:16)
[2022-12-28] MEDS: INSULIN REGULAR, HUMAN 100 UNIT/ML 3 ML VIAL SQ PRN ×4 (07:36→22:18)
[2022-12-28] MEDS: BLOOD SUGAR DIAGNOSTIC 1 EACH STRIP IN SCH ×4 (07:42→22:18)
[2022-12-28 08:00] VITALS: BP 102/56
[2022-12-28] MEDS: ASPIRIN 81 MG TAB.CHEW PO SCH (08:12)
[2022-12-28] MEDS: ATORVASTATIN 10 MG TABLET PO SCH (08:13)
[2022-12-28] MEDS: predniSONE 20 MG TABLET PO SCH (08:13)
[2022-12-28] MEDS: AMIODARONE HCL 200 MG TABLET PO SCH ×2 (08:14→17:09)
[2022-12-28] MEDS: LINAGLIPTIN 5 MG TABLET PO SCH (08:14)
[2022-12-28] MEDS: CARVEDILOL 6.25 MG TABLET PO SCH ×2 (08:14→17:10)
[2022-12-28] MEDS: HOME MED MISCELLANEOUS PO SCH ×2 (08:16→17:08)
[2022-12-28] MEDS: APIXABAN 2.5 MG TABLET PO SCH ×2 (08:16→17:10)
[2022-12-28 12:00] VITALS: BP 108/63
[2022-12-28] MEDS ORDERED: FUROSEMIDE 40 MG TABLET PO STA (12:47)
[2022-12-28 16:00] VITALS: BP 115/61
[2022-12-28] MEDS ORDERED: FUROSEMIDE 40 MG/4 ML VIAL IV STA (18:42)
--- NOTE | 2022-12-28 18:43 | NUR ---
PREPARED FOODS ASSOCIATE NOTE NOTED BOTH LOWER LEGS WITH SWELLING ORDERED 40 MG LASIX TIME
--- NOTE | 2022-12-28 18:55 | NUR ---
RN CLOSING NOTE PATIENT IN BED, AWAKE, A/O X 4, FAMILY AT BED SIDE, O2 VIA NASAL CANULA @ 2LPM SATING 95%. RESPIRATION EVEN AND UNLABORED, IV ACCESS LEFT FOREARM,FLUSHES WELL. PT IS AMBULATORY, BPR. SAFETY PRECAUTION IMPLEMENTED, BED IN LOWEST POSITION, LOCKED. CALL LIGHT WITHIN REACH, WILL INDORSE TO THE NEXT SHIFT FOR RIGOBERTO
[2022-12-28 20:00] VITALS: BP 123/66
--- NOTE | 2022-12-28 20:05 | NUR ---
RN OPENING NOTES; RECEIVED PT IN BED AAOX4 ABLE TO MAKE NEEDS KNOWN,ON RM AIR RICHAR WELL SAQT 98%,NOS SOB/DISTRESS NOTED,NO COMPLAIN OF PAIN/DISCOMFORT AT THIS TIME,IV ACCESS ON LFA 20G PATENT AND INTACT SL,SAFETY MEASURE IN PLACE,CALL LIGHT WITHIN REACH,WILL CONTINUE TO MONITOR.
[2022-12-29] VITALS: BP 125/69
[2022-12-29] MEDS: IPRATROPIUM NEB FS 0.5 MG/2.5 ML AMPUL.NEB NEB SCH ×4 (01:20→20:08)
--- NOTE | 2022-12-29 02:10 | NUR ---
RN NOTES; PATIENT COMPLAINED CANNOT SLEEP,ASKING FOR SLEEPING PILLS,TEXTED PHILL MENSAH NOEL.WITH A NEW ORDER,XANAX 0.5MG TAB PO X1.CARRIED OUT.
[2022-12-29] MEDS ORDERED: ALPRAZOLAM 1 MG TABLET PO ONE (02:30)
[2022-12-29 04:00] VITALS: BP 117/65
--- NOTE | 2022-12-29 06:18 | NUR ---
RN CLOSING NOTES; PATIENT IN BED AAOX4 ABLE TO MAKE NEEDS KNOWN,ON RM AIR RICHAR WELL SAT 99%,NO SOB/DISTRESS NOTED,NO COMPLAIN OF PAIN/DISCOMFORT DURING SHIFT,DUE MEDS GIVEN ORDER,ALL NEEDS ATTENDED,IV ACCESS ON LFA 20G PATENT AND INTACT SL,AMBULATORY WITH STEADY GAIT,SAFETY MEASURE IN PLACE,CALL LIGHT WITHIN REACH,WILL ENDORSED TO NEXT SHIFT.
[2022-12-29] MEDS: BLOOD SUGAR DIAGNOSTIC 1 EACH STRIP IN SCH ×4 (07:37→22:01)
[2022-12-29 08:00] VITALS: BP 118/72
[2022-12-29] MEDS: HOME MED MISCELLANEOUS PO SCH ×2 (08:04→17:10)
[2022-12-29] MEDS: AMIODARONE HCL 200 MG TABLET PO SCH ×2 (08:04→17:11)
[2022-12-29] MEDS: PANTOPRAZOLE 40 MG TABLET.DR PO SCH (08:05)
[2022-12-29] MEDS: ATORVASTATIN 10 MG TABLET PO SCH (08:05)
[2022-12-29] MEDS: APIXABAN 2.5 MG TABLET PO SCH ×2 (08:05→17:12)
[2022-12-29] MEDS: predniSONE 20 MG TABLET PO SCH (08:05)
[2022-12-29] MEDS: CARVEDILOL 6.25 MG TABLET PO SCH ×2 (08:05→17:12)
[2022-12-29] MEDS: ASPIRIN 81 MG TAB.CHEW PO SCH (08:06)
[2022-12-29] MEDS: LEVOTHYROXINE SODIUM 137 MCG TABLET PO SCH (08:06)
[2022-12-29] MEDS: LINAGLIPTIN 5 MG TABLET PO SCH (08:06)
[2022-12-29 08:17] LABS: BASOPHILS % (AUTO) 0.1 % (0.0-2.0); HEMATOCRIT 34 % (39-51); LYMPHOCYTES # (AUTO) 1.1 K/uL (0.8-4.8); LYMPHOCYTES % (AUTO) 6.4 % (20.0-44.0); MEAN CORPUSCULAR HGB CONC 33 g/dl (31.0-36.0); MEAN CORPUSCULAR VOLUME 90 fL (80-96); MONOCYTES % (AUTO) 5.9 % (2.0-12.0); NEUTROPHILS # (AUTO) 14.5 K/uL (1.8-8.9); NEUTROPHILS % (AUTO) 87.6 % (43.0-81.0); PLATELET COUNT (AUTO) 202 K/uL (150-450); RED BLOOD CELL COUNT(AUTO) 3.73 MIL/uL (4.5-6.0); WHITE BLOOD COUNT (AUTO) 16.6 K/uL (4.3-11.0)
[2022-12-29 08:21] LABS: CALCIUM, SERUM 8.2 mg/dL (8.5-10.1); CARBON DIOXIDE 20 mmol/L (21-32); CHLORIDE 107 mmol/L (98-107); GLUCOSE 132 mg/dL (74-106); SODIUM SERUM 139 mmol/L (136-145); UREA NITROGEN, BLOOD 65 mg/dL (7-18)
[2022-12-29 08:27] LABS: ALANINE AMINOTRANSFERASE 35 U/L (12-78); ALBUMIN 2.4 g/dL (3.4-5.0); ALKALINE PHOSPHATASE 36 U/L (46-116); ASPARTATE AMINOTRANSFERASE 16 U/L (15-37); BILIRUBIN,TOTAL 0.8 mg/dL (0.2-1.0); MAGNESIUM 2.1 mg/dL (1.8-2.4); PHOSPHORUS 3.9 mg/dL (2.5-4.9); TOTAL PROTEIN, SERUM 5.3 g/dL (6.4-8.2)
[2022-12-29] MEDS: FUROSEMIDE 40 MG TABLET PO SCH (08:30)
[2022-12-29 12:00] VITALS: BP 120/84
[2022-12-29] MEDS: INSULIN REGULAR, HUMAN 100 UNIT/ML 3 ML VIAL SQ PRN ×3 (12:20→22:02)
--- NOTE | 2022-12-29 14:16 | NUR ---
CM/RN Saturation Room air saturation 86%
[2022-12-29 16:00] VITALS: BP 102/58
--- NOTE | 2022-12-29 19:30 | NUR ---
ANESTHESIOLOGY MEDICAL DOCTOR OPENING NOTES - RECEIVED PATIENT RESTING IN BED. A/O X4. BREATHING EVEN AND NON-LABORED, ON O2 AT 2LPM VIA NASAL CANULA. NOT IN APPARENT DISTRESS. NO C/O PAIN AT THIS TIME. ON TELE MONITOR READING SINUS RHYTHM WITH OCCASIONAL PAC AT 77 BPM. HAS THE FF IV ACCESS: LEFT FOREARM #20G AND RIGHT FOREARM #22G, BOTH SALINE LOCKED. NO S/S OF INFILTRATION NOTED. SAFETY PRECAUTIONS IN PLACE: BED LOCKED AND IN LOW POSITION, SIDE RAILS UP X2, CALL LIGHT WITHIN REACH. WILL CONTINUE PLAN OF CARE.
[2022-12-29 20:00] VITALS: BP 121/68
[2022-12-30] VITALS: BP 113/63
--- NOTE | 2022-12-30 00:44 | NUR ---
NOTIFIED MARCO THAT PATIENT IS ASKING FOR SLEEPING PILL. HE ORDERED RESTORIL 15MG PO HS PRN. NOTED AND CARRIED OUT.
[2022-12-30] MEDS: TEMAZEPAM 15 MG CAPSULE PO PRN (00:56)
[2022-12-30] MEDS: IPRATROPIUM NEB FS 0.5 MG/2.5 ML AMPUL.NEB NEB SCH ×4 (01:15→20:00)
[2022-12-30] MEDS: BENZONATATE 100 MG CAPSULE PO PRN ×3 (02:51→21:40)
--- NOTE | 2022-12-30 02:53 | NUR ---
PATIENT COUGHING AND UNABLE TO SLEEP. GAVE PRN TESSALON 200MG. WILL MONITOR.
[2022-12-30 04:00] VITALS: BP 126/64
[2022-12-30 06:14] LABS: BASOPHILS % (AUTO) 0.1 % (0.0-2.0); EOSINOPHILS % (AUTO) 0.1 % (0.0-6.0); HEMATOCRIT 33 % (39-51); HEMOGLOBIN 11.2 g/dL (13.5-17.5); LYMPHOCYTES % (AUTO) 5.6 % (20.0-44.0); MEAN CORPUSCULAR HGB CONC 34 g/dl (31.0-36.0); MEAN CORPUSCULAR VOLUME 88 fL (80-96); MONOCYTES # (AUTO) 0.8 K/uL (0.1-1.30); MONOCYTES % (AUTO) 4.6 % (2.0-12.0); NEUTROPHILS # (AUTO) 15.2 K/uL (1.8-8.9); NEUTROPHILS % (AUTO) 89.6 % (43.0-81.0); PLATELET COUNT (AUTO) 224 K/uL (150-450); RED BLOOD CELL COUNT(AUTO) 3.79 MIL/uL (4.5-6.0)
[2022-12-30 06:38] LABS: ALANINE AMINOTRANSFERASE 33 U/L (12-78); ALBUMIN 2.3 g/dL (3.4-5.0); ALKALINE PHOSPHATASE 35 U/L (46-116); ASPARTATE AMINOTRANSFERASE 13 U/L (15-37); BILIRUBIN,TOTAL 0.7 mg/dL (0.2-1.0); CARBON DIOXIDE 23 mmol/L (21-32); CHLORIDE 105 mmol/L (98-107); CREATININE 2.2 mg/dL (0.6-1.3); GLUCOSE 154 mg/dL (74-106); POTASSIUM 4.1 mmol/L (3.5-5.1); SODIUM SERUM 138 mmol/L (136-145); TOTAL PROTEIN, SERUM 5.1 g/dL (6.4-8.2); UREA NITROGEN, BLOOD 65 mg/dL (7-18)
--- NOTE | 2022-12-30 07:00 | NUR ---
TELE GABY OPENING NOTES: RECEIVED PT IN BED AWAKE, ALERT AND ORIENTED X4 AND ABLE TO MAKE NEEDS KNOW,NO SOB NOTED ON O2 INHALATION @ 2LPM VIA NC AND TOLERATING WELL. ON TELE MONITOR WITH CURRENT READING: SR WITH PAC AND BBS @ 73BPM. DENIES PAIN AT THIS TIME. NOTED WITH IV ACCESS ON RFA GAUGE 22 AND LFA GAUGE 20 PATENT,INTACT AND SALINE LOCKED. ON BS MONITORING AND INSULIN ADMINISTRATION PER SL.SAFETY MEASURES MAINTAINED: BED LOCKED AND IN LOWEST POSITION, SIDERAILS UP X 2. CALL LIGHT IN EASY REACH FOR HELP, WILL MONITOR PT ACCORDINGLY.
--- NOTE | 2022-12-30 07:03 | NUR ---
PLUMBING DESIGNER CLOSING NOTES - PATIENT SLEEPING, EASY TO AROUSE. ABLE TO VERBALIZE NEEDS. NO ACUTE DISTRESS THROUGHOUT THE NIGHT. NO SOB OR , TOLERATING O2 AT 2LPM. NO C/O PAIN AT THIS TIME. AFEBRILE. ON TELE MONITOR READING SINUS RHYTHM WITH PAC AND BBB AT 74 BPM. BOTH LEFT AND RIGHT FOREARM IV ACCESS INTACT, PATENT AND FLUSHING. ALL DUE MEDS GIVEN AND NEEDS ATTENDED. SAFETY PRECAUTIONS MAINTAINED. WILL ENDORSE TO NEXT SHIFT FOR RIGOBERTO.
[2022-12-30] MEDS: PANTOPRAZOLE 40 MG TABLET.DR PO SCH (07:38)
[2022-12-30] MEDS: LEVOTHYROXINE SODIUM 137 MCG TABLET PO SCH (07:38)
[2022-12-30] MEDS: BLOOD SUGAR DIAGNOSTIC 1 EACH STRIP IN SCH ×4 (07:47→22:48)
[2022-12-30 08:00] VITALS: BP 121/72
[2022-12-30] MEDS: LINAGLIPTIN 5 MG TABLET PO SCH (08:33)
[2022-12-30] MEDS: predniSONE 20 MG TABLET PO SCH (08:33)
[2022-12-30] MEDS: ASPIRIN 81 MG TAB.CHEW PO SCH (08:33)
[2022-12-30] MEDS: ATORVASTATIN 10 MG TABLET PO SCH (08:33)
[2022-12-30] MEDS: FUROSEMIDE 40 MG TABLET PO SCH (08:34)
[2022-12-30] MEDS: HOME MED MISCELLANEOUS PO SCH ×2 (08:34→16:41)
[2022-12-30] MEDS: CARVEDILOL 6.25 MG TABLET PO SCH ×2 (08:34→16:42)
[2022-12-30] MEDS: AMIODARONE HCL 200 MG TABLET PO SCH ×2 (08:35→16:44)
[2022-12-30] MEDS: INSULIN REGULAR, HUMAN 100 UNIT/ML 3 ML VIAL SQ PRN ×4 (08:36→22:49)
[2022-12-30] MEDS: APIXABAN 2.5 MG TABLET PO SCH ×2 (08:38→16:45)
[2022-12-30 12:00] VITALS: BP 102/62
[2022-12-30 16:00] VITALS: BP 108/64
--- NOTE | 2022-12-30 18:42 | NUR ---
MOBILE DEVELOPMENT MANAGER CLOSING NOTES: PT IN BED AWAKE, ALERT AND ORIENTED X4 AND ABLE TO MAKE NEEDS KNOWN. WITH EPISODES OF SOB WHEN PT TAKING OFF HIS O2, ON O2 INHALATION @ 2LPM VIA NC AND SATURATING 98%. DENIES ANY PAIN AT THIS TIME. IV ACCESS ON RFA GAUGE 2,LFA GAUGE 20 PATENT,INTACT AND SALINE LOCKED. ON BLOOD SUGAR MONITORING, INSULIN ADMINISTRATION PER SLIDING SCALE. PT NOT NOTED WITH HYPO OR HYPERGLYCEMIA. ON ICT QUALITY ASSURANCE ENGINEER WITH CURRENT READING: SINUS RHYTHM @78 BPM. SAFETY MEASURES MAINTAINED: BED LOCKED AND IN LOWEST POSITION. SIDE RAILS UP X 2. CALL LIGHT IN EASY REACH FOR HELP. ENDORSED TO TALENT ACQUISITION ADMINISTRATOR RN FOR CONTINUITY OF CARE.
--- NOTE | 2022-12-30 19:30 | NUR ---
MALT LIQUORS SALES REPRESENTATIVE OPENING NOTES RECEIVED PATIENT IN BED AWAKE. ALERT AND ORIENTED. A/O X 4. NO S/S OF PAIN NOTED AT THIS TIME. ON 2L OXYGEN VIA NC, BREATHING EVEN AND UNLABORED, NO DISTRESS OR SOB NOTED. IV ACCESS RFA #22G AND LFA #20G BOTH INTACT. PATENT AND FLUSHING WELL. PATIENT WITH EXTERNAL ALLIED HEALTH PROFESSIONAL WITH SINUS RHYTHM, NO CARDIAC DISTRESS NOTED. WILL MAINTAIN FALL AND SAFETY MEASURES WITH BED IN LOWEST LOCKED POSITION, BED ALARM ON, SIDE RAILS UP AND CALL LIGHT WITHIN EASY REACH. WILL CONTINUE TO MONITOR THE PATIENT AND CARRY OUT ACTIVE MD ORDERS.
[2022-12-30 20:00] VITALS: BP 111/58
[2022-12-30] MEDS: ALBUTEROL FS 2.5 MG/3 ML VIAL.NEB NEB PRN (20:00)
--- NOTE | 2022-12-30 21:40 | NUR ---
RN NOTES-TESSALON PERLE 200MG GIVEN PATIENT RREQUESTED FOR A COUGH MEDICATION. TESSALON PERLE 200MG GIVEN PRN. WILL CONTINUE TO MONITOR THE PATIENT.
[2022-12-31] VITALS: BP 118/72
[2022-12-31] MEDS: ALBUTEROL FS 2.5 MG/3 ML VIAL.NEB NEB PRN ×2 (02:11→19:40)
[2022-12-31] MEDS: IPRATROPIUM NEB FS 0.5 MG/2.5 ML AMPUL.NEB NEB SCH ×4 (02:11→19:40)
[2022-12-31] MEDS: TEMAZEPAM 15 MG CAPSULE PO PRN (02:27)
--- NOTE | 2022-12-31 02:27 | NUR ---
RN NOTES- STACEYIL GIVEN PATIENT REQUESTED FOR SLEEPING MEDICATION DUE TO HAVING DIFFICULTY SLEEPING. WILL CONTINUE TO MONITOR THE PATIENT.
[2022-12-31 04:00] VITALS: BP 108/51
[2022-12-31 08:00] VITALS: BP 114/61
--- NOTE | 2022-12-31 08:37 | NUR ---
RN OPENING NOTE RECEIVED PATIENT IN BED AO x 4, ABLE TO RESPONDS PHYSICAL STIMULI. RESPIRATORY EVEN AND UNLABORED IN ROOM AIR. IN NO ACUTE RESPIRATORY DISTRESS OBSERVED. SKIN IS WARM TO TOUCH, KEEP CLEAN/DRY. KEPT ELEVATED HOB FOR ASPIRATION PRECAUTION AND ENSURE AIRWAY, ALSO LOWEST BED POSITIONED. BED ALARM IS ON AT ALL TIMES FOR SAFETY. CALL LIGHT WITHIN REACH, WILL CONTINUE TO MONITOR.
[2022-12-31] MEDS: APIXABAN 2.5 MG TABLET PO SCH ×2 (09:00→17:00)
[2022-12-31] MEDS: LINAGLIPTIN 5 MG TABLET PO SCH (10:04)
[2022-12-31] MEDS: CARVEDILOL 6.25 MG TABLET PO SCH ×2 (10:04→17:27)
[2022-12-31] MEDS: ATORVASTATIN 10 MG TABLET PO SCH (10:05)
[2022-12-31] MEDS: FUROSEMIDE 40 MG TABLET PO SCH (10:05)
[2022-12-31] MEDS: predniSONE 20 MG TABLET PO SCH (10:06)
[2022-12-31] MEDS: LEVOTHYROXINE SODIUM 137 MCG TABLET PO SCH (10:06)
[2022-12-31] MEDS: BLOOD SUGAR DIAGNOSTIC 1 EACH STRIP IN SCH ×4 (10:06→21:30)
[2022-12-31] MEDS: ASPIRIN 81 MG TAB.CHEW PO SCH (10:06)
[2022-12-31] MEDS: AMIODARONE HCL 200 MG TABLET PO SCH ×2 (10:06→17:27)
[2022-12-31] MEDS: PANTOPRAZOLE 40 MG TABLET.DR PO SCH (10:06)
[2022-12-31] MEDS: HOME MED MISCELLANEOUS PO SCH ×2 (10:08→17:28)
[2022-12-31 12:00] VITALS: BP 126/67
[2022-12-31] MEDS: INSULIN REGULAR, HUMAN 100 UNIT/ML 3 ML VIAL SQ PRN ×3 (12:16→21:35)
[2022-12-31 16:00] VITALS: BP 113/60
--- NOTE | 2022-12-31 18:00 | NUR ---
RN CLOSING NOTE PATIENT RESTING IN BED. IN NO ACUTE DISTRESS OBSERVED. RESPIRATORY EVEN AND UNLABORED ON OXYGEN AT 2Ls VIA NC, O2SAT 95%, THE PATIENT ON/OFF OXYGEN. NO SOB OR DESATURATION NOTED. SKIN IS WARM TO TOUCH KEEP CLEAN/DRY. KEPT ELEVATED HOB FOR ENSURE AIRWAY/ASPIRATION PRECAUTION, AND LOWEST BED POSITION. BED ALARM IS ON AT ALL TIMES FOR SAFETY. CALL LIGHT WITHIN REACH, WILL ENDORSE ASSEMBLER BICYCLE.
--- NOTE | 2022-12-31 19:15 | NUR ---
WELLNESS EDUCATOR OPENING NOTE RECEIVED PATIENT FROM AM NURSE; PATIENT IN BED, A/O X 4, ABLE TO MAKE NEEDS KNOWN; CURRENTLY ON ROOM AIR, TOLERATING WELL AND NO S/S OF DISTRESS NOTED; WITH IV ACCESSES ON RIGHT FA G#22 AND LEFT FA G#20 SALINE LOCK; NO COMPLAINTS OF PAIN AND DISCOMFORT AT THIS TIME; ENCOURAGED VERBALIZATION OF NEEDS; SAFETY MEASURES IMPLEMENTED, BED IN LOW AND LOCKED POSITION, SIDE RAILS UP X 2, CALL LIGHT AND TABLE WITHIN REACH; WILL CONTINUE TO MONITOR THROUGHOUT SHIFT
[2022-12-31 20:00] VITALS: BP 112/62
[2023-01-01] VITALS: BP 114/61
[2023-01-01] MEDS: ALBUTEROL FS 2.5 MG/3 ML VIAL.NEB NEB PRN ×3 (01:03→13:47)
[2023-01-01] MEDS: IPRATROPIUM NEB FS 0.5 MG/2.5 ML AMPUL.NEB NEB SCH ×3 (01:04→13:47)
[2023-01-01 04:00] VITALS: BP 109/57
--- NOTE | 2023-01-01 06:51 | NUR ---
GEOTECHNICAL DEPARTMENT MANAGER CLOSING NOTE PATIENT IN BED, A/O X 4, ABLE TO MAKE NEEDS KNOWN; CURRENTLY ON ROOM AIR, TOLERATING WELL AND NO S/S OF DISTRESS NOTED; WITH IV ACCESSES ON RIGHT FA G#22 AND LEFT FA G#20 SALINE LOCK, INTACT AND PATENT; NO COMPLAINTS OF PAIN AND DISCOMFORT AT THIS TIME; ADMINISTERED MEDICATIONS PRESCRIBED; PATIENT'S NEEDS ATTENDED; MONITORED PATIENT ACCORDINGLY; SAFETY MEASURES IMPLEMENTED, BED IN LOW AND LOCKED POSITION, SIDE RAILS UP X 2, CALL LIGHT AND TABLE WITHIN REACH; WILL ENDORSE TO AM NURSE FOR RIGOBERTO.
[2023-01-01 07:25] LABS: BASOPHILS % (AUTO) 0.1 % (0.0-2.0); HEMATOCRIT 32 % (39-51); HEMOGLOBIN 10.9 g/dL (13.5-17.5); LYMPHOCYTES # (AUTO) 0.7 K/uL (0.8-4.8); LYMPHOCYTES % (AUTO) 4.4 % (20.0-44.0); MEAN CORPUSCULAR HGB CONC 34 g/dl (31.0-36.0); MEAN CORPUSCULAR VOLUME 89 fL (80-96); MONOCYTES # (AUTO) 0.7 K/uL (0.1-1.30); MONOCYTES % (AUTO) 4.6 % (2.0-12.0); NEUTROPHILS # (AUTO) 14.2 K/uL (1.8-8.9); NEUTROPHILS % (AUTO) 90.9 % (43.0-81.0); PLATELET COUNT (AUTO) 214 K/uL (150-450); WHITE BLOOD COUNT (AUTO) 15.6 K/uL (4.3-11.0)
[2023-01-01 07:49] LABS: ALANINE AMINOTRANSFERASE 30 U/L (12-78); ALBUMIN 2.3 g/dL (3.4-5.0); ALKALINE PHOSPHATASE 38 U/L (46-116); ASPARTATE AMINOTRANSFERASE 11 U/L (15-37); BILIRUBIN,TOTAL 0.6 mg/dL (0.2-1.0); CALCIUM, SERUM 7.8 mg/dL (8.5-10.1); CARBON DIOXIDE 27 mmol/L (21-32); CHLORIDE 105 mmol/L (98-107); GLUCOSE 158 mg/dL (74-106); POTASSIUM 4.1 mmol/L (3.5-5.1); SODIUM SERUM 136 mmol/L (136-145); TOTAL PROTEIN, SERUM 4.9 g/dL (6.4-8.2); UREA NITROGEN, BLOOD 59 mg/dL (7-18)
--- NOTE | 2023-01-01 08:00 | NUR ---
LAMINATION OPERATOR OPENING NOTE: RECEIVED PATIENT LYING IN BED A/A/OX4. O2 IN ROOM AIR, NO S/S OF RESPIRATORY DISTRESS NOTED. DENIES PAIN AT PRESENT. IV ACCESS AT RFA#22G INTACT, LFA#20 INTACT. SAFETY MEASURES IN PLACE. BEC LOCKED TO THE LOWEST POSITION, CALL LIGHT, TABLE WITHIN REACH. HOB ELEVATED TO SEMI-VALDES POSITION. PATIENT INSTRUCTED TO CALL FOR ASSISTANCE WHEN HE WANTS TO AMBULATE. STEADY GAIT NOTED. PATIENT VERBALIZED UNDERSTANDING INSTRUCTIONS. WILL CONTINUE TO MONITOR.
[2023-01-01] MEDS: PANTOPRAZOLE 40 MG TABLET.DR PO SCH (08:02)
[2023-01-01] MEDS: LEVOTHYROXINE SODIUM 137 MCG TABLET PO SCH (08:02)
[2023-01-01] MEDS: INSULIN REGULAR, HUMAN 100 UNIT/ML 3 ML VIAL SQ PRN (08:45)
[2023-01-01] MEDS: FUROSEMIDE 40 MG TABLET PO SCH (09:00)
[2023-01-01] MEDS ORDERED: predniSONE 20 MG TABLET PO SCH (09:00)
[2023-01-01] MEDS: ATORVASTATIN 10 MG TABLET PO SCH (09:36)
[2023-01-01] MEDS: LINAGLIPTIN 5 MG TABLET PO SCH (09:38)
[2023-01-01] MEDS: ASPIRIN 81 MG TAB.CHEW PO SCH (09:38)
[2023-01-01] MEDS: CARVEDILOL 6.25 MG TABLET PO SCH (09:48)
[2023-01-01 09:52] VITALS: BP 110/70
[2023-01-01] MEDS: APIXABAN 2.5 MG TABLET PO SCH (09:52)
[2023-01-01] MEDS: AMIODARONE HCL 200 MG TABLET PO SCH (09:52)
--- NOTE | 2023-01-01 10:41 | NUR ---
o2 2l/m pulse ox 97% when r/a satuations 89 % patient needs oxygen home
[2023-01-01] MEDS: HOME MED MISCELLANEOUS PO SCH (13:27)
[2023-01-01] MEDS: BLOOD SUGAR DIAGNOSTIC 1 EACH STRIP IN SCH ×2 (15:12→15:13)
--- NOTE | 2023-01-01 18:00 | NUR ---
WILDLIFE BIOLOGIST DISCHARGE NOTE PATIENT A/A/XX4, O2 IN ROOM AIR 97% SATURATION. NO RESPIRATORY DISTRESS NOTED. PATIENT STABLE TO BE DISCHARGE PER DOCTOR. IV ACCESS REMOVED CATHETER TIP INTACT NO S/S OF INFILTRATION NOTED. PRESSURE DRESSING APPLIED. DISCHARGE INSTRUCTIONS EXPLAINED TO PATIENT, PATIENT WILL BINDERY OPERATOR MEDICATION AT HIS PHARMACY. HOME HEALTH NURSE WILL FOLLOW UP. GOING HOME ACCOMPANIES BY COMPUTER SYSTEMS SECURITY ADMINISTRATOR STAFF AND PATIENT'S VIA W/C. PATIENT WILL FOLLOW UP WITH DOCTORS APPOINTMENT WITHIN 1-2 WEEKS. PATIENT VERBALIZED UNDERSTANDING INSTRUCTIONS.
== END 2023-01-01 16:36 | disposition home health service (06) | DRG 871 ==
LOC: ER 12:56 → ICU 15:42 → TELE-TD 12-22 17:53 → TELE1 12-27 09:33
PROVIDERS: ADMIT Nurse Practitioner Acute Care; ATTEND Internal Medicine
DX: A41.9 Sepsis, unspecified organism (principal); I21.4 Non-ST elevation (NSTEMI) myocardial infarction; I50.23 Acute on chronic systolic (congestive) heart failure; J96.21 Acute and chronic respiratory failure with hypoxia; J15.6 Pneumonia due to other Gram-negative bacteria; R65.21 Severe sepsis with septic shock; N17.0 Acute kidney failure with tubular necrosis; R57.0 Cardiogenic shock; J44.0 Chronic obstructive pulmonary disease with (acute) lower respiratory infection; J44.1 Chronic obstructive pulmonary disease with (acute) exacerbation; I13.0 Hypertensive heart and chronic kidney disease with heart failure and stage 1 through stage 4 chronic kidney disease, or unspecified chronic kidney disease; I42.9 Cardiomyopathy, unspecified; E87.20 Acidosis, unspecified; Z20.822 Contact with and (suspected) exposure to COVID-19; I25.10 Atherosclerotic heart disease of native coronary artery without angina pectoris; Z95.810 Presence of automatic (implantable) cardiac defibrillator; E11.9 Type 2 diabetes mellitus without complications; Z90.49 Acquired absence of other specified parts of digestive tract; Z85.850 Personal history of malignant neoplasm of thyroid; Z90.89 Acquired absence of other organs; Z88.1 Allergy status to other antibiotic agents; Z79.51 Long term (current) use of inhaled steroids; Z79.84 Long term (current) use of oral hypoglycemic drugs; Z79.82 Long term (current) use of aspirin; Z79.899 Other long term (current) drug therapy; N18.9 Chronic kidney disease, unspecified; E11.22 Type 2 diabetes mellitus with diabetic chronic kidney disease; E89.0 Postprocedural hypothyroidism; Y84.9 Medical procedure, unspecified as the cause of abnormal reaction of the patient, or of later complication, without mention of misadventure at the time of the procedure; Y82.9 Unspecified medical devices associated with adverse incidents; Y92.009 Unspecified place in unspecified non-institutional (private) residence as the place of occurrence of the external cause; F17.200 Nicotine dependence, unspecified, uncomplicated; K80.20 Calculus of gallbladder without cholecystitis without obstruction; Z79.01 Long term (current) use of anticoagulants; Z99.81 Dependence on supplemental oxygen; N20.0 Calculus of kidney; I48.91 Unspecified atrial fibrillation; F41.9 Anxiety disorder, unspecified; D35.02 Benign neoplasm of left adrenal gland; E78.5 Hyperlipidemia, unspecified; E86.1 Hypovolemia
CPT/HCPCS: 36415; 71045-TC; 71250-TC; 76770-TC; 80048-TC; 80053-TC; 80061-TC; 80076-TC; 80202-TC; 81001; 82272-TC; 82570-TC; 82962-TC; 83605-TC; 83735-TC; 83880; 84100-TC; 84300-TC; 84484-TC; 85025-TC; 86480; 87040-TC; 87081-TC; 87086-TC; 93307-TC; 94762-TC; 94799-TC; 97530-TC; A4216; A4223; C9803; G0378; J0282; J1644; J1815; J1940; J1956; J2270; J2920; J2930; J3370; J3490; J7040; J7042; J7050; J7060

== ENCOUNTER 2024-02-14 06:50 | Emergency (ER) | payer MEDICARE, OTHER ==
[~2024-02-14] VITALS: Ht 177.8 cm; Wt 78.9 kg
[~2024-02-14 06:50] MED LIST changes: +ALBU18HF2 IH; -ALBU18HF2 INH; -ALIR75PE SQ; +AMIO200T7 PO; +APIX2.5T PO; -IPRA3AMP23 IH; +POTA20TA83 PO; +SPIR25TA6 PO
[2024-02-14] MEDS ORDERED: IBUPROFEN 600 MG TABLET ONE (07:01)
[2024-02-14] MEDS ORDERED: HYDROCODONE/APAP 5/325MG TABLET ONE (07:01)
[2024-02-14] MEDS ORDERED: ACET-2605 PO (07:11)
[2024-02-14] MEDS ORDERED: CLIN300C12 PO (07:11)
[2024-02-14] MEDS: IBUPROFEN 600 MG TABLET PO ONE (07:21)
[2024-02-14] MEDS: HYDROCODONE/APAP 5/325MG TABLET PO ONE (07:22)
[2024-02-14 09:17] VITALS: BP 121/82; TEMP 98.4; O2SAT 99
== END 2024-02-14 09:17 | disposition home or self-care (01) ==
LOC: ER 06:52
DX: L03.115 Cellulitis of right lower limb (principal); M79.671 Pain in right foot; I10 Essential (primary) hypertension; E11.9 Type 2 diabetes mellitus without complications; Z90.09 Acquired absence of other part of head and neck; Z88.8 Allergy status to other drugs, medicaments and biological substances; F10.10 Alcohol abuse, uncomplicated; F17.200 Nicotine dependence, unspecified, uncomplicated; Y90.9 Presence of alcohol in blood, level not specified
CPT/HCPCS: 73630-TC

== ENCOUNTER 2024-06-25 19:48 | Emergency (ER) | payer MEDICARE, OTHER ==
[~2024-06-25] VITALS: Ht 170.2 cm; Wt 78.9 kg
[~2024-06-25 19:48] MED LIST changes: +ACET-2605 PO; +CLIN300C12 PO
[2024-06-25 21:00] VITALS: BP 140/80; TEMP 98.5
[2024-06-25] MEDS ORDERED: CIPR7.5D9 EACH EAR (21:21)
[2024-06-25] MEDS ORDERED: KETO10TA2 PO (21:24)
[2024-06-25 21:35] VITALS: O2SAT 97
== END 2024-06-25 22:04 | disposition home or self-care (01) ==
LOC: ER 19:50
DX: H60.91 Unspecified otitis externa, right ear (principal); I10 Essential (primary) hypertension; F17.200 Nicotine dependence, unspecified, uncomplicated; Z90.89 Acquired absence of other organs; Z95.810 Presence of automatic (implantable) cardiac defibrillator; Z79.84 Long term (current) use of oral hypoglycemic drugs; Z79.82 Long term (current) use of aspirin; Z79.01 Long term (current) use of anticoagulants; Z79.899 Other long term (current) drug therapy; Z88.1 Allergy status to other antibiotic agents

== ENCOUNTER 2024-11-10 19:39 | Inpatient (IN) | payer MEDICARE, OTHER ==
[~2024-11-10] VITALS: Ht 170.2 cm; Wt 78.9 kg
[~2024-11-10 19:39] MED LIST changes: +CIPR7.5D9 EACH EAR; +KETO10TA2 PO
[2024-11-10] MEDS ORDERED: ACETAMINOPHEN ES 500 MG TABLET ONE (20:17)
[2024-11-10] MEDS ORDERED: PIPERACI/TAZO 3.375GM/D5W 50ML PB IV ONE (20:17)
[2024-11-10] MEDS ORDERED: VANCOMYCIN 1 GM /D5W 250 ML PB IV ONE (20:17)
[2024-11-10] MEDS: IV NS 0.9% 500 ML BAG IV ONE (20:25)
[2024-11-10] MEDS: PIPERACILLIN /TAZOBACTAM 3.375 G in IV D5W 50 ML IV ONE (20:25)
[2024-11-10] MEDS: ACETAMINOPHEN ES 500 MG TABLET PO ONE (20:28)
[2024-11-10 20:36] LABS: BASOPHILS % (AUTO) 0.5 % (0.0-2.0); EOSINOPHILS % (AUTO) 0.2 % (0.0-6.0); HEMATOCRIT 39 % (39-51); HEMOGLOBIN 13.5 g/dL (13.5-17.5); LYMPHOCYTES # (AUTO) 0.7 K/uL (0.8-4.8); LYMPHOCYTES % (AUTO) 7.4 % (20.0-44.0); MEAN CORPUSCULAR HEMOGLOBIN 30 PG (26.0-33.0); MEAN CORPUSCULAR HGB CONC 35 g/dl (31.0-36.0); MEAN CORPUSCULAR VOLUME 88 fL (80-96); MONOCYTES # (AUTO) 0.5 K/uL (0.1-1.30); NEUTROPHILS # (AUTO) 8.1 K/uL (1.8-8.9); NEUTROPHILS % (AUTO) 86.9 % (43.0-81.0); PLATELET COUNT (AUTO) 141 K/uL (150-450); RED BLOOD CELL COUNT(AUTO) 4.44 MIL/uL (4.5-6.0); RED CELL DISTRIBUTION WIDTH 14.8 % (11.5-15.0); WHITE BLOOD COUNT (AUTO) 9.4 K/uL (4.3-11.0)
[2024-11-10 20:47] LABS: CALCIUM, SERUM 8.5 mg/dL (8.5-10.1); CARBON DIOXIDE 29 mmol/L (21-32); CHLORIDE 105 mmol/L (98-107); CREATININE 2.1 mg/dL (0.6-1.3); GLUCOSE 208 mg/dL (74-106); POTASSIUM 3.4 mmol/L (3.5-5.1); SODIUM SERUM 144 mmol/L (136-145); UREA NITROGEN, BLOOD 25 mg/dL (7-18)
[2024-11-10 20:52] LABS: INR 1.01 (0.91-1.10); PARTIAL THROMBOPLASTIN TIME 27.5 SEC (24.3-34.3); PROTHROMBIN TIME 10.7 SECS (9.2-11.1)
[2024-11-10 21:00] LABS: ALANINE AMINOTRANSFERASE 32 U/L (12-78); ALBUMIN 3.6 g/dL (3.4-5.0); ALKALINE PHOSPHATASE 85 U/L (46-116); ASPARTATE AMINOTRANSFERASE 22 U/L (15-37); BILIRUBIN,DIRECT 0.2 mg/dL (0.0-0.2); BILIRUBIN,TOTAL 0.8 mg/dL (0.2-1.0); TOTAL PROTEIN, SERUM 7.3 g/dL (6.4-8.2)
[2024-11-10] MEDS: VANCOMYCIN 1 GM in IV D5W 250 ML IV ONE (21:00)
[2024-11-10 21:01] LABS: LACTIC ACID 2.3 mmol/L (0.4-2.0)
[2024-11-10 22:16] LABS: APPEARANCE,URINE CLEAR (CLEAR); BILIRUBIN,URINE NEGATIVE (NEGATIVE); BLOOD, URINE TRACE-INTA Ery/uL (NEGATIVE); COLOR,URINE YELLOW (YELLOW); KETONES,URINE NEGATIVE (NEGATIVE); LEUKOCYTE ESTERASE ,URINE NEGATIVE (NEGATIVE); NITRITE, URINE NEGATIVE (NEGATIVE); PROTEIN,URINE TRACE mg/dl (NEGATIVE); UGLUCOSE 3+ mg/dL (NEGATIVE); UROBILINOGEN,URINE 0.2 EU/dL (0.2)
[2024-11-10 22:56] LABS: ADD URINE CULTURE NO; BACTERIA,URINE None seen /HPF (None Seen); RBC,URINE 0-2 /HPF (0-2); SQUAMOUS EPITHELIAL CELL,UR None Seen /HPF (None Seen); WBC,URINE 0-2 /HPF (0-3)
[2024-11-10] MEDS ORDERED: ONDANSETRON HCL/PF 4 MG/2 ML VIAL IVP PRN (23:00)
[2024-11-10] MEDS ORDERED: Z GUARD REMEDY 4 OZ OINT TP PRN (23:00)
[2024-11-11] VITALS (7 sets, daily range): BP systolic 117–151; BP diastolic 58–70; TEMP 98.1–99.5; O2SAT 92–96
[2024-11-11] MEDS: POTASSIUM CHLORIDE 20 MEQ TAB.PRT.SR PO ONE (01:22)
[2024-11-11] MEDS: ZOLPIDEM TARTRATE 5 MG TABLET PO ONE (02:14)
[2024-11-11] MEDS: PIPERACI/TAZO 3.375GM/D5W 50ML PB IV ONE (02:33)
[2024-11-11] MEDS: ZOSYN IVPB 3.375 G in IV D5W 50ml IV ONE ×2 (02:38→10:28)
[2024-11-11 06:46] LABS: BASOPHILS % (AUTO) 0.1 % (0.0-2.0); EOSINOPHILS % (AUTO) 0.1 % (0.0-6.0); HEMATOCRIT 37 % (39-51); HEMOGLOBIN 12.5 g/dL (13.5-17.5); LYMPHOCYTES # (AUTO) 1.8 K/uL (0.8-4.8); LYMPHOCYTES % (AUTO) 12.3 % (20.0-44.0); MEAN CORPUSCULAR HEMOGLOBIN 30 PG (26.0-33.0); MEAN CORPUSCULAR HGB CONC 34 g/dl (31.0-36.0); MEAN CORPUSCULAR VOLUME 88 fL (80-96); MONOCYTES # (AUTO) 0.9 K/uL (0.1-1.30); MONOCYTES % (AUTO) 6.5 % (2.0-12.0); NEUTROPHILS # (AUTO) 11.7 K/uL (1.8-8.9); PLATELET COUNT (AUTO) 143 K/uL (150-450); RED BLOOD CELL COUNT(AUTO) 4.15 MIL/uL (4.5-6.0); WHITE BLOOD COUNT (AUTO) 14.4 K/uL (4.3-11.0)
[2024-11-11] MEDS: PANTOPRAZOLE 40 MG TABLET.DR PO SCH (06:55)
[2024-11-11] MEDS: LEVOTHYROXINE SODIUM 137 MCG TABLET PO SCH (06:56)
[2024-11-11 07:32] LABS: ALBUMIN 3.1 g/dL (3.4-5.0); CALCIUM, SERUM 8.1 mg/dL (8.5-10.1); MAGNESIUM 1.9 mg/dL (1.8-2.4); PHOSPHORUS 3.2 mg/dL (2.5-4.9); POTASSIUM 3.5 mmol/L (3.5-5.1)
[2024-11-11] MEDS: POTASSIUM CHLORIDE 20 MEQ TAB.PRT.SR PO SCH (08:35)
[2024-11-11] MEDS: AMIODARONE HCL 200 MG TABLET PO SCH (08:36)
[2024-11-11] MEDS: CARVEDILOL 6.25 MG TABLET PO SCH (08:36)
[2024-11-11] MEDS: ATORVASTATIN 10 MG TABLET PO SCH (08:36)
[2024-11-11] MEDS: ASPIRIN 81 MG TAB.CHEW PO SCH (08:43)
[2024-11-11] MEDS: APIXABAN 2.5 MG TABLET PO SCH (08:43)
[2024-11-11] MEDS: SPIRONOLACTONE 25 MG TABLET PO SCH (08:44)
[2024-11-11] MEDS: DAPAGLIFLOZIN PROPANEDIOL 5 MG TABLET PO SCH (08:46)
[2024-11-11] MEDS: ALBUTEROL HALF STRENGTH 1.25 MG/3 ML VIAL.NEB NEB SCH (13:10)
[2024-11-11] MEDS: IPRATROPIUM NEB FS 0.5 MG/2.5 ML AMPUL.NEB NEB SCH (13:10)
[2024-11-11] MEDS: ZOSYN IVPB 3.375 G in IV D5W 50ml IV SCH (15:29)
[2024-11-11] MEDS: ACETAMINOPHEN 325 MG TABLET PO PRN (15:35)
[2024-11-11] MEDS: SACUBITRIL/VALSARTAN 49/51MG TABLET PO SCH (17:54)
[2024-11-12] VITALS (12 sets, daily range): BP systolic 113–140; BP diastolic 63–73; TEMP 97.5–99.5; O2SAT 92–99
[2024-11-12 06:43] LABS: BASOPHILS % (AUTO) 0.2 % (0.0-2.0); EOSINOPHILS # (AUTO) 0.2 K/uL (0.0-0.7); EOSINOPHILS % (AUTO) 1.5 % (0.0-6.0); HEMATOCRIT 37 % (39-51); HEMOGLOBIN 12.4 g/dL (13.5-17.5); LYMPHOCYTES % (AUTO) 6.5 % (20.0-44.0); MEAN CORPUSCULAR HEMOGLOBIN 30 PG (26.0-33.0); MEAN CORPUSCULAR HGB CONC 34 g/dl (31.0-36.0); MEAN CORPUSCULAR VOLUME 89 fL (80-96); MONOCYTES # (AUTO) 0.7 K/uL (0.1-1.30); MONOCYTES % (AUTO) 4.5 % (2.0-12.0); NEUTROPHILS # (AUTO) 13.1 K/uL (1.8-8.9); NEUTROPHILS % (AUTO) 87.3 % (43.0-81.0); PLATELET COUNT (AUTO) 142 K/uL (150-450); RED BLOOD CELL COUNT(AUTO) 4.16 MIL/uL (4.5-6.0); RED CELL DISTRIBUTION WIDTH 15.1 % (11.5-15.0)
[2024-11-12 07:03] LABS: CALCIUM, SERUM 8.6 mg/dL (8.5-10.1); CREATININE 2.1 mg/dL (0.6-1.3); POTASSIUM 3.8 mmol/L (3.5-5.1)
[2024-11-12 07:22] LABS: PHOSPHORUS 2.3 mg/dL (2.5-4.9)
[2024-11-12] MEDS: VANCOMYCIN 1 GM in IV D5W 250 ML IV SCH (08:03)
[2024-11-12 08:16] LABS: URINE TOTAL PROTEIN 68.8 mg/dL (0-11.9)
[2024-11-12] MEDS: GUAIFENESIN/D-METHORPHAN HB 5 ML UDC PO PRN (13:05)
[2024-11-12] MEDS: ALBUTEROL HALF STRENGTH 1.25 MG/3 ML VIAL.NEB NEB SCH (13:56)
[2024-11-12] MEDS: IPRATROPIUM NEB FS 0.5 MG/2.5 ML AMPUL.NEB NEB SCH (13:56)
[2024-11-12] MEDS: K PHOS NEUTRAL 250 MG TABLET PO ONE (16:34)
[2024-11-13] VITALS (13 sets, daily range): BP systolic 124–138; BP diastolic 66–72; TEMP 98.4–99; O2SAT 93–99
[2024-11-13] MEDS: ALBUTEROL FS 2.5 MG/3 ML VIAL.NEB NEB PRN (02:04)
[2024-11-13 07:10] LABS: CALCIUM, SERUM 8.9 mg/dL (8.5-10.1); CREATININE 2.2 mg/dL (0.6-1.3); POTASSIUM 3.8 mmol/L (3.5-5.1)
[2024-11-13 07:32] LABS: PHOSPHORUS 3.9 mg/dL (2.5-4.9)
[2024-11-13] MEDS: LINAGLIPTIN 5 MG TABLET PO SCH (08:26)
[2024-11-13 09:41] LABS: ABG BASE EXCESS -1.6 mmol/L (-2.0-3.0); ABG OXYGEN SATURATION 90.1 % (94.0-98.0); ABG PCO2 32.9 mmHg (35.0-48.0); ABG PO2 57.7 mmHg (83.0-108.0); ABG TOTAL HEMOGLOBIN 12.3 G/dL (13.5-17.5); COHb 0.3 % (0.5-1.5); MetHb 0.2 % (0.0-1.5); O2Hb 89.6 % (94.0-97.0); SITE, ABG RIGHT RADIAL
[2024-11-13] MEDS: GUAIFENESIN LA 600 MG TABLET.SA PO SCH (14:43)
[2024-11-13] MEDS: TEMAZEPAM 15 MG CAPSULE PO PRN (23:23)
[2024-11-14 01:07] VITALS: O2SAT 92
[2024-11-14 01:22] VITALS: O2SAT 99
[2024-11-14 07:12] LABS: CALCIUM, SERUM 9.1 mg/dL (8.5-10.1); CREATININE 2.2 mg/dL (0.6-1.3); POTASSIUM 3.6 mmol/L (3.5-5.1)
[2024-11-14 07:36] VITALS: O2SAT 94
[2024-11-14 07:55] VITALS: O2SAT 99
[2024-11-14 08:00] VITALS: BP 156/80; TEMP 98.6; O2SAT 94
[2024-11-14 08:13] VITALS: BP 156/80
[2024-11-14] MEDS ORDERED: LEVO500T90 PO (10:22)
[2024-11-14] MEDS ORDERED: GUAI600T53 PO (10:22)
[2024-11-14] MEDS ORDERED: ALBU18HF2 INH (12:22)
== END 2024-11-14 13:31 | disposition home health service (06) | DRG 193 ==
LOC: ER 19:40 → TELE 22:26 → MED 11-12 16:37
PROVIDERS: ADMIT Nurse Practitioner Family; ATTEND Nurse Practitioner Acute Care
DX: J15.9 Unspecified bacterial pneumonia (principal); I21.A1 Myocardial infarction type 2; J96.01 Acute respiratory failure with hypoxia; N17.0 Acute kidney failure with tubular necrosis; E87.20 Acidosis, unspecified; I13.0 Hypertensive heart and chronic kidney disease with heart failure and stage 1 through stage 4 chronic kidney disease, or unspecified chronic kidney disease; N18.4 Chronic kidney disease, stage 4 (severe); J44.0 Chronic obstructive pulmonary disease with (acute) lower respiratory infection; I50.22 Chronic systolic (congestive) heart failure; E44.1 Mild protein-calorie malnutrition; I42.9 Cardiomyopathy, unspecified; E87.6 Hypokalemia; I48.91 Unspecified atrial fibrillation; Z20.822 Contact with and (suspected) exposure to COVID-19; Z99.81 Dependence on supplemental oxygen; Z95.810 Presence of automatic (implantable) cardiac defibrillator; E11.22 Type 2 diabetes mellitus with diabetic chronic kidney disease; E89.0 Postprocedural hypothyroidism; Z88.1 Allergy status to other antibiotic agents; Z79.01 Long term (current) use of anticoagulants; Z79.51 Long term (current) use of inhaled steroids; Z79.82 Long term (current) use of aspirin; Z79.890 Hormone replacement therapy; Z79.899 Other long term (current) drug therapy; M89.8X9 Other specified disorders of bone, unspecified site; I25.10 Atherosclerotic heart disease of native coronary artery without angina pectoris; G47.33 Obstructive sleep apnea (adult) (pediatric); F17.200 Nicotine dependence, unspecified, uncomplicated; E78.5 Hyperlipidemia, unspecified; E88.09 Other disorders of plasma-protein metabolism, not elsewhere classified; D64.9 Anemia, unspecified; Z71.6 Tobacco abuse counseling; Z79.84 Long term (current) use of oral hypoglycemic drugs
CPT/HCPCS: 36415; 36600; 71045-TC; 80048-TC; 80061-TC; 80076-TC; 80202-TC; 81001; 82040-TC; 82570-TC; 82803-TC; 83605-TC; 83735-TC; 83880; 84100-TC; 84300-TC; 84484-TC; 85025-TC; 85730-TC; 87040-TC; 87086-TC; 93307-TC; 94760-TC; 94761-TC; 94799-TC; A4223; G0378; J2543; J3370; J7040; J7050; J7060

== ENCOUNTER 2025-06-28 10:20 | Inpatient (IN) | payer MEDICARE, OTHER ==
[~2025-06-28] VITALS: Ht 167.6 cm; Wt 80.0 kg
[~2025-06-28 10:20] MED LIST changes: +ALBU18HF2 INH; +ALBU8.5H8 INH; +ALIR75PE SQ; +AMIO200T5 PO; +AZIT250T13 PO; +Aspirin Ec PO; +CARV12.52 PO; +CHOL100043 PO; -CIPR7.5D9 EACH EAR; +CLON0.1T PO; +DAPA10TA PO; +FLUT1BLS6 IH; +FURO-144 PO; +GUAI600T53 PO; -KETO10TA2 PO; +LEVO500T90 PO; +LEVO750T46 PO; +MAGN400T26 PO; +MONT10TA22 PO; +OSEL75CA PO; +P-EP-427 PO; +PRED20TA PO; +SITA50TA PO; +VERQUVO PO
[2025-06-28] MEDS ORDERED: Magnesium 1GM/D5W 100ML PREMIX 100 ML IV ONE ×2 (11:07→12:32)
[2025-06-28 11:14] LABS: PLATELET COUNT (AUTO) 165 K/uL (150-450); RED BLOOD CELL COUNT(AUTO) 4.47 MIL/uL (4.5-6.0); RED CELL DISTRIBUTION WIDTH 15.7 % (11.5-15.0); WHITE BLOOD COUNT (AUTO) 9.7 K/uL (4.3-11.0)
[2025-06-28] MEDS: Magnesium 1GM/D5W 100ML PREMIX 200 ML IV ONE (11:15)
[2025-06-28 11:27] LABS: CALCIUM, SERUM 8.9 mg/dL (8.5-10.1); CREATININE 2.2 mg/dL (0.6-1.3); SODIUM SERUM 147 mmol/L (136-145); UREA NITROGEN, BLOOD 24 mg/dL (7-18)
[2025-06-28 11:42] LABS: ASPARTATE AMINOTRANSFERASE 16 U/L (15-37); NT-PRO BNP 7451 pg/mL (0-125); TOTAL PROTEIN, SERUM 7.1 g/dL (6.4-8.2)
[2025-06-28] MEDS ORDERED: ASPIRIN 325 MG TABLET ONE (11:49)
[2025-06-28] MEDS: ASPIRIN 325 MG TABLET PO ONE (11:51)
[2025-06-28] MEDS ORDERED: ALBUTEROL FS 2.5 MG/3 ML VIAL.NEB ONE (11:55)
[2025-06-28] MEDS ORDERED: IPRATROPIUM NEB FS 0.5 MG/2.5 ML AMPUL.NEB ONE (11:55)
[2025-06-28 11:59] VITALS: O2SAT 94
[2025-06-28] MEDS: ALBUTEROL FS 2.5 MG/3 ML VIAL.NEB CONTNEB ONE (11:59)
[2025-06-28] MEDS: IPRATROPIUM NEB FS 0.5 MG/2.5 ML AMPUL.NEB NEB ONE (11:59)
[2025-06-28 12:12] VITALS: O2SAT 97; O2SAT 98
[2025-06-28] MEDS ORDERED: IVAB5TAB PO (13:51)
[2025-06-28] MEDS ORDERED: VERQUVO XX SCH (14:00)
[2025-06-28] MEDS ORDERED: CORLANOR 5 MG XX SCH (14:00)
[2025-06-28] MEDS ORDERED: CLONIDINE HCL 0.1 MG TABLET PO PRN (14:00)
[2025-06-28] MEDS ORDERED: IPRATROPIUM NEB FS 0.5 MG/2.5 ML AMPUL.NEB NEB PRN (14:00)
[2025-06-28] MEDS ORDERED: DEXTROSE 50%-WATER 50 ML DISP.SYRIN IV PRN (14:00)
[2025-06-28] MEDS ORDERED: ONDANSETRON HCL/PF 4 MG/2 ML VIAL IVP PRN (14:00)
[2025-06-28] MEDS ORDERED: MAG HYDROX/AL HYDROX/SIMETH 30 ML UDC PO PRN (14:00)
[2025-06-28] MEDS ORDERED: ALIROCUMAB 75 MG/ML XX SCH (14:00)
[2025-06-28] MEDS ORDERED: Z GUARD REMEDY 4 OZ OINT TP PRN (14:00)
[2025-06-28] MEDS ORDERED: ACETAMINOPHEN 325 MG TABLET PO PRN (14:00)
[2025-06-28] MEDS ORDERED: HYDROCODONE/APAP 5/325MG TABLET PO PRN (14:00)
[2025-06-28] MEDS ORDERED: ALBUTEROL FS 2.5 MG/3 ML VIAL.NEB NEB PRN (14:00)
[2025-06-28] MEDS ORDERED: MAGNESIUM HYDROXIDE 30 ML UDC PO PRN (14:00)
[2025-06-28 20:40] VITALS: BP 174/76; TEMP 97.3; O2SAT 97
[2025-06-28 20:50] VITALS: BP 174/76; TEMP 97.3; O2SAT 97
[2025-06-28] MEDS: CARVEDILOL 12.5 MG TABLET PO SCH ×2 (21:00→21:14)
[2025-06-28] MEDS: MAGNESIUM OXIDE 400 MG TABLET PO SCH (21:05)
[2025-06-28] MEDS: FUROSEMIDE 40 MG TABLET PO SCH (21:06)
[2025-06-28] MEDS: APIXABAN 2.5 MG TABLET PO SCH (21:06)
[2025-06-28] MEDS: AMIODARONE HCL 200 MG TABLET PO SCH (21:15)
[2025-06-28] MEDS: BLOOD SUGAR DIAGNOSTIC 1 EACH STRIP IN SCH (21:46)
[2025-06-28] MEDS: INSULIN REGULAR, HUMAN 100 UNIT/ML 3 ML VIAL SQ PRN (21:49)
[2025-06-28] MEDS: TEMAZEPAM 15 MG CAPSULE PO PRN (23:51)
[2025-06-29] VITALS (10 sets, daily range): BP systolic 132–155; BP diastolic 65–89; TEMP 97.5–98.1; O2SAT 93–98
[2025-06-29 06:15] LABS: PLATELET COUNT (AUTO) 167 K/uL (150-450); RED BLOOD CELL COUNT(AUTO) 4.45 MIL/uL (4.5-6.0); RED CELL DISTRIBUTION WIDTH 15.5 % (11.5-15.0); WHITE BLOOD COUNT (AUTO) 10.7 K/uL (4.3-11.0)
[2025-06-29] MEDS: PANTOPRAZOLE 40 MG TABLET.DR PO SCH (06:34)
[2025-06-29] MEDS: LEVOTHYROXINE SODIUM 137 MCG TABLET PO SCH (06:34)
[2025-06-29 06:40] LABS: CALCIUM, SERUM 9.0 mg/dL (8.5-10.1); CREATININE 1.9 mg/dL (0.6-1.3); PHOSPHORUS 3.4 mg/dL (2.5-4.9); SODIUM SERUM 144.0 mmol/L (136-145); UREA NITROGEN, BLOOD 28.0 mg/dL (7-18)
[2025-06-29 06:41] LABS: LDL 155.0 mg/dL (0-99)
[2025-06-29] MEDS: CHOLECALCIFEROL 1,000 UNIT TABLET (VIT D3) PO SCH (08:56)
[2025-06-29] MEDS ORDERED: SITAGLIPTIN PHOSPHATE 50 MG TABLET PO SCH (09:00)
[2025-06-29] MEDS: SULFAMETH/TRIMETH 800/160 MG 1 UDTAB TABLET PO SCH (09:54)
[2025-06-29] MEDS: LINAGLIPTIN 5 MG TABLET PO SCH (10:00)
[2025-06-29] MEDS: DAPAGLIFLOZIN PROPANEDIOL 10 MG TABLET PO SCH (10:42)
[2025-06-29] MEDS: IPRATROPIUM NEB FS 0.5 MG/2.5 ML AMPUL.NEB NEB SCH (13:27)
[2025-06-29] MEDS: ALBUTEROL HALF STRENGTH 1.25 MG/3 ML VIAL.NEB NEB SCH (13:27)
[2025-06-30] VITALS (10 sets, daily range): BP systolic 143–150; BP diastolic 82–89; TEMP 97.5–98.1; O2SAT 94–98
[2025-06-30 05:59] LABS: PLATELET COUNT (AUTO) 163 K/uL (150-450); RED BLOOD CELL COUNT(AUTO) 4.31 MIL/uL (4.5-6.0); RED CELL DISTRIBUTION WIDTH 15.8 % (11.5-15.0); WHITE BLOOD COUNT (AUTO) 14.8 K/uL (4.3-11.0)
[2025-06-30 06:04] LABS: ASPARTATE AMINOTRANSFERASE 12.0 U/L (15-37); CALCIUM, SERUM 8.9 mg/dL (8.5-10.1); CREATININE 2.1 mg/dL (0.6-1.3); PHOSPHORUS 4.4 mg/dL (2.5-4.9); SODIUM SERUM 145.0 mmol/L (136-145); TOTAL PROTEIN, SERUM 6.7 g/dL (6.4-8.2); UREA NITROGEN, BLOOD 39.0 mg/dL (7-18)
[2025-06-30 06:07] LABS: CREATINE KINASE, TOTAL 108.0 U/L (39-308)
[2025-06-30] MEDS: POTASSIUM CHLORIDE 20 MEQ TAB.PRT.SR PO SCH (10:26)
[2025-06-30] MEDS: FUROSEMIDE 100 MG/10 ML VIAL IV SCH (10:26)
[2025-07-01 02:02] VITALS: O2SAT 94
[2025-07-01 02:19] VITALS: O2SAT 98
[2025-07-01 05:57] LABS: PLATELET COUNT (AUTO) 154 K/uL (150-450); RED BLOOD CELL COUNT(AUTO) 4.40 MIL/uL (4.5-6.0); RED CELL DISTRIBUTION WIDTH 15.4 % (11.5-15.0); WHITE BLOOD COUNT (AUTO) 11.7 K/uL (4.3-11.0)
[2025-07-01 06:07] LABS: PTH, INTACT 106 pg/mL (15-65)
[2025-07-01 06:11] LABS: CALCIUM, SERUM 8.4 mg/dL (8.5-10.1); CREATININE 2.4 mg/dL (0.6-1.3); SODIUM SERUM 141.0 mmol/L (136-145); UREA NITROGEN, BLOOD 53.0 mg/dL (7-18)
[2025-07-01 06:12] LABS: ASPARTATE AMINOTRANSFERASE 11.0 U/L (15-37); PHOSPHORUS 5.1 mg/dL (2.5-4.9); TOTAL PROTEIN, SERUM 6.8 g/dL (6.4-8.2)
[2025-07-01 07:03] VITALS: O2SAT 96
[2025-07-01 07:13] VITALS: O2SAT 97; O2SAT 99
[2025-07-01 08:00] VITALS: BP 137/78; TEMP 97.9; O2SAT 99
[2025-07-01] MEDS ORDERED: PRED20TA PO (08:32)
[2025-07-01] MEDS ORDERED: SULF1TAB48 PO (08:32)
[2025-07-01 09:00] VITALS: BP 137/78
== END 2025-07-01 11:48 | disposition home health service (06) | DRG 280 ==
LOC: ER 10:20 → TELE 19:16 → MED 06-29 09:57
PROVIDERS: ADMIT Nurse Practitioner Acute Care; ATTEND Nurse Practitioner Acute Care
DX: I13.0 Hypertensive heart and chronic kidney disease with heart failure and stage 1 through stage 4 chronic kidney disease, or unspecified chronic kidney disease (principal); I50.23 Acute on chronic systolic (congestive) heart failure; I21.A1 Myocardial infarction type 2; J44.1 Chronic obstructive pulmonary disease with (acute) exacerbation; N18.4 Chronic kidney disease, stage 4 (severe); E87.0 Hyperosmolality and hypernatremia; J90 Pleural effusion, not elsewhere classified; I42.9 Cardiomyopathy, unspecified; I25.10 Atherosclerotic heart disease of native coronary artery without angina pectoris; E11.22 Type 2 diabetes mellitus with diabetic chronic kidney disease; E78.5 Hyperlipidemia, unspecified; E89.0 Postprocedural hypothyroidism; Z95.810 Presence of automatic (implantable) cardiac defibrillator; Z88.1 Allergy status to other antibiotic agents; Z79.51 Long term (current) use of inhaled steroids; Z79.82 Long term (current) use of aspirin; Z79.01 Long term (current) use of anticoagulants; Z79.899 Other long term (current) drug therapy; Z79.890 Hormone replacement therapy; Z85.850 Personal history of malignant neoplasm of thyroid; Z85.038 Personal history of other malignant neoplasm of large intestine; Z90.49 Acquired absence of other specified parts of digestive tract; Z79.4 Long term (current) use of insulin; Z79.84 Long term (current) use of oral hypoglycemic drugs; F17.200 Nicotine dependence, unspecified, uncomplicated; M89.8X9 Other specified disorders of bone, unspecified site; N20.0 Calculus of kidney; K40.20 Bilateral inguinal hernia, without obstruction or gangrene, not specified as recurrent; K80.20 Calculus of gallbladder without cholecystitis without obstruction; I48.0 Paroxysmal atrial fibrillation
CPT/HCPCS: 36415; 71045-TC; 80048-TC; 80053-TC; 80061-TC; 80076-TC; 82550-TC; 82962-TC; 83735-TC; 83880; 83970; 84100-TC; 84155; 84165; 84484-TC; 85025-TC; 87081-TC; 94760-TC; 94799-TC; 97112-TC; 97116-TC; 97530-TC; G0378; J1815; J1938; J2919; J3475